=== PATIENT | female | born 1955 | race African-American/Black ===

== ENCOUNTER 2016-06-02 11:33 | Inpatient (IN) | payer MEDICARE, MEDICAID ==
--- NOTE | 2016-06-02 11:47 | ED Physician Chart ---
Chief Complaint/HPI - Patient Information Date Seen:: 06/02/16 Time Seen:: 11:42 Chief Complaint:: BEHAVIOR PROBLEM X 3 DAYS. History of Present Illness:: This 60-year-old female was referred to the emergency department for psychiatric evaluation. She has been striking out at other patients and staff and this began 3 days ago. The patient is unable to give any further information regarding her situation due to dementia. Allergies:: Allergies Allergy/AdvReac Type Severity Reaction Status Date / Time MDX Penicillin [Penicillin] Allergy Unknown Verified 11/22/12 20:18 Review of Systems - Review of Systems General/Constitutional: No fever, No chills, Weakness, No diaphoresis, Other ( patient had weakness on the left side in both the upper and the lower extremity. 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 CVA.) Skin: Other (the patient denies any skin lesions or isaac but has extensive areas of what appear to be skin grafting over her back and her extremities.) Head: No headache, No light-headedness Eyes: No loss of vision, No diplopia ENT: No earache, No nasal drainage, No sore throat Neck: No neck pain, No swelling, No thyromegaly, Stiffness (patient has stiffness in both the right hand and the left upper extremity.), No mass noted Cardio Vascular: No chest pain, No palpitations, No edema Pulmonary: No SOB, No cough, No sputum GI: No nausea, No vomiting, No diarrhea, No pain G/U: No dysuria, No frequency, No hematuria Clerical Aide: No abnormal vaginal bleed Musculoskeletal: No bone or joint pain, No muscle pain (it is unknown if the patient has a prior psychiatric history.) Psychiatric: Other ( It is unknown if the patient has a prior psychiatric history.) Hematopoietic: No bruising Neurological: No syncope, No weakness, No headache, No vertigo Past Medical History - Past Medical History Past Medical History: HTN, DM, Asthma/COPD, Dementia Social History: Care Facility Family Medical History - Family Member Mother History Unknown: Yes Physical Exam - Physical Examination General/Constitutional: Awake, Well-developed, well-nourished, Alert, No distress Other Gen/Cons comments:: Cooperative and follows directions. Non-ambulatory due to prior CVA. Head: Atraumatic Eyes: Lids, conjuctiva normal, EOMI (patient's EOM) Other Eyes comments:: The patient's extraocular muscles are intact with no nystagmus. She has very small pupils that do not respond further to light. She has moderate arcus of both eyes especially in the 12:00 areas. Skin: No rash, No ecchymosis, Well hydrated Other Skin comments:: As mentioned above the patient has what appear to be skin grafting over the back and right upper extremity. ENMT: Nasal exam nl, Lips, teeth, gums nl, Oropharynx nl, Tonsils nl Neck: Nontender, No JVD, No nuchal rigidity, No mass Respiratory: Nl effort/Exclusion Other Respiratory comments:: Patient has decreased breath sounds throughout with occasional expiratory wheezing. She does not appear to be in respiratory distress. Patient's pulse ox is 95% on room air. Other Cardio Vascular comments:: Patient's pulse rate is regular. Heart tones are extremely distant and I don't appreciate any murmurs or gallops. GI: No tenderness/rebounding/guarding, No organomegaly, No hernia, Normal BS's, Nondistended, No mass/bruits, No McBurney tenderness : No CVA tenderness Extremities: No tenderness or effusion, No edema Other Extremities comments:: Patient has severe contractures of both the right and the left hand. She was unable to open her fingers whatsoever on the right side. Patient has no calf tenderness or Homans sign. Other Neuro/Psych comments:: The patient is alert and oriented to the year. She also gives her name immediately without hesitation. The patient appears to be confabulating with some of her answers. Labs/Radiology/EKG Results - Lab Results Results: Single view portable AP chest x-ray: There is no cardiomegaly. No congestive failure or pleural effusions. No pneumothorax. Mediastinal widening. No areas of pulmonary consolidation or infiltrates. Impression: No acute cardiopulmonary findings. Laboratory Results - last 24 hr 06/02/16 06/02/16 06/02/16 12:00 12:00 13:00 WBC 9.6 RBC 5.68 H Hgb 17.1 H D Hct 51.6 H D MCV 90.9 MCH 30.0 MCHC Differential 33.1 RDW 12.3 Plt Count 451 H MPV 7.5 Neutrophils % 68.4 Lymphocytes % 23.8 Monocytes % 4.3 Eosinophils % 1.2 Basophils % 2.3 H Sodium 139 Potassium 4.1 Chloride 102 Carbon Dioxide 30.2 Anion Gap 10.9 BUN 24 Creatinine 1.0 Est GFR ( Amer) > 60.0 Est GFR (Non-Af Amer) 59.7 BUN/Creatinine Ratio 24.0 Glucose 102 Calcium 10.2 Total Bilirubin 0.3 AST 20 ALT 16 Alkaline Phosphatase 154 H Total Protein 8.0 Albumin 4.1 Globulin 3.9 Albumin/Globulin Ratio 1.1 Urine Source [place] Urine Color YELLOW Urine Clarity CLEAR Urine pH 6.0 Ur Specific [place] 1.025 Urine Protein NEGATIVE Urine Glucose (UA) NEGATIVE Urine Ketones NEGATIVE Urine Blood TRACE Urine Nitrate NEGATIVE Urine Bilirubin NEGATIVE Urine Urobilinogen 0.2 Ur Leukocyte Esterase NEGATIVE Urine RBC 2-5 Urine WBC 0-2 Ur Epithelial Cells FEW Urine Bacteria FEW Laboratory interpretation: The CBC shows no leukocytosis. The hemoglobin level is high at 17.1. This may be an indication of mild dehydration. Electrolytes were all within normal parameters. The patient's renal function is normal. There is mild elevation of the alkaline phosphatase with the other liver enzymes being within normal parameters. The UA shows no evidence for acute UTI. MDM: MEDICAL CAUSES OF ALTERED BEHAVIOR OR MENTATION: THE CXR WAS NEGATIVE FOR PNEUMONIA. LAB STUDIES WERE NEGATIVE FOR ANY SIGNIFICANT ABNORMALITIES. THIS CHANGE IN BEHAVIOR IS NOT ACCOUNTED FOR BY ELECTROLYTE IMBALANCE. SEPSIS, UTI OR PNEUMONIA. ED Septic Shock - . Is Septic Shock (SBP<90, OR Lactate>4 mmol\L) present?: No Reassessment (Disposition) - Reassessment Reassessment Condition:: Unchanged - Patient Disposition Discharge/Transfer:: Acute Care w/in this hosp ED Discharge Plan - Patient Disposition Admit/Discharge/Transfer: Other Care w/in this hosp Condition at Disposition: Improved
[2016-06-02 12:10] LABS: % BASOPHILS 2.3 % (0.0-2.0); % EOSINOPHILS 1.2 % (0.0-5.0); % LYMPHOCYTES 23.8 % (20.0-50.0); % MONOCYTES 4.3 % (2.0-10.0); % NEUTROPHILS 68.4 % (40.0-80.0); MEAN CELL VOLUME 90.9 fl (81-100); MEAN CORPUSCULAR HGB CONC 33.1 pg (28.0-36.0); MEAN PLATELET VOLUME 7.5 fl; NEUTROPHILE ABSOLUTE 6.6 Th/cmm (1.8-8.0); PLATELET COUNT 451 Th/cmm (150-400); RED BLOOD COUNT 5.68 Mil/cmm (3.80-5.10); RED CELL DISTRIBUTION WIDTH 12.3 % (11.5-20.0); WHITE BLOOD COUNT 9.6 Th/cmm (4.8-10.8)
[2016-06-02 12:16] LABS: HEMATOCRIT 51.6 % (35.0-45.0); HEMOGLOBIN 17.1 gm/dL (11.7-15.5)
[2016-06-02 12:25] LABS: ALB/GLOB RATIO 1.1 (1.0-1.8); ALKALINE PHOSPHATASE 154 U/L (34-104); ANION GAP 10.9 (7.0-16.0); BILIRUBIN,TOTAL 0.3 mg/dL (0.3-1.0); BUN - UREA NITROGEN 24 mg/dL (7-25); CALCIUM SERUM 10.2 mg/dL (8.6-10.3); CARBON DIOXIDE 30.2 mEq/L (21.0-31.0); CHLORIDE 102 mEq/L (98-107); GLUCOSE 102 mg/dL (70-105); POTASSIUM SERUM 4.1 mEq/L (3.5-5.1); SGOT 20 U/L (13-39); SGPT/ALT 16 U/L (7-52); SODIUM SERUM 139 mEq/L (136-145)
[2016-06-02 13:18] LABS: URINE BILIRUBIN NEGATIVE (NEGATIVE); URINE BLOOD TRACE (NEGATIVE); URINE COLOR YELLOW; URINE GLUCOSE (UA) NEGATIVE (NEGATIVE); URINE KETONE NEGATIVE (NEGATIVE); URINE PROTEIN NEGATIVE (NEGATIVE)
[2016-06-02 13:19] LABS: URINE UROBILINOGEN 0.2 E.U./dL (0.2 - 1.0)
[2016-06-02 13:27] LABS: URINE BACTERIA FEW /hpf (NONE SEEN); URINE EPITHELIAL CELLS FEW /lpf (FEW); URINE WBC 0-2 /hpf (0-5)
--- NOTE | 2016-06-02 14:03 | Diagnostic Imaging Report ---
CHEST X-RAY: AP view INDICATION: Pneumonia COMPARISON: None FINDINGS: Mild chronic changes are noted. There is no focal consolidation or pleural effusions heart size is normal. Mildly tortuous aorta is noted. Spinal scoliosis is noted. Nonspecific staple is seen projecting along left hilar region. IMPRESSION: No focal airspace consolidation identified.
[2016-06-02] MEDS ORDERED: Maalox 30 mL Cup PO PRN (15:50)
[2016-06-02] MEDS ORDERED: Magnesium Hydroxide (MOM) 30 mL UDC PO PRN (15:50)
[2016-06-02 16:24] VITALS: BP 154/74
[2016-06-02] MEDS ORDERED: Non-Formulary Item 1 EA (Mylanta 30 ML) PO PRN (17:27)
[2016-06-03] MEDS ORDERED: Non-Formulary Item 1 EA (Multivitamin [Multivitamins] 1 SGL) PO SCH (09:00)
[2016-06-03] MEDS: Aspirin 81mg Chewable Tab PO SCH (09:32)
[2016-06-03] MEDS: Triple Antibiotic 0.94 gm Pkt TP SCH (09:32)
[2016-06-03] MEDS: Multivitamin Tab PO SCH (09:32)
[2016-06-03] MEDS: Lactulose 10 Gm/15 mL 30mL UDC PO SCH ×2 (09:32→17:41)
--- NOTE | 2016-06-03 19:42 | Psychosocial Evaluation ---
ATTENDING PHYSICIAN: Vashti Moe M.D. IDENTIFYING DATA: The patient is a 60-year-old woman, resident of [facility]. Information was obtained by directly interviewing the patient as well as reviewing admission papers and they are reliable. JUSTIFICATION FOR HOSPITALIZATION: The patient is admitted here on a voluntary basis in view of her psychosis and agitation. CHIEF COMPLAINT: "I do not know." HISTORY OF PRESENT ILLNESS: This is the first psychiatric hospitalization to [facility] for this patient, who is reported to have been out of control, screaming and yelling and getting easily agitated and hence, the patient has been referred over here for stabilization. Chart is reviewed. The patient is interviewed. During the evaluation, the patient is stating that she has said everything, there is no need for her to give any more information and the patient is very guarded, suspicious and is turning away from me and most of the information has to be obtained by reviewing the charts and talking to the staff members. The patient is reported to have been diagnosed with psychosis and has been maintained on 2.5 mg of the Zyprexa prior to her being hospitalized. PAST PSYCHIATRIC HISTORY: Details are not known. MEDICAL HISTORY AND PHYSICAL EXAMINATION: Requested to be done by Dr. Montes. SUBSTANCE ABUSE HISTORY: None. PHYSICAL OR SEXUAL ABUSE HISTORY: None at this time. LEGAL PROBLEMS: None at this time. SOCIAL HISTORY: The patient is a resident of [facility]. MENTAL STATUS EXAMINATION: The patient is 60 years old, looking older than her stated age, superficially cooperative. Eye contact is poor. Mood is noted to be irritable. Affect is constricted. The patient is getting easily irritable. The patient has paranoid delusions, but denies any command hallucinations. The patient is alert and awake. Attention span and concentration are noted to be fair at this time. The patient has been getting easily upset even for simple questions. I am not able to get much of information from this patient yet. DIAGNOSTIC IMPRESSION: AXIS I: Psychotic disorder, unspecified, rule out schizophrenia chronic paranoid type. AXIS II: None. AXIS III: As per Dr. Montes. IMMEDIATE TREATMENT PLAN: The patient is going to be observed on Inpatient Unit, provided with supportive psychotherapy. The patient is going to be closely monitored. Once stabilized, the patient is going to be discharged to [facility], to be followed up on an outpatient basis. The patient here is going to be continued on the Zyprexa. JOB# [id number]
[2016-06-04] MEDS: Multivitamin Tab PO SCH (09:32)
[2016-06-04] MEDS: Aspirin 81mg Chewable Tab PO SCH (09:35)
[2016-06-04] MEDS: Triple Antibiotic 0.94 gm Pkt TP SCH (09:35)
[2016-06-04] MEDS: Lactulose 10 Gm/15 mL 30mL UDC PO SCH (09:38)
--- NOTE | 2016-06-04 22:25 | Progress Notes ---
TIME PATIENT SEEN: 12:30 p.m. SUBJECTIVE: Staff was spoken to. The patient is interviewed. Mood is noted to be irritable. Affect is constricted. Continues to be paranoid, has been displaying acute mood swings. The patient is currently on Zyprexa 2.5 mg and has been able to tolerate the medications. No side effects of medications are noted. ASSESSMENT: The patient is still psychotic and impulsive. PLAN: To continue the patient with supportive therapy and follow up. JOB# [id number]
[2016-06-05] MEDS: Lactulose 10 Gm/15 mL 30mL UDC PO SCH ×3 (09:32→17:01)
[2016-06-05] MEDS: Multivitamin Tab PO SCH (09:32)
[2016-06-05] MEDS: Triple Antibiotic 0.94 gm Pkt TP SCH (09:32)
[2016-06-05] MEDS: Aspirin 81mg Chewable Tab PO SCH (09:32)
--- NOTE | 2016-06-05 22:24 | Progress Notes ---
SUBJECTIVE: The patient was seen today. She remains superficially irritable with episodes of agitation, some yelling. The patient is still guarded, paranoid, talking to herself. Insight is poor. Judgment remains impaired. ASSESSMENT: The patient is still in psychotic phase. PLAN: We will continue medication management, continue stabilization, continue current level of care. The patient is receiving Zyprexa 2.5 mg by mouth at bedtime. Consider increasing dose gradually. The patient is also on Aricept 10 mg by mouth at bedtime. [facility]# [id number]
[2016-06-06] MEDS: Triple Antibiotic 0.94 gm Pkt TP SCH (09:33)
[2016-06-06] MEDS: Multivitamin Tab PO SCH (09:35)
[2016-06-06] MEDS: Aspirin 81mg Chewable Tab PO SCH (09:35)
[2016-06-06] MEDS: Lactulose 10 Gm/15 mL 30mL UDC PO SCH ×2 (09:36→17:45)
--- NOTE | 2016-06-07 02:30 | Progress Notes ---
SUBJECTIVE: The patient was seen, discussed with staff and chart reviewed. Still angry, irritable, easily agitated, prefers to stay by herself. The patient's insight is still limited. Judgment remains impaired. The patient however is taking her medications. The patient is currently on Zyprexa 2.5 mg p.o. at bedtime and she has no side effects. ASSESSMENT: The patient is still highly disorganized, still paranoid. PLAN: We will increase Zyprexa to 5 mg p.o. at bedtime. Monitor closely. JOB# [id number]
[2016-06-07] MEDS: Triple Antibiotic 0.94 gm Pkt TP SCH (09:20)
[2016-06-07] MEDS: Multivitamin Tab PO SCH (09:20)
[2016-06-07] MEDS: Aspirin 81mg Chewable Tab PO SCH (09:20)
[2016-06-07] MEDS: Lactulose 10 Gm/15 mL 30mL UDC PO SCH ×2 (09:20→17:45)
--- NOTE | 2016-06-08 04:10 | Progress Notes ---
SUBJECTIVE: The patient was seen, discussed with staff. Chart was reviewed. Still somewhat restless, anxious. Still with anger outbursts. Continues to have episodes where she is talking to herself. However, she is taking her medications. Sleep is fair. Appetite is still ____ on a low side. ASSESSMENT: The patient still in psychotic phase. PLAN: We will continue medication management, continue stabilization, continue supportive measures, monitor mood closely. [facility]# [id number]
[2016-06-08] MEDS: Lactulose 10 Gm/15 mL 30mL UDC PO SCH ×2 (08:26→17:36)
[2016-06-08] MEDS: Aspirin 81mg Chewable Tab PO SCH (08:27)
[2016-06-08] MEDS: Multivitamin Tab PO SCH (08:27)
[2016-06-08] MEDS: Triple Antibiotic 0.94 gm Pkt TP SCH (14:54)
--- NOTE | 2016-06-08 19:45 | History & Physical ---
INTERNAL MEDICINE HISTORY AND PHYSICAL: DATE OF ADMISSION: 06/02/2016 DATE OF TRANSFER: 06/08/2016 CHIEF COMPLAINT: Increasing agitation. HISTORY OF PRESENT ILLNESS: This is a 61-year-old -[place] female with history of stroke, gastritis, generalized contractures and COPD, who was admitted from a nursing facility under ____ Dr. Smith. The patient ____ shortness of breath, nausea and vomiting. PAST MEDICAL HISTORY: As mentioned in History of Present illness. PAST SURGICAL HISTORY: Denies surgeries in the past. ALLERGIES: Penicillin. MEDICATIONS: Aspirin, Tylenol, Aricept, lactulose, metoprolol, multivitamins, Zyprexa. FAMILY HISTORY: Noncontributory SOCIAL HISTORY: The patient smokes. Denies alcohol or intravenous drug use. Single. REVIEW OF SYSTEMS: This is limited secondary to the patient's current mental status. We will try to obtain more detailed review of system at a later date ____ number [phone]. Also try to get information from the patient's primary care doctor at the nursing facility as well as from Dr. Smith . PHYSICAL EXAMINATION: VITAL SIGNS: Blood pressure 130/___, respirations 20, pulse 69, temperature 97.6. GENERAL: An elderly female, appears stated age, appears chronically ill. NECK: Supple. No mass. EXTREMITIES: Positive contractures in upper extremities. LUNGS: Equal breath sounds, otherwise clear to auscultation. HEART: Regular rate and rhythm without appreciable murmurs. ABDOMEN: Soft, nontender, globular. Positive bowel sounds. EXTREMITIES: Positive contractures as mentioned above. NEUROLOGIC: Decreased motor and sensory. Gait not seen. LABORATORY DATA: WBC 9.6, hemoglobin 17.1, platelets are 451. Sodium 139, potassium ____, BUN 24, creatinine 1.0. Blood sugar 139. ____. ASSESSMENT AND PLAN: 1. Chronic obstructive pulmonary disease. 2. Erythrocytosis. 3. Stroke. 4. Gastritis. 5. Contractures. 6. Hyperglycemia. 7. Hypertension. 8. Asthma. We will continue the patient on oxygen and bronchodilator treatments; continue on Plavix and aspirin. We will place her on fall precaution. Continue her on beta-tri. We will continue to follow the patient closely. JOB# [id number]
--- NOTE | 2016-06-09 05:05 | Progress Notes ---
SUBJECTIVE: The patient was seen, discussed with staff. Still irritable, talking to herself, some paranoia, episodes of agitation, but less compared to the time of admission. The patient is taking her medications. Sleep is fair. Appetite is little bit better. Insight is still poor, judgment still impaired. ASSESSMENT: The patient continues to be in psychotic phase. PLAN: Continue hospitalization and monitor closely. [facility]# [id number]
[2016-06-09] MEDS: Lactulose 10 Gm/15 mL 30mL UDC PO SCH ×2 (08:48→16:06)
[2016-06-09] MEDS: Multivitamin Tab PO SCH (08:50)
[2016-06-09] MEDS: Aspirin 81mg Chewable Tab PO SCH (08:50)
[2016-06-09] MEDS: Triple Antibiotic 0.94 gm Pkt TP SCH (08:51)
--- NOTE | 2016-06-09 15:03 | Internal Medicine Prog Note ---
Internal Medicine Subjective - Subjective Service Date: 06/09/16 Patient seen and examined:: with staff Patient is:: awake Per staff patient is:: no adverse event Internal Medicine Objective - Results Result Diagrams: 06/02/16 12:00 06/02/16 12:00 Recent Labs: Laboratory Last Values WBC 9.6 Th/cmm (4.8-10.8) 06/02/16 12:00 RBC 5.68 Mil/cmm (3.80-5.10) H 06/02/16 12:00 Hgb 17.1 gm/dL (11.7-15.5) H D 06/02/16 12:00 Hct 51.6 % (35.0-45.0) H D 06/02/16 12:00 MCV 90.9 fl (81-100) 06/02/16 12:00 MCH 30.0 pg (27.0-31.0) 06/02/16 12:00 MCHC Differential 33.1 pg (28.0-36.0) 06/02/16 12:00 RDW 12.3 % (11.5-20.0) 06/02/16 12:00 Plt Count 451 Th/cmm (150-400) H 06/02/16 12:00 MPV 7.5 fl 06/02/16 12:00 Neutrophils % 68.4 % (40.0-80.0) 06/02/16 12:00 Lymphocytes % 23.8 % (20.0-50.0) 06/02/16 12:00 Monocytes % 4.3 % (2.0-10.0) 06/02/16 12:00 Eosinophils % 1.2 % (0.0-5.0) 06/02/16 12:00 Basophils % 2.3 % (0.0-2.0) H 06/02/16 12:00 Sodium 139 mEq/L (136-145) 06/02/16 12:00 Potassium 4.1 mEq/L (3.5-5.1) 06/02/16 12:00 Chloride 102 mEq/L (98-107) 06/02/16 12:00 Carbon Dioxide 30.2 mEq/L (21.0-31.0) 06/02/16 12:00 Anion Gap 10.9 (7.0-16.0) 06/02/16 12:00 BUN 24 mg/dL (7-25) 06/02/16 12:00 Creatinine 1.0 mg/dL (0.6-1.2) 06/02/16 12:00 Est GFR ( Amer) > 60.0 ml/min (>90) 06/02/16 12:00 Est GFR (Non-Af Amer) 59.7 ml/min 06/02/16 12:00 BUN/Creatinine Ratio 24.0 06/02/16 12:00 Glucose 102 mg/dL (70-105) 06/02/16 12:00 POC Glucose 159 MG/DL (70 - 105) H 06/02/16 20:07 Calcium 10.2 mg/dL (8.6-10.3) 06/02/16 12:00 Total Bilirubin 0.3 mg/dL (0.3-1.0) 06/02/16 12:00 AST 20 U/L (13-39) 06/02/16 12:00 ALT 16 U/L (7-52) 06/02/16 12:00 Alkaline Phosphatase 154 U/L (34-104) H 06/02/16 12:00 Total Protein 8.0 gm/dL (6.0-8.3) 06/02/16 12:00 Albumin 4.1 gm/dL (3.7-5.3) 06/02/16 12:00 Globulin 3.9 gm/dL 06/02/16 12:00 Albumin/Globulin Ratio 1.1 (1.0-1.8) 06/02/16 12:00 Urine Source [place] 06/02/16 13:00 Urine Color YELLOW 06/02/16 13:00 Urine Clarity CLEAR (CLEAR) 06/02/16 13:00 Urine pH 6.0 06/02/16 13:00 Ur Specific [place] 1.025 (1.005-1.030) 06/02/16 13:00 Urine Protein NEGATIVE mg/dL (NEGATIVE) 06/02/16 13:00 Urine Glucose (UA) NEGATIVE mg/dL (NEGATIVE) 06/02/16 13:00 Urine Ketones NEGATIVE mg/dL (NEGATIVE) 06/02/16 13:00 Urine Blood TRACE (NEGATIVE) 06/02/16 13:00 Urine Nitrate NEGATIVE (NEGATIVE) 06/02/16 13:00 Urine Bilirubin NEGATIVE (NEGATIVE) 06/02/16 13:00 Urine Urobilinogen 0.2 E.U./dL (0.2 - 1.0) 06/02/16 13:00 Ur Leukocyte Esterase NEGATIVE (NEGATIVE) 06/02/16 13:00 Urine RBC 2-5 /hpf (0-5) 06/02/16 13:00 Urine WBC 0-2 /hpf (0-5) 06/02/16 13:00 Ur Epithelial Cells FEW /lpf (FEW) 06/02/16 13:00 Urine Bacteria FEW /hpf (NONE SEEN) 06/02/16 13:00 - Physical Exam Vitals and I&O: Vital Signs Temp 97.5 F 06/09/16 06:14 Pulse 66 06/09/16 08:49 Resp 18 06/09/16 06:14 BP 117/63 06/09/16 08:49 Pulse Ox 98 06/09/16 06:14 Intake & Output 06/08/16 06/09/16 06/09/16 18:59 06:59 18:59 Intake Total 800 120 Balance 800 120 Intake: Oral 800 120 Other: # Voids 3 3 # Bowel Movements 0 Active Medications: Current Medications Acetaminophen (Tylenol) 650 mg PO Q4HR PRN PRN Reason: PAIN OR TEMP >100.5 Stop: 08/01/16 17:26 Al Hydrox/Mg Hydrox/Simethicone (Maalox) 30 ml PO Q4HR PRN PRN Reason: GI DISTRESS Stop: 08/01/16 15:49 Aspirin (Aspirin Chewable) 81 mg PO DAILY [facility] Stop: 08/02/16 08:59 Last Admin: 06/09/16 08:50 Dose: 81 mg Clonidine HCl (Catapres) 0.1 mg PO Q8H PRN PRN Reason: HTN Stop: 08/01/16 17:26 Clopidogrel Bisulfate (Plavix) 75 mg PO DAILY [facility] Stop: 08/02/16 08:59 Last Admin: 06/09/16 08:50 Dose: 75 mg Donepezil HCl (Aricept) 5 mg PO HS [facility] Stop: 08/01/16 20:59 Last Admin: 06/08/16 20:38 Dose: 5 mg Lactulose (Cephulac) 20 gm PO BID [facility] Stop: 08/02/16 08:59 Last Admin: 03/03/17 08:48 Dose: 20 gm Lorazepam (Ativan) 0.5 mg PO Q4HR PRN; Protocol PRN Reason: Anxiety Stop: 07/02/16 15:49 Magnesium Oxide (Mag-Oxide) 400 mg PO DAILY [facility] Stop: 08/02/16 08:59 Last Admin: 06/09/16 08:49 Dose: 400 mg Metoprolol Succinate (Toprol Xl) 25 mg PO DAILY [facility] Stop: 08/02/16 08:59 Last Admin: 06/09/16 08:49 Dose: Not Given Multivitamins/Vitamin C (Theragran) 1 tab PO DAILY [facility] Stop: 08/02/16 08:59 Last Admin: 06/09/16 08:50 Dose: 1 tab Neomycin/Polymyxin/Bacitracin (Triple Antibiotic Pkt) 1 pkt TP DAILY [facility] Stop: 08/02/16 08:59 Last Admin: 06/09/16 08:51 Dose: Not Given Olanzapine (Zyprexa) 5 mg PO HS [facility] PRN Reason: Protocol Stop: 08/05/16 20:59 Last Admin: 06/08/16 20:38 Dose: 5 mg Zolpidem Tartrate (Ambien) 5 mg PO HS PRN PRN Reason: Insomnia Stop: 08/01/16 15:49 General: alert HEENT: NC/AT, PERRLA Neck: Supple Lungs: CTAB Cardiovascular: RRR, Normal S1, Normal S2, without murmur Abdomen: soft non-tender, non-distended, positive bowel sound Extremities: clear Neurological: no change Internal Medicine Assmt/Plan - Assessment Assessment: COPD ERYTHROCYTOSIS STROKE GASTRITIS CONTRACTURES HYPERGLYCEMIA HTN ASTHMA - Plan Plan: BRONCHODILATORS NEEDED MONITOR GLUCOSE PPI CPM
--- NOTE | 2016-06-09 22:58 | Progress Notes ---
SUBJECTIVE: I met this patient, discussed with staff, chart reviewed. Remains angry, still talking to herself, some episodes of hitting staff when they are trying to assist her with her ADLs. The patient's insight is limited, judgment remains impaired; however, she is taking her medications and she is tolerating Seroquel well. ASSESSMENT: The patient is still highly agitated. PLAN: We will continue hospitalization, continue to monitor closely. [facility]# [id number]
[2016-06-10 08:09] LABS: HEMATOCRIT 51.2 % (35.0-45.0); MEAN CELL VOLUME 90.6 fl (81-100); MEAN CORPUSCULAR HGB CONC 33.1 pg (28.0-36.0); MEAN PLATELET VOLUME 7.4 fl; PLATELET COUNT 387 Th/cmm (150-400); RED BLOOD COUNT 5.66 Mil/cmm (3.80-5.10); RED CELL DISTRIBUTION WIDTH 12.3 % (11.5-20.0)
[2016-06-10 08:11] LABS: WHITE BLOOD COUNT 14.4 Th/cmm (4.8-10.8)
[2016-06-10 08:25] LABS: ANION GAP 10.7 (7.0-16.0); BUN - UREA NITROGEN 25 mg/dL (7-25); BUN/CREATININE RATIO 27.8; CARBON DIOXIDE 27.2 mEq/L (21.0-31.0); CHLORIDE 106 mEq/L (98-107); CREATININE - SERUM 0.9 mg/dL (0.6-1.2); GLUCOSE 101 mg/dL (70-105); SODIUM SERUM 138 mEq/L (136-145)
[2016-06-10 08:33] LABS: POTASSIUM SERUM 5.9 mEq/L (3.5-5.1)
[2016-06-10] MEDS: Lactulose 10 Gm/15 mL 30mL UDC PO SCH ×2 (08:50→17:00)
[2016-06-10] MEDS: Multivitamin Tab PO SCH (08:50)
[2016-06-10] MEDS: Aspirin 81mg Chewable Tab PO SCH (08:51)
[2016-06-10] MEDS: Triple Antibiotic 0.94 gm Pkt TP SCH (08:59)
[2016-06-10 11:43] LABS: TOTAL CELLS COUNTED 100
[2016-06-10 11:44] LABS: EOSINOPHIL 3 % (0-5); NEUTROPHILS 66 % (40-80); PLATELET ESTIMATE ADEQUATE (NORMAL); PLATELET MORPHOLOGY NORMAL (NORMAL)
--- NOTE | 2016-06-10 16:28 | Internal Medicine Prog Note ---
Internal Medicine Subjective - Subjective Patient seen and examined:: with staff, chart reviewed Patient is:: awake, verbal, interactive Per staff patient is:: no adverse event, no episodes of fall, confused Internal Medicine Objective - Results Result Diagrams: 06/10/16 07:57 06/10/16 06:00 Recent Labs: Laboratory Last Values WBC 14.4 Th/cmm (4.8-10.8) H D 06/10/16 07:57 RBC 5.66 Mil/cmm (3.80-5.10) H 06/10/16 07:57 Hgb 17.0 gm/dL (11.7-15.5) H 06/10/16 07:57 Hct 51.2 % (35.0-45.0) H 06/10/16 07:57 MCV 90.6 fl (81-100) 06/10/16 07:57 MCH 30.0 pg (27.0-31.0) 06/10/16 07:57 MCHC Differential 33.1 pg (28.0-36.0) 06/10/16 07:57 RDW 12.3 % (11.5-20.0) 06/10/16 07:57 Plt Count 387 Th/cmm (150-400) 06/10/16 07:57 MPV 7.4 fl 06/10/16 07:57 Neutrophils % 68.4 % (40.0-80.0) 06/02/16 12:00 Lymphocytes % 23.8 % (20.0-50.0) 06/02/16 12:00 Monocytes % 4.3 % (2.0-10.0) 06/02/16 12:00 Eosinophils % 1.2 % (0.0-5.0) 06/02/16 12:00 Basophils % 2.3 % (0.0-2.0) H 06/02/16 12:00 Neutrophils (Manual) 66 % (40-80) 06/10/16 07:57 Lymphocytes 27 % (20-50) 06/10/16 07:57 Monocytes 4 % (2-10) 06/10/16 07:57 Eosinophils 3 % (0-5) 06/10/16 07:57 Platelet Estimate ADEQUATE (NORMAL) 06/10/16 07:57 Platelet Morphology NORMAL (NORMAL) 06/10/16 07:57 RBC Morph Micro Appear NORMAL (NORMAL) 06/10/16 07:57 Sodium 138 mEq/L (136-145) 06/10/16 06:00 Potassium 5.9 mEq/L (3.5-5.1) H 06/10/16 06:00 Chloride 106 mEq/L (98-107) 06/10/16 06:00 Carbon Dioxide 27.2 mEq/L (21.0-31.0) 06/10/16 06:00 Anion Gap 10.7 (7.0-16.0) 06/10/16 06:00 BUN 25 mg/dL (7-25) 06/10/16 06:00 Creatinine 0.9 mg/dL (0.6-1.2) 06/10/16 06:00 Est GFR ( Amer) > 60.0 ml/min (>90) 06/10/16 06:00 Est GFR (Non-Af Amer) > 60.0 ml/min 06/10/16 06:00 BUN/Creatinine Ratio 27.8 06/10/16 06:00 Glucose 101 mg/dL (70-105) 06/10/16 06:00 POC Glucose 159 MG/DL (70 - 105) H 06/02/16 20:07 Calcium 10.0 mg/dL (8.6-10.3) 06/10/16 06:00 Total Bilirubin 0.3 mg/dL (0.3-1.0) 06/02/16 12:00 AST 20 U/L (13-39) 06/02/16 12:00 ALT 16 U/L (7-52) 06/02/16 12:00 Alkaline Phosphatase 154 U/L (34-104) H 06/02/16 12:00 Total Protein 8.0 gm/dL (6.0-8.3) 06/02/16 12:00 Albumin 4.1 gm/dL (3.7-5.3) 06/02/16 12:00 Globulin 3.9 gm/dL 06/02/16 12:00 Albumin/Globulin Ratio 1.1 (1.0-1.8) 06/02/16 12:00 Urine Source MC[place]RE [place] 06/02/16 13:00 Urine Color YELLOW 06/02/16 13:00 Urine Clarity CLEAR (CLEAR) 06/02/16 13:00 Urine pH 6.0 06/02/16 13:00 Ur Specific [place] 1.025 (1.005-1.030) 06/02/16 13:00 Urine Protein NEGATIVE mg/dL (NEGATIVE) 06/02/16 13:00 Urine Glucose (UA) NEGATIVE mg/dL (NEGATIVE) 06/02/16 13:00 Urine Ketones NEGATIVE mg/dL (NEGATIVE) 06/02/16 13:00 Urine Blood TRACE (NEGATIVE) 06/02/16 13:00 Urine Nitrate NEGATIVE (NEGATIVE) 06/02/16 13:00 Urine Bilirubin NEGATIVE (NEGATIVE) 06/02/16 13:00 Urine Urobilinogen 0.2 E.U./dL (0.2 - 1.0) 06/02/16 13:00 Ur Leukocyte Esterase NEGATIVE (NEGATIVE) 06/02/16 13:00 Urine RBC 2-5 /hpf (0-5) 06/02/16 13:00 Urine WBC 0-2 /hpf (0-5) 06/02/16 13:00 Ur Epithelial Cells FEW /lpf (FEW) 06/02/16 13:00 Urine Bacteria FEW /hpf (NONE SEEN) 06/02/16 13:00 - Physical Exam Vitals and I&O: Vital Signs Temp 97.6 F 06/10/16 14:00 Pulse 90 06/10/16 14:00 Resp 20 06/10/16 14:00 BP 141/80 06/10/16 14:00 Pulse Ox 97 06/10/16 14:00 Intake & Output 06/09/16 06/10/16 06/10/16 18:59 06:59 18:59 Intake Total 900 Balance 900 Weight (lbs) 62.188 kg Intake: Oral 900 Other: # Voids 3 2 # Bowel Movements 1 Active Medications: Current Medications Acetaminophen (Tylenol) 650 mg PO Q4HR PRN PRN Reason: PAIN OR TEMP >100.5 Stop: 08/01/16 17:26 Al Hydrox/Mg Hydrox/Simethicone (Maalox) 30 ml PO Q4HR PRN PRN Reason: GI DISTRESS Stop: 08/01/16 15:49 Aspirin (Aspirin Chewable) 81 mg PO DAILY BEREKET Stop: 08/02/16 08:59 Last Admin: 06/10/16 08:51 Dose: 81 mg Clonidine HCl (Catapres) 0.1 mg PO Q8H PRN PRN Reason: HTN Stop: 08/01/16 17:26 Clopidogrel Bisulfate (Plavix) 75 mg PO DAILY BEREKET Stop: 08/02/16 08:59 Last Admin: 06/10/16 08:50 Dose: 75 mg Donepezil HCl (Aricept) 5 mg PO HS BEREKET Stop: 08/01/16 20:59 Last Admin: 06/09/16 20:27 Dose: 5 mg Lactulose (Cephulac) 20 gm PO BID BEREKET Stop: 08/02/16 08:59 Last Admin: 06/10/16 08:50 Dose: 20 gm Lorazepam (Ativan) 0.5 mg PO Q4HR PRN; Protocol PRN Reason: Anxiety Stop: 07/02/16 15:49 Magnesium Oxide (Mag-Oxide) 400 mg PO DAILY BEREKET Stop: 08/02/16 08:59 Last Admin: 06/10/16 08:51 Dose: 400 mg Metoprolol Succinate (Toprol Xl) 25 mg PO DAILY BEREKET Stop: 08/02/16 08:59 Last Admin: 06/10/16 08:51 Dose: Not Given Multivitamins/Vitamin C (Theragran) 1 tab PO DAILY BEREKET Stop: 08/02/16 08:59 Last Admin: 06/10/16 08:50 Dose: 1 tab Neomycin/Polymyxin/Bacitracin (Triple Antibiotic Pkt) 1 pkt TP DAILY BEREKET Stop: 08/02/16 08:59 Last Admin: 06/10/16 08:59 Dose: Not Given Olanzapine (Zyprexa) 5 mg PO HS BEREKET PRN Reason: Protocol Stop: 08/05/16 20:59 Last Admin: 06/09/16 20:27 Dose: 5 mg Zolpidem Tartrate (Ambien) 5 mg PO HS PRN PRN Reason: Insomnia Stop: 08/01/16 15:49 General: alert, demented HEENT: NC/AT, PERRLA Neck: Supple, No JVD Lungs: CTAB Cardiovascular: RRR, Normal S1, Normal S2 Abdomen: soft non-tender, globular Extremities: clear, excoriation, contracture Neurological: no change Internal Medicine Assmt/Plan - Assessment Assessment: COPD ERYTHROCYTOSIS STROKE GASTRITIS CONTRACTURES HYPERGLYCEMIA HTN ASTHMA - Plan Plan: o2 bronchodilator tx fall precaution cont on bp meds dw rn Nutritional Asmnt/Malnutr-PDOC - Dietary Evaluation Malnutrition Findings (Please click <Entered> for more info): Nutritional Asmnt/Malnutrition Start: 06/09/16 16: 21 Text: Status: Complete Freq: Document 06/09/16 16:21 GSUN (Rec: 06/09/16 16:30 GSUN [email or web address]) Nutritional Asmnt/Malnutrition Patient General Information Nutritional Screening Moderate Risk Screening Diagnosis Agitation Pertinent Medical Hx/Surgical Hx Stroke, gastritis, generalized contractures, COPD, smokes, unspecified psychotic disorder Subjective Information 60 year old female from SNF. RD attempted visit twice, first time pt was asleep, second time pt remained silent . Per nursing staff, no nutritional concerns at this time. PO intake 75-100% since adm, meeting nutritional needs . Mild wasting to the temporals noted. Current Diet Order/ Nutrition Support Regular Pertinent Medications Maalox, Mag-Oxide, Theragran Pertinent Labs Reviewed. Glucose 159H. Nutritional Hx/Data Height 1.78 m Height (Calculated Centimeters) 177.8 Current Weight (lbs) 62.188 kg Weight (Calculated Kilograms) 62.2 Weight (Calculated Grams) 28091.5 [place] Body Weight 150lb Weight Status Approriate GI Symptoms Cultural/Ethnic/Spiritism Belief Unknown. Usual diet at home Unknown. Skin Integrity/Comment: [place] 16. Skin intact. Estimated Nutritional Goals Calories/Kcals/Kg IBW 68.1kg, 25-30kcal/kg Kcals Calculated 1703-2043kcal Protein g/kg: IBW 1g/kg Protein Calculated 68g Fluid: ml 1703-2043ml (1ml/kcal) Nutritional Problem 1. Problem Problem No nutritional problems at this time. Intervention/Recommendation Comments 1. Continue with regular diet. Current PO intake is adequate . Expected Outcomes/Goals Expected Outcomes/Goals 1. PO intake continue to meet at least 75% of estimated nutritional needs.
--- NOTE | 2016-06-10 22:42 | Progress Notes ---
SUBJECTIVE: The patient was seen, discussed with staff. Still restless and agitated at times, still with episodes where she requires redirection by staff, talking to herself, episodes of yelling. However, she is taking her medications and she has no sedation. The patient continues to have episodes where she has grinding. ASSESSMENT: The patient is still in psychotic phase. PLAN: We will continue medication management, continue supportive measures, continue stabilization, monitor mood closely. [facility]# [id number]
[2016-06-11 08:49] LABS: ANION GAP 7.7 (7.0-16.0); BUN - UREA NITROGEN 19 mg/dL (7-25); BUN/CREATININE RATIO 23.8; CALCIUM SERUM 9.8 mg/dL (8.6-10.3); CARBON DIOXIDE 30.4 mEq/L (21.0-31.0); CHLORIDE 106 mEq/L (98-107); CREATININE - SERUM 0.8 mg/dL (0.6-1.2); GLUCOSE 111 mg/dL (70-105); POTASSIUM SERUM 4.1 mEq/L (3.5-5.1); SODIUM SERUM 140 mEq/L (136-145)
[2016-06-11] MEDS: Aspirin 81mg Chewable Tab PO SCH (08:54)
[2016-06-11] MEDS: Lactulose 10 Gm/15 mL 30mL UDC PO SCH ×2 (08:54→17:04)
[2016-06-11] MEDS: Multivitamin Tab PO SCH (08:54)
[2016-06-11] MEDS: Triple Antibiotic 0.94 gm Pkt TP SCH (08:55)
--- NOTE | 2016-06-11 15:28 | Internal Medicine Prog Note ---
Internal Medicine Subjective - Subjective Patient seen and examined:: with staff, chart reviewed Patient is:: awake, verbal, interactive Per staff patient is:: no adverse event, poor appetite, confused Internal Medicine Objective - Results Result Diagrams: 06/10/16 07:57 06/11/16 08:05 Recent Labs: Laboratory Last Values WBC 14.4 Th/cmm (4.8-10.8) H D 06/10/16 07:57 RBC 5.66 Mil/cmm (3.80-5.10) H 06/10/16 07:57 Hgb 17.0 gm/dL (11.7-15.5) H 06/10/16 07:57 Hct 51.2 % (35.0-45.0) H 06/10/16 07:57 MCV 90.6 fl (81-100) 06/10/16 07:57 MCH 30.0 pg (27.0-31.0) 06/10/16 07:57 MCHC Differential 33.1 pg (28.0-36.0) 06/10/16 07:57 RDW 12.3 % (11.5-20.0) 06/10/16 07:57 Plt Count 387 Th/cmm (150-400) 06/10/16 07:57 MPV 7.4 fl 06/10/16 07:57 Neutrophils % 68.4 % (40.0-80.0) 06/02/16 12:00 Lymphocytes % 23.8 % (20.0-50.0) 06/02/16 12:00 Monocytes % 4.3 % (2.0-10.0) 06/02/16 12:00 Eosinophils % 1.2 % (0.0-5.0) 06/02/16 12:00 Basophils % 2.3 % (0.0-2.0) H 06/02/16 12:00 Neutrophils (Manual) 66 % (40-80) 06/10/16 07:57 Lymphocytes 27 % (20-50) 06/10/16 07:57 Monocytes 4 % (2-10) 06/10/16 07:57 Eosinophils 3 % (0-5) 06/10/16 07:57 Platelet Estimate ADEQUATE (NORMAL) 06/10/16 07:57 Platelet Morphology NORMAL (NORMAL) 06/10/16 07:57 RBC Morph Micro Appear NORMAL (NORMAL) 06/10/16 07:57 Sodium 140 mEq/L (136-145) 06/11/16 08:05 Potassium 4.1 mEq/L (3.5-5.1) 06/11/16 08:05 Chloride 106 mEq/L (98-107) 06/11/16 08:05 Carbon Dioxide 30.4 mEq/L (21.0-31.0) 06/11/16 08:05 Anion Gap 7.7 (7.0-16.0) 06/11/16 08:05 BUN 19 mg/dL (7-25) 06/11/16 08:05 Creatinine 0.8 mg/dL (0.6-1.2) 06/11/16 08:05 Est GFR ( Amer) > 60.0 ml/min (>90) 06/11/16 08:05 Est GFR (Non-Af Amer) > 60.0 ml/min 06/11/16 08:05 BUN/Creatinine Ratio 23.8 06/11/16 08:05 Glucose 111 mg/dL (70-105) H 06/11/16 08:05 POC Glucose 159 MG/DL (70 - 105) H 06/02/16 20:07 Calcium 9.8 mg/dL (8.6-10.3) 06/11/16 08:05 Total Bilirubin 0.3 mg/dL (0.3-1.0) 06/02/16 12:00 AST 20 U/L (13-39) 06/02/16 12:00 ALT 16 U/L (7-52) 06/02/16 12:00 Alkaline Phosphatase 154 U/L (34-104) H 06/02/16 12:00 Total Protein 8.0 gm/dL (6.0-8.3) 06/02/16 12:00 Albumin 4.1 gm/dL (3.7-5.3) 06/02/16 12:00 Globulin 3.9 gm/dL 06/02/16 12:00 Albumin/Globulin Ratio 1.1 (1.0-1.8) 06/02/16 12:00 Urine Source [place] 06/02/16 13:00 Urine Color YELLOW 06/02/16 13:00 Urine Clarity CLEAR (CLEAR) 06/02/16 13:00 Urine pH 6.0 06/02/16 13:00 Ur Specific [place] 1.025 (1.005-1.030) 06/02/16 13:00 Urine Protein NEGATIVE mg/dL (NEGATIVE) 06/02/16 13:00 Urine Glucose (UA) NEGATIVE mg/dL (NEGATIVE) 06/02/16 13:00 Urine Ketones NEGATIVE mg/dL (NEGATIVE) 06/02/16 13:00 Urine Blood TRACE (NEGATIVE) 06/02/16 13:00 Urine Nitrate NEGATIVE (NEGATIVE) 06/02/16 13:00 Urine Bilirubin NEGATIVE (NEGATIVE) 06/02/16 13:00 Urine Urobilinogen 0.2 E.U./dL (0.2 - 1.0) 06/02/16 13:00 Ur Leukocyte Esterase NEGATIVE (NEGATIVE) 06/02/16 13:00 Urine RBC 2-5 /hpf (0-5) 06/02/16 13:00 Urine WBC 0-2 /hpf (0-5) 06/02/16 13:00 Ur Epithelial Cells FEW /lpf (FEW) 06/02/16 13:00 Urine Bacteria FEW /hpf (NONE SEEN) 06/02/16 13:00 - Physical Exam Vitals and I&O: Vital Signs Temp 97.6 F 06/10/16 14:00 Pulse 84 06/11/16 08:54 Resp 20 06/10/16 20:00 BP 143/98 06/11/16 08:54 Pulse Ox 97 06/10/16 14:00 Intake & Output 06/10/16 06/11/16 06/11/16 18:59 06:59 18:59 Intake Total 800 Balance 800 Intake: Oral 800 Other: # Voids 3 # Bowel Movements 1 Active Medications: Current Medications Acetaminophen (Tylenol) 650 mg PO Q4HR PRN PRN Reason: PAIN OR TEMP >100.5 Stop: 08/01/16 17:26 Al Hydrox/Mg Hydrox/Simethicone (Maalox) 30 ml PO Q4HR PRN PRN Reason: GI DISTRESS Stop: 08/01/16 15:49 Aspirin (Aspirin Chewable) 81 mg PO DAILY BEREKET Stop: 08/02/16 08:59 Last Admin: 06/11/16 08:54 Dose: 81 mg Clonidine HCl (Catapres) 0.1 mg PO Q8H PRN PRN Reason: HTN Stop: 08/01/16 17:26 Clopidogrel Bisulfate (Plavix) 75 mg PO DAILY BEREKET Stop: 08/02/16 08:59 Last Admin: 06/11/16 08:54 Dose: 75 mg Donepezil HCl (Aricept) 5 mg PO HS BEREKET Stop: 08/01/16 20:59 Last Admin: 06/10/16 20:48 Dose: 5 mg Lactulose (Cephulac) 20 gm PO BID BEREKET Stop: 08/02/16 08:59 Last Admin: 06/11/16 08:54 Dose: 20 gm Lorazepam (Ativan) 0.5 mg PO Q4HR PRN; Protocol PRN Reason: Anxiety Stop: 07/02/16 15:49 Magnesium Oxide (Mag-Oxide) 400 mg PO DAILY BEREKET Stop: 08/02/16 08:59 Last Admin: 06/11/16 08:54 Dose: 400 mg Metoprolol Succinate (Toprol Xl) 25 mg PO DAILY BEREKET Stop: 08/02/16 08:59 Last Admin: 06/11/16 08:54 Dose: 25 mg Multivitamins/Vitamin C (Theragran) 1 tab PO DAILY BEREKET Stop: 08/02/16 08:59 Last Admin: 06/11/16 08:54 Dose: 1 tab Neomycin/Polymyxin/Bacitracin (Triple Antibiotic Pkt) 1 pkt TP DAILY BEREKET Stop: 08/02/16 08:59 Last Admin: 06/11/16 08:55 Dose: Not Given Olanzapine (Zyprexa) 5 mg PO HS BEREKET PRN Reason: Protocol Stop: 08/05/16 20:59 Last Admin: 06/10/16 20:48 Dose: 5 mg Zolpidem Tartrate (Ambien) 5 mg PO HS PRN PRN Reason: Insomnia Stop: 08/01/16 15:49 General: demented HEENT: NC/AT, PERRLA Neck: Supple, No JVD Lungs: CTAB Cardiovascular: RRR, Normal S1, Normal S2 Abdomen: soft non-tender, globular, positive bowel sound Extremities: clear, excoriation Neurological: no change, disorganized, gait stable Internal Medicine Assmt/Plan - Assessment Assessment: COPD ERYTHROCYTOSIS STROKE GASTRITIS CONTRACTURES HYPERGLYCEMIA HTN ASTHMA - Plan Plan: o2 bronchodilator tx fall precaution cont on bp meds dw rn Nutritional Asmnt/Malnutr-PDOC - Dietary Evaluation Malnutrition Findings (Please click <Entered> for more info): Nutritional Asmnt/Malnutrition Start: 06/09/16 16: 21 Text: Status: Complete Freq: Document 06/09/16 16:21 GSUN (Rec: 06/09/16 16:30 GSTINO [email or web address]) Nutritional Asmnt/Malnutrition Patient General Information Nutritional Screening Moderate Risk Screening Diagnosis Agitation Pertinent Medical Hx/Surgical Hx Stroke, gastritis, generalized contractures, COPD, smokes, unspecified psychotic disorder Subjective Information 60 year old female from SNF. RD attempted visit twice, first time pt was asleep, second time pt remained silent . Per nursing staff, no nutritional concerns at this time. PO intake 75-100% since adm, meeting nutritional needs . Mild wasting to the temporals noted. Current Diet Order/ Nutrition Support Regular Pertinent Medications Maalox, Mag-Oxide, Theragran Pertinent Labs Reviewed. Glucose 159H. Nutritional Hx/Data Height 1.78 m Height (Calculated Centimeters) 177.8 Current Weight (lbs) 62.188 kg Weight (Calculated Kilograms) 62.2 Weight (Calculated Grams) 77950.5 [place] Body Weight 150lb Weight Status Approriate GI Symptoms Cultural/Ethnic/Samaritan Belief Unknown. Usual diet at home Unknown. Skin Integrity/Comment: [place] 16. Skin intact. Estimated Nutritional Goals Calories/Kcals/Kg IBW 68.1kg, 25-30kcal/kg Kcals Calculated 1703-2043kcal Protein g/kg: IBW 1g/kg Protein Calculated 68g Fluid: ml 1703-2043ml (1ml/kcal) Nutritional Problem 1. Problem Problem No nutritional problems at this time. Intervention/Recommendation Comments 1. Continue with regular diet. Current PO intake is adequate . Expected Outcomes/Goals Expected Outcomes/Goals 1. PO intake continue to meet at least 75% of estimated nutritional needs.
--- NOTE | 2016-06-11 21:31 | Progress Notes ---
SUBJECTIVE: The patient was seen, discussed with staff, chart reviewed. Remains compliant with her medications. She has been sleeping better over the past few nights. Her appetite is still a bit on a low side. The patient continues to have episodes where she is talking to herself, having some episodes of yelling and she is still paranoid and agitated. ASSESSMENT: The patient is still in psychotic phase. PLAN: Continue medication management, continue supportive measures, continue to monitor closely. [facility]# [id number]
[2016-06-12] MEDS: Aspirin 81mg Chewable Tab PO SCH (08:53)
[2016-06-12] MEDS: Lactulose 10 Gm/15 mL 30mL UDC PO SCH ×2 (08:53→16:22)
[2016-06-12] MEDS: Multivitamin Tab PO SCH (08:53)
[2016-06-12] MEDS: Triple Antibiotic 0.94 gm Pkt TP SCH (08:54)
--- NOTE | 2016-06-12 12:37 | Internal Medicine Prog Note ---
Internal Medicine Subjective - Subjective Service Date: 06/12/16 Patient seen and examined:: with staff Patient is:: awake Per staff patient is:: no adverse event Internal Medicine Objective - Results Result Diagrams: 06/10/16 07:57 06/11/16 08:05 Recent Labs: Laboratory Last Values WBC 14.4 Th/cmm (4.8-10.8) H D 06/10/16 07:57 RBC 5.66 Mil/cmm (3.80-5.10) H 06/10/16 07:57 Hgb 17.0 gm/dL (11.7-15.5) H 06/10/16 07:57 Hct 51.2 % (35.0-45.0) H 06/10/16 07:57 MCV 90.6 fl (81-100) 06/10/16 07:57 MCH 30.0 pg (27.0-31.0) 06/10/16 07:57 MCHC Differential 33.1 pg (28.0-36.0) 06/10/16 07:57 RDW 12.3 % (11.5-20.0) 06/10/16 07:57 Plt Count 387 Th/cmm (150-400) 06/10/16 07:57 MPV 7.4 fl 06/10/16 07:57 Neutrophils % 68.4 % (40.0-80.0) 06/02/16 12:00 Lymphocytes % 23.8 % (20.0-50.0) 06/02/16 12:00 Monocytes % 4.3 % (2.0-10.0) 06/02/16 12:00 Eosinophils % 1.2 % (0.0-5.0) 06/02/16 12:00 Basophils % 2.3 % (0.0-2.0) H 06/02/16 12:00 Neutrophils (Manual) 66 % (40-80) 06/10/16 07:57 Lymphocytes 27 % (20-50) 06/10/16 07:57 Monocytes 4 % (2-10) 06/10/16 07:57 Eosinophils 3 % (0-5) 06/10/16 07:57 Platelet Estimate ADEQUATE (NORMAL) 06/10/16 07:57 Platelet Morphology NORMAL (NORMAL) 06/10/16 07:57 RBC Morph Micro Appear NORMAL (NORMAL) 06/10/16 07:57 Sodium 140 mEq/L (136-145) 06/11/16 08:05 Potassium 4.1 mEq/L (3.5-5.1) 06/11/16 08:05 Chloride 106 mEq/L (98-107) 06/11/16 08:05 Carbon Dioxide 30.4 mEq/L (21.0-31.0) 06/11/16 08:05 Anion Gap 7.7 (7.0-16.0) 06/11/16 08:05 BUN 19 mg/dL (7-25) 06/11/16 08:05 Creatinine 0.8 mg/dL (0.6-1.2) 06/11/16 08:05 Est GFR ( Amer) > 60.0 ml/min (>90) 06/11/16 08:05 Est GFR (Non-Af Amer) > 60.0 ml/min 06/11/16 08:05 BUN/Creatinine Ratio 23.8 06/11/16 08:05 Glucose 111 mg/dL (70-105) H 06/11/16 08:05 POC Glucose 159 MG/DL (70 - 105) H 06/02/16 20:07 Calcium 9.8 mg/dL (8.6-10.3) 06/11/16 08:05 Total Bilirubin 0.3 mg/dL (0.3-1.0) 06/02/16 12:00 AST 20 U/L (13-39) 06/02/16 12:00 ALT 16 U/L (7-52) 06/02/16 12:00 Alkaline Phosphatase 154 U/L (34-104) H 06/02/16 12:00 Total Protein 8.0 gm/dL (6.0-8.3) 06/02/16 12:00 Albumin 4.1 gm/dL (3.7-5.3) 06/02/16 12:00 Globulin 3.9 gm/dL 06/02/16 12:00 Albumin/Globulin Ratio 1.1 (1.0-1.8) 06/02/16 12:00 Urine Source [place] 06/02/16 13:00 Urine Color YELLOW 06/02/16 13:00 Urine Clarity CLEAR (CLEAR) 06/02/16 13:00 Urine pH 6.0 06/02/16 13:00 Ur Specific [place] 1.025 (1.005-1.030) 06/02/16 13:00 Urine Protein NEGATIVE mg/dL (NEGATIVE) 06/02/16 13:00 Urine Glucose (UA) NEGATIVE mg/dL (NEGATIVE) 06/02/16 13:00 Urine Ketones NEGATIVE mg/dL (NEGATIVE) 06/02/16 13:00 Urine Blood TRACE (NEGATIVE) 06/02/16 13:00 Urine Nitrate NEGATIVE (NEGATIVE) 06/02/16 13:00 Urine Bilirubin NEGATIVE (NEGATIVE) 06/02/16 13:00 Urine Urobilinogen 0.2 E.U./dL (0.2 - 1.0) 06/02/16 13:00 Ur Leukocyte Esterase NEGATIVE (NEGATIVE) 06/02/16 13:00 Urine RBC 2-5 /hpf (0-5) 06/02/16 13:00 Urine WBC 0-2 /hpf (0-5) 06/02/16 13:00 Ur Epithelial Cells FEW /lpf (FEW) 06/02/16 13:00 Urine Bacteria FEW /hpf (NONE SEEN) 06/02/16 13:00 - Physical Exam Vitals and I&O: Vital Signs Temp 97.8 F 06/12/16 06:45 Pulse 70 06/12/16 08:53 Resp 18 06/12/16 06:45 BP 127/80 06/12/16 08:53 Pulse Ox 94 06/12/16 06:45 Intake & Output 06/11/16 06/12/16 06/12/16 18:59 06:59 18:59 Intake Total 1000 120 Balance 1000 120 Intake: Oral 1000 120 Other: # Voids 3 3 # Bowel Movements 1 0 Active Medications: Current Medications Acetaminophen (Tylenol) 650 mg PO Q4HR PRN PRN Reason: PAIN OR TEMP >100.5 Stop: 08/01/16 17:26 Al Hydrox/Mg Hydrox/Simethicone (Maalox) 30 ml PO Q4HR PRN PRN Reason: GI DISTRESS Stop: 08/01/16 15:49 Aspirin (Aspirin Chewable) 81 mg PO DAILY BEREKET Stop: 08/02/16 08:59 Last Admin: 06/12/16 08:53 Dose: 81 mg Clonidine HCl (Catapres) 0.1 mg PO Q8H PRN PRN Reason: HTN Stop: 08/01/16 17:26 Clopidogrel Bisulfate (Plavix) 75 mg PO DAILY BEREKET Stop: 08/02/16 08:59 Last Admin: 06/12/16 08:53 Dose: 75 mg Donepezil HCl (Aricept) 5 mg PO HS BEREKET Stop: 08/01/16 20:59 Last Admin: 06/11/16 20:31 Dose: 5 mg Lactulose (Cephulac) 20 gm PO BID BEREKET Stop: 08/02/16 08:59 Last Admin: 06/12/16 08:53 Dose: 20 gm Lorazepam (Ativan) 0.5 mg PO Q4HR PRN; Protocol PRN Reason: Anxiety Stop: 07/02/16 15:49 Magnesium Oxide (Mag-Oxide) 400 mg PO DAILY BEREKET Stop: 08/02/16 08:59 Last Admin: 06/12/16 08:53 Dose: 400 mg Metoprolol Succinate (Toprol Xl) 25 mg PO DAILY BEREKET Stop: 08/02/16 08:59 Last Admin: 06/12/16 08:53 Dose: 25 mg Multivitamins/Vitamin C (Theragran) 1 tab PO DAILY BEREKET Stop: 08/02/16 08:59 Last Admin: 06/12/16 08:53 Dose: 1 tab Neomycin/Polymyxin/Bacitracin (Triple Antibiotic Pkt) 1 pkt TP DAILY BEREKET Stop: 08/02/16 08:59 Last Admin: 06/12/16 08:54 Dose: Not Given Olanzapine (Zyprexa) 5 mg PO HS BEREKET PRN Reason: Protocol Stop: 08/05/16 20:59 Last Admin: 06/11/16 20:31 Dose: 5 mg Zolpidem Tartrate (Ambien) 5 mg PO HS PRN PRN Reason: Insomnia Stop: 08/01/16 15:49 General: alert HEENT: NC/AT, PERRLA Neck: Supple Lungs: CTAB Cardiovascular: RRR, Normal S1, Normal S2, without murmur Abdomen: soft non-tender, non-distended Internal Medicine Assmt/Plan - Assessment Assessment: COPD ERYTHROCYTOSIS STROKE GASTRITIS CONTRACTURES HYPERGLYCEMIA HTN ASTHMA - Plan Plan: BRONCHODILATORS NEEDED MONITOR GLUCOSE PPI CPM Nutritional Asmnt/Malnutr-PDOC - Dietary Evaluation Malnutrition Findings (Please click <Entered> for more info): Nutritional Asmnt/Malnutrition Start: 06/09/16 16: 21 Text: Status: Complete Freq: Document 06/09/16 16:21 GSUN (Rec: 06/09/16 16:30 GSUN [email or web address]) Nutritional Asmnt/Malnutrition Patient General Information Nutritional Screening Moderate Risk Screening Diagnosis Agitation Pertinent Medical Hx/Surgical Hx Stroke, gastritis, generalized contractures, COPD, smokes, unspecified psychotic disorder Subjective Information 60 year old female from SNF. RD attempted visit twice, first time pt was asleep, second time pt remained silent . Per nursing staff, no nutritional concerns at this time. PO intake 75-100% since adm, meeting nutritional needs . Mild wasting to the temporals noted. Current Diet Order/ Nutrition Support Regular Pertinent Medications Maalox, Mag-Oxide, Theragran Pertinent Labs Reviewed. Glucose 159H. Nutritional Hx/Data Height 5 ft 10 in Height (Calculated Centimeters) 177.8 Current Weight (lbs) 137 lb 1.6 oz Weight (Calculated Kilograms) 62.2 Weight (Calculated Grams) 31861.5 [place] Body Weight 150lb Weight Status Approriate GI Symptoms Cultural/Ethnic/[employer]ar[employer] Belief Unknown. Usual diet at home Unknown. Skin Integrity/Comment: [place] 16. Skin intact. Estimated Nutritional Goals Calories/Kcals/Kg IBW 68.1kg, 25-30kcal/kg Kcals Calculated 1703-2043kcal Protein g/kg: IBW 1g/kg Protein Calculated 68g Fluid: ml 1703-2043ml (1ml/kcal) Nutritional Problem 1. Problem Problem No nutritional problems at this time. Intervention/Recommendation Comments 1. Continue with regular diet. Current PO intake is adequate . Expected Outcomes/Goals Expected Outcomes/Goals 1. PO intake continue to meet at least 75% of estimated nutritional needs.
--- NOTE | 2016-06-12 22:35 | Progress Notes ---
SUBJECTIVE: I met this patient, discussed with staff, chart is reviewed. Still anxious, irritable, still confused, forgetful. Insight remains very limited. Judgment is impaired. The patient is also forgetful and then still talking to herself. ASSESSMENT: The patient is still in psychotic phase, also has dementia. PLAN: We will increase the Aricept to 10 mg daily, continue Zyprexa 5 mg p.o. at bedtime, monitor closely. [facility]# [id number]
[2016-06-13] MEDS: Multivitamin Tab PO SCH (09:23)
[2016-06-13] MEDS: Aspirin 81mg Chewable Tab PO SCH (09:23)
[2016-06-13] MEDS: Lactulose 10 Gm/15 mL 30mL UDC PO SCH ×2 (09:24→17:21)
--- NOTE | 2016-06-13 12:21 | Internal Medicine Prog Note ---
Internal Medicine Subjective - Subjective Service Date: 06/13/16 Patient seen and examined:: with staff Patient is:: awake Per staff patient is:: no adverse event Internal Medicine Objective - Results Result Diagrams: 06/10/16 07:57 06/11/16 08:05 Recent Labs: Laboratory Last Values WBC 14.4 Th/cmm (4.8-10.8) H D 06/10/16 07:57 RBC 5.66 Mil/cmm (3.80-5.10) H 06/10/16 07:57 Hgb 17.0 gm/dL (11.7-15.5) H 06/10/16 07:57 Hct 51.2 % (35.0-45.0) H 06/10/16 07:57 MCV 90.6 fl (81-100) 06/10/16 07:57 MCH 30.0 pg (27.0-31.0) 06/10/16 07:57 MCHC Differential 33.1 pg (28.0-36.0) 06/10/16 07:57 RDW 12.3 % (11.5-20.0) 06/10/16 07:57 Plt Count 387 Th/cmm (150-400) 06/10/16 07:57 MPV 7.4 fl 06/10/16 07:57 Neutrophils % 68.4 % (40.0-80.0) 06/02/16 12:00 Lymphocytes % 23.8 % (20.0-50.0) 06/02/16 12:00 Monocytes % 4.3 % (2.0-10.0) 06/02/16 12:00 Eosinophils % 1.2 % (0.0-5.0) 06/02/16 12:00 Basophils % 2.3 % (0.0-2.0) H 06/02/16 12:00 Neutrophils (Manual) 66 % (40-80) 06/10/16 07:57 Lymphocytes 27 % (20-50) 06/10/16 07:57 Monocytes 4 % (2-10) 06/10/16 07:57 Eosinophils 3 % (0-5) 06/10/16 07:57 Platelet Estimate ADEQUATE (NORMAL) 06/10/16 07:57 Platelet Morphology NORMAL (NORMAL) 06/10/16 07:57 RBC Morph Micro Appear NORMAL (NORMAL) 06/10/16 07:57 Sodium 140 mEq/L (136-145) 06/11/16 08:05 Potassium 4.1 mEq/L (3.5-5.1) 06/11/16 08:05 Chloride 106 mEq/L (98-107) 06/11/16 08:05 Carbon Dioxide 30.4 mEq/L (21.0-31.0) 06/11/16 08:05 Anion Gap 7.7 (7.0-16.0) 06/11/16 08:05 BUN 19 mg/dL (7-25) 06/11/16 08:05 Creatinine 0.8 mg/dL (0.6-1.2) 06/11/16 08:05 Est GFR ( Amer) > 60.0 ml/min (>90) 06/11/16 08:05 Est GFR (Non-Af Amer) > 60.0 ml/min 06/11/16 08:05 BUN/Creatinine Ratio 23.8 06/11/16 08:05 Glucose 111 mg/dL (70-105) H 06/11/16 08:05 POC Glucose 159 MG/DL (70 - 105) H 06/02/16 20:07 Calcium 9.8 mg/dL (8.6-10.3) 06/11/16 08:05 Total Bilirubin 0.3 mg/dL (0.3-1.0) 06/02/16 12:00 AST 20 U/L (13-39) 06/02/16 12:00 ALT 16 U/L (7-52) 06/02/16 12:00 Alkaline Phosphatase 154 U/L (34-104) H 06/02/16 12:00 Total Protein 8.0 gm/dL (6.0-8.3) 06/02/16 12:00 Albumin 4.1 gm/dL (3.7-5.3) 06/02/16 12:00 Globulin 3.9 gm/dL 06/02/16 12:00 Albumin/Globulin Ratio 1.1 (1.0-1.8) 06/02/16 12:00 Urine Source [place]RE [place] 06/02/16 13:00 Urine Color YELLOW 06/02/16 13:00 Urine Clarity CLEAR (CLEAR) 06/02/16 13:00 Urine pH 6.0 06/02/16 13:00 Ur Specific [place] 1.025 (1.005-1.030) 06/02/16 13:00 Urine Protein NEGATIVE mg/dL (NEGATIVE) 06/02/16 13:00 Urine Glucose (UA) NEGATIVE mg/dL (NEGATIVE) 06/02/16 13:00 Urine Ketones NEGATIVE mg/dL (NEGATIVE) 06/02/16 13:00 Urine Blood TRACE (NEGATIVE) 06/02/16 13:00 Urine Nitrate NEGATIVE (NEGATIVE) 06/02/16 13:00 Urine Bilirubin NEGATIVE (NEGATIVE) 06/02/16 13:00 Urine Urobilinogen 0.2 E.U./dL (0.2 - 1.0) 06/02/16 13:00 Ur Leukocyte Esterase NEGATIVE (NEGATIVE) 06/02/16 13:00 Urine RBC 2-5 /hpf (0-5) 06/02/16 13:00 Urine WBC 0-2 /hpf (0-5) 06/02/16 13:00 Ur Epithelial Cells FEW /lpf (FEW) 06/02/16 13:00 Urine Bacteria FEW /hpf (NONE SEEN) 06/02/16 13:00 - Physical Exam Vitals and I&O: Vital Signs Temp 98.3 F 06/13/16 06:18 Pulse 69 06/13/16 09:23 Resp 69 06/13/16 11:56 BP 119/76 06/13/16 09:23 Pulse Ox 98 06/13/16 06:18 Intake & Output 06/12/16 06/13/16 06/13/16 18:59 06:59 18:59 Intake Total 2400 120 Balance 2400 120 Intake: Oral 2400 120 Other: # Voids 4 3 # Bowel Movements 0 Active Medications: Current Medications Acetaminophen (Tylenol) 650 mg PO Q4HR PRN PRN Reason: PAIN OR TEMP >100.5 Stop: 08/01/16 17:26 Al Hydrox/Mg Hydrox/Simethicone (Maalox) 30 ml PO Q4HR PRN PRN Reason: GI DISTRESS Stop: 08/01/16 15:49 Aspirin (Aspirin Chewable) 81 mg PO DAILY [facility] Stop: 08/02/16 08:59 Last Admin: 06/13/16 09:23 Dose: 81 mg Clonidine HCl (Catapres) 0.1 mg PO Q8H PRN PRN Reason: HTN Stop: 08/01/16 17:26 Clopidogrel Bisulfate (Plavix) 75 mg PO DAILY [facility] Stop: 08/02/16 08:59 Last Admin: 06/13/16 09:25 Dose: 75 mg Donepezil HCl (Aricept) 10 mg PO HS [facility] Stop: 08/11/16 20:59 Last Admin: 06/12/16 21:14 Dose: 10 mg Lactulose (Cephulac) 20 gm PO BID [facility] Stop: 08/02/16 08:59 Last Admin: 06/13/16 09:24 Dose: 20 gm Lorazepam (Ativan) 0.5 mg PO Q4HR PRN; Protocol PRN Reason: Anxiety Stop: 07/02/16 15:49 Magnesium Oxide (Mag-Oxide) 400 mg PO DAILY [facility] Stop: 08/02/16 08:59 Last Admin: 06/12/16 08:53 Dose: 400 mg Metoprolol Succinate (Toprol Xl) 25 mg PO DAILY [facility] Stop: 08/02/16 08:59 Last Admin: 06/13/16 09:23 Dose: 25 mg Multivitamins/Vitamin C (Theragran) 1 tab PO DAILY [facility] Stop: 08/02/16 08:59 Last Admin: 06/13/16 09:23 Dose: 1 tab Neomycin/Polymyxin/Bacitracin (Triple Antibiotic Pkt) 1 pkt TP DAILY [facility] Stop: 08/02/16 08:59 Last Admin: 06/12/16 08:54 Dose: Not Given Olanzapine (Zyprexa) 5 mg PO HS [facility] PRN Reason: Protocol Stop: 08/05/16 20:59 Last Admin: 06/12/16 21:14 Dose: 5 mg Zolpidem Tartrate (Ambien) 5 mg PO HS PRN PRN Reason: Insomnia Stop: 08/01/16 15:49 General: alert HEENT: NC/AT, PERRLA Neck: Supple Lungs: CTAB Cardiovascular: RRR, Normal S1, Normal S2, without murmur Abdomen: soft non-tender, non-distended Extremities: clear Internal Medicine Assmt/Plan - Assessment Assessment: COPD ERYTHROCYTOSIS STROKE GASTRITIS CONTRACTURES HYPERGLYCEMIA HTN ASTHMA - Plan Plan: BRONCHODILATORS NEEDED MONITOR GLUCOSE PPI CPM Nutritional Asmnt/Malnutr-PDOC - Dietary Evaluation Malnutrition Findings (Please click <Entered> for more info): Nutritional Asmnt/Malnutrition Start: 06/09/16 16: 21 Text: Status: Complete Freq: Document 06/09/16 16:21 GSUN (Rec: 06/09/16 16:30 GSTINO [email or web address]) Nutritional Asmnt/Malnutrition Patient General Information Nutritional Screening Moderate Risk Screening Diagnosis Agitation Pertinent Medical Hx/Surgical Hx Stroke, gastritis, generalized contractures, COPD, smokes, unspecified psychotic disorder Subjective Information 60 year old female from SNF. RD attempted visit twice, first time pt was asleep, second time pt remained silent . Per nursing staff, no nutritional concerns at this time. PO intake 75-100% since adm, meeting nutritional needs . Mild wasting to the temporals noted. Current Diet Order/ Nutrition Support Regular Pertinent Medications Maalox, Mag-Oxide, Theragran Pertinent Labs Reviewed. Glucose 159H. Nutritional Hx/Data Height 5 ft 10 in Height (Calculated Centimeters) 177.8 Current Weight (lbs) 137 lb 1.6 oz Weight (Calculated Kilograms) 62.2 Weight (Calculated Grams) 21197.5 [place] Body Weight 150lb Weight Status Approriate GI Symptoms Cultural/Ethnic/Judaism Belief Unknown. Usual diet at home Unknown. Skin Integrity/Comment: Kle[place] 16. Skin intact. Estimated Nutritional Goals Calories/Kcals/Kg IBW 68.1kg, 25-30kcal/kg Kcals Calculated 1703-2043kcal Protein g/kg: IBW 1g/kg Protein Calculated 68g Fluid: ml 1703-2043ml (1ml/kcal) Nutritional Problem 1. Problem Problem No nutritional problems at this time. Intervention/Recommendation Comments 1. Continue with regular diet. Current PO intake is adequate . Expected Outcomes/Goals Expected Outcomes/Goals 1. PO intake continue to meet at least 75% of estimated nutritional needs.
[2016-06-13] MEDS: Triple Antibiotic 0.94 gm Pkt TP SCH (17:21)
--- NOTE | 2016-06-14 03:23 | Progress Notes ---
SUBJECTIVE: I met this patient, discussed with staff, chart reviewed. Still restless, anxious, guarded, still talking to herself some anger outbursts, but much less compared to time of admission. The patient is compliant with her medications. Sleep has been fair. Anxiety is decreasing. Insight continues to be poor. Thought process is fragmented. ASSESSMENT: The patient continues to be in psychotic phase. PLAN: We will continue hospitalization. Continue stabilization. Continue supportive measures. JOB# [id number]
[2016-06-14] MEDS: Lactulose 10 Gm/15 mL 30mL UDC PO SCH ×2 (08:50→17:41)
[2016-06-14] MEDS: Triple Antibiotic 0.94 gm Pkt TP SCH (08:51)
[2016-06-14] MEDS: Aspirin 81mg Chewable Tab PO SCH (08:51)
[2016-06-14] MEDS: Multivitamin Tab PO SCH (08:51)
--- NOTE | 2016-06-14 10:43 | Internal Medicine Prog Note ---
Internal Medicine Subjective - Subjective Service Date: 06/14/16 Patient seen and examined:: with staff Patient is:: awake Per staff patient is:: no adverse event Internal Medicine Objective - Results Result Diagrams: 06/10/16 07:57 06/11/16 08:05 Recent Labs: Laboratory Last Values WBC 14.4 Th/cmm (4.8-10.8) H D 06/10/16 07:57 RBC 5.66 Mil/cmm (3.80-5.10) H 06/10/16 07:57 Hgb 17.0 gm/dL (11.7-15.5) H 06/10/16 07:57 Hct 51.2 % (35.0-45.0) H 06/10/16 07:57 MCV 90.6 fl (81-100) 06/10/16 07:57 MCH 30.0 pg (27.0-31.0) 06/10/16 07:57 MCHC Differential 33.1 pg (28.0-36.0) 06/10/16 07:57 RDW 12.3 % (11.5-20.0) 06/10/16 07:57 Plt Count 387 Th/cmm (150-400) 06/10/16 07:57 MPV 7.4 fl 06/10/16 07:57 Neutrophils % 68.4 % (40.0-80.0) 06/02/16 12:00 Lymphocytes % 23.8 % (20.0-50.0) 06/02/16 12:00 Monocytes % 4.3 % (2.0-10.0) 06/02/16 12:00 Eosinophils % 1.2 % (0.0-5.0) 06/02/16 12:00 Basophils % 2.3 % (0.0-2.0) H 06/02/16 12:00 Neutrophils (Manual) 66 % (40-80) 06/10/16 07:57 Lymphocytes 27 % (20-50) 06/10/16 07:57 Monocytes 4 % (2-10) 06/10/16 07:57 Eosinophils 3 % (0-5) 06/10/16 07:57 Platelet Estimate ADEQUATE (NORMAL) 06/10/16 07:57 Platelet Morphology NORMAL (NORMAL) 06/10/16 07:57 RBC Morph Micro Appear NORMAL (NORMAL) 06/10/16 07:57 Sodium 140 mEq/L (136-145) 06/11/16 08:05 Potassium 4.1 mEq/L (3.5-5.1) 06/11/16 08:05 Chloride 106 mEq/L (98-107) 06/11/16 08:05 Carbon Dioxide 30.4 mEq/L (21.0-31.0) 06/11/16 08:05 Anion Gap 7.7 (7.0-16.0) 06/11/16 08:05 BUN 19 mg/dL (7-25) 06/11/16 08:05 Creatinine 0.8 mg/dL (0.6-1.2) 06/11/16 08:05 Est GFR ( Amer) > 60.0 ml/min (>90) 06/11/16 08:05 Est GFR (Non-Af Amer) > 60.0 ml/min 06/11/16 08:05 BUN/Creatinine Ratio 23.8 06/11/16 08:05 Glucose 111 mg/dL (70-105) H 06/11/16 08:05 POC Glucose 159 MG/DL (70 - 105) H 06/02/16 20:07 Calcium 9.8 mg/dL (8.6-10.3) 06/11/16 08:05 Total Bilirubin 0.3 mg/dL (0.3-1.0) 06/02/16 12:00 AST 20 U/L (13-39) 06/02/16 12:00 ALT 16 U/L (7-52) 06/02/16 12:00 Alkaline Phosphatase 154 U/L (34-104) H 06/02/16 12:00 Total Protein 8.0 gm/dL (6.0-8.3) 06/02/16 12:00 Albumin 4.1 gm/dL (3.7-5.3) 06/02/16 12:00 Globulin 3.9 gm/dL 06/02/16 12:00 Albumin/Globulin Ratio 1.1 (1.0-1.8) 06/02/16 12:00 Urine Source [place] 06/02/16 13:00 Urine Color YELLOW 06/02/16 13:00 Urine Clarity CLEAR (CLEAR) 06/02/16 13:00 Urine pH 6.0 06/02/16 13:00 Ur Specific [place] 1.025 (1.005-1.030) 06/02/16 13:00 Urine Protein NEGATIVE mg/dL (NEGATIVE) 06/02/16 13:00 Urine Glucose (UA) NEGATIVE mg/dL (NEGATIVE) 06/02/16 13:00 Urine Ketones NEGATIVE mg/dL (NEGATIVE) 06/02/16 13:00 Urine Blood TRACE (NEGATIVE) 06/02/16 13:00 Urine Nitrate NEGATIVE (NEGATIVE) 06/02/16 13:00 Urine Bilirubin NEGATIVE (NEGATIVE) 06/02/16 13:00 Urine Urobilinogen 0.2 E.U./dL (0.2 - 1.0) 06/02/16 13:00 Ur Leukocyte Esterase NEGATIVE (NEGATIVE) 06/02/16 13:00 Urine RBC 2-5 /hpf (0-5) 06/02/16 13:00 Urine WBC 0-2 /hpf (0-5) 06/02/16 13:00 Ur Epithelial Cells FEW /lpf (FEW) 06/02/16 13:00 Urine Bacteria FEW /hpf (NONE SEEN) 06/02/16 13:00 - Physical Exam Vitals and I&O: Vital Signs Temp 98.1 F 06/14/16 06:13 Pulse 69 06/14/16 08:51 Resp 19 06/14/16 06:13 BP 115/76 06/14/16 08:51 Pulse Ox 94 06/14/16 06:13 Intake & Output 06/13/16 06/14/16 06/14/16 18:59 06:59 18:59 Intake Total 900 Balance 900 Intake: Oral 900 Other: # Voids 4 2 # Bowel Movements 1 1 Active Medications: Current Medications Acetaminophen (Tylenol) 650 mg PO Q4HR PRN PRN Reason: PAIN OR TEMP >100.5 Stop: 08/01/16 17:26 Al Hydrox/Mg Hydrox/Simethicone (Maalox) 30 ml PO Q4HR PRN PRN Reason: GI DISTRESS Stop: 08/01/16 15:49 Aspirin (Aspirin Chewable) 81 mg PO DAILY [facility] Stop: 08/02/16 08:59 Last Admin: 06/14/16 08:51 Dose: 81 mg Clonidine HCl (Catapres) 0.1 mg PO Q8H PRN PRN Reason: HTN Stop: 08/01/16 17:26 Clopidogrel Bisulfate (Plavix) 75 mg PO DAILY [facility] Stop: 08/02/16 08:59 Last Admin: 06/14/16 08:51 Dose: 75 mg Donepezil HCl (Aricept) 10 mg PO HS [facility] Stop: 08/11/16 20:59 Last Admin: 06/13/16 20:40 Dose: 10 mg Lactulose (Cephulac) 20 gm PO BID [facility] Stop: 08/02/16 08:59 Last Admin: 06/14/16 08:50 Dose: 20 gm Lorazepam (Ativan) 0.5 mg PO Q4HR PRN; Protocol PRN Reason: Anxiety Stop: 07/02/16 15:49 Magnesium Oxide (Mag-Oxide) 400 mg PO DAILY [facility] Stop: 08/02/16 08:59 Last Admin: 06/14/16 08:51 Dose: 400 mg Metoprolol Succinate (Toprol Xl) 25 mg PO DAILY [facility] Stop: 08/02/16 08:59 Last Admin: 06/14/16 08:51 Dose: 25 mg Multivitamins/Vitamin C (Theragran) 1 tab PO DAILY [facility] Stop: 08/02/16 08:59 Last Admin: 06/14/16 08:51 Dose: 1 tab Neomycin/Polymyxin/Bacitracin (Triple Antibiotic Pkt) 1 pkt TP DAILY [facility] Stop: 08/02/16 08:59 Last Admin: 06/14/16 08:51 Dose: Not Given Olanzapine (Zyprexa) 5 mg PO HS [facility] PRN Reason: Protocol Stop: 08/05/16 20:59 Last Admin: 06/13/16 20:40 Dose: 5 mg Zolpidem Tartrate (Ambien) 5 mg PO HS PRN PRN Reason: Insomnia Stop: 08/01/16 15:49 General: alert HEENT: NC/AT Neck: Supple Lungs: CTAB Cardiovascular: RRR, Normal S1, Normal S2, without murmur Abdomen: soft non-tender, non-distended, positive bowel sound Neurological: no change Internal Medicine Assmt/Plan - Assessment Assessment: COPD ERYTHROCYTOSIS STROKE GASTRITIS CONTRACTURES HYPERGLYCEMIA HTN ASTHMA - Plan Plan: BRONCHODILATORS NEEDED MONITOR GLUCOSE PPI CPM Nutritional Asmnt/Malnutr-PDOC - Dietary Evaluation Malnutrition Findings (Please click <Entered> for more info): Nutritional Asmnt/Malnutrition Start: 06/09/16 16: 21 Text: Status: Complete Freq: Document 06/09/16 16:21 GSTINO (Rec: 06/09/16 16:30 GSUN [email or web address]) Nutritional Asmnt/Malnutrition Patient General Information Nutritional Screening Moderate Risk Screening Diagnosis Agitation Pertinent Medical Hx/Surgical Hx Stroke, gastritis, generalized contractures, COPD, smokes, unspecified psychotic disorder Subjective Information 60 year old female from SNF. RD attempted visit twice, first time pt was asleep, second time pt remained silent . Per nursing staff, no nutritional concerns at this time. PO intake 75-100% since adm, meeting nutritional needs . Mild wasting to the temporals noted. Current Diet Order/ Nutrition Support Regular Pertinent Medications Maalox, Mag-Oxide, Theragran Pertinent Labs Reviewed. Glucose 159H. Nutritional Hx/Data Height 5 ft 10 in Height (Calculated Centimeters) 177.8 Current Weight (lbs) 137 lb 1.6 oz Weight (Calculated Kilograms) 62.2 Weight (Calculated Grams) 53023.5 [place] Body Weight 150lb Weight Status Approriate GI Symptoms Cultural/Ethnic/Rastafarian Belief Unknown. Usual diet at home Unknown. Skin Integrity/Comment: [place] 16. Skin intact. Estimated Nutritional Goals Calories/Kcals/Kg IBW 68.1kg, 25-30kcal/kg Kcals Calculated 1703-2043kcal Protein g/kg: IBW 1g/kg Protein Calculated 68g Fluid: ml 1703-2043ml (1ml/kcal) Nutritional Problem 1. Problem Problem No nutritional problems at this time. Intervention/Recommendation Comments 1. Continue with regular diet. Current PO intake is adequate . Expected Outcomes/Goals Expected Outcomes/Goals 1. PO intake continue to meet at least 75% of estimated nutritional needs.
--- NOTE | 2016-06-14 20:52 | Progress Notes ---
SUBJECTIVE: The patient was seen, discussed with staff, chart is reviewed. Still anxious, guarded, still irritable episodes, talking to herself, but her anger outbursts have decreased dramatically compared at the time of admission and agitation is decreasing and she is easier to redirect. The patient's insight is still limited, judgment remains impaired. ASSESSMENT: The patient is stabilizing in this setting. PLAN: We will continue hospitalization, continue supportive measures, continue medication management, consider discharge over next 1-2 days if further improvement is noted. [facility]# [id number]
[2016-06-15] MEDS: Multivitamin Tab PO SCH (08:12)
[2016-06-15] MEDS: Aspirin 81mg Chewable Tab PO SCH (08:12)
[2016-06-15] MEDS: Lactulose 10 Gm/15 mL 30mL UDC PO SCH ×2 (08:12→16:56)
[2016-06-15] MEDS: Triple Antibiotic 0.94 gm Pkt TP SCH (08:13)
--- NOTE | 2016-06-15 11:16 | Internal Medicine Prog Note ---
Internal Medicine Subjective - Subjective Service Date: 06/15/16 Patient seen and examined:: with staff Patient is:: awake Per staff patient is:: no adverse event Internal Medicine Objective - Results Result Diagrams: 06/10/16 07:57 06/11/16 08:05 Recent Labs: Laboratory Last Values WBC 14.4 Th/cmm (4.8-10.8) H D 06/10/16 07:57 RBC 5.66 Mil/cmm (3.80-5.10) H 06/10/16 07:57 Hgb 17.0 gm/dL (11.7-15.5) H 06/10/16 07:57 Hct 51.2 % (35.0-45.0) H 06/10/16 07:57 MCV 90.6 fl (81-100) 06/10/16 07:57 MCH 30.0 pg (27.0-31.0) 06/10/16 07:57 MCHC Differential 33.1 pg (28.0-36.0) 06/10/16 07:57 RDW 12.3 % (11.5-20.0) 06/10/16 07:57 Plt Count 387 Th/cmm (150-400) 06/10/16 07:57 MPV 7.4 fl 06/10/16 07:57 Neutrophils % 68.4 % (40.0-80.0) 06/02/16 12:00 Lymphocytes % 23.8 % (20.0-50.0) 06/02/16 12:00 Monocytes % 4.3 % (2.0-10.0) 06/02/16 12:00 Eosinophils % 1.2 % (0.0-5.0) 06/02/16 12:00 Basophils % 2.3 % (0.0-2.0) H 06/02/16 12:00 Neutrophils (Manual) 66 % (40-80) 06/10/16 07:57 Lymphocytes 27 % (20-50) 06/10/16 07:57 Monocytes 4 % (2-10) 06/10/16 07:57 Eosinophils 3 % (0-5) 06/10/16 07:57 Platelet Estimate ADEQUATE (NORMAL) 06/10/16 07:57 Platelet Morphology NORMAL (NORMAL) 06/10/16 07:57 RBC Morph Micro Appear NORMAL (NORMAL) 06/10/16 07:57 Sodium 140 mEq/L (136-145) 06/11/16 08:05 Potassium 4.1 mEq/L (3.5-5.1) 06/11/16 08:05 Chloride 106 mEq/L (98-107) 06/11/16 08:05 Carbon Dioxide 30.4 mEq/L (21.0-31.0) 06/11/16 08:05 Anion Gap 7.7 (7.0-16.0) 06/11/16 08:05 BUN 19 mg/dL (7-25) 06/11/16 08:05 Creatinine 0.8 mg/dL (0.6-1.2) 06/11/16 08:05 Est GFR ( Amer) > 60.0 ml/min (>90) 06/11/16 08:05 Est GFR (Non-Af Amer) > 60.0 ml/min 06/11/16 08:05 BUN/Creatinine Ratio 23.8 06/11/16 08:05 Glucose 111 mg/dL (70-105) H 06/11/16 08:05 POC Glucose 159 MG/DL (70 - 105) H 06/02/16 20:07 Calcium 9.8 mg/dL (8.6-10.3) 06/11/16 08:05 Total Bilirubin 0.3 mg/dL (0.3-1.0) 06/02/16 12:00 AST 20 U/L (13-39) 06/02/16 12:00 ALT 16 U/L (7-52) 06/02/16 12:00 Alkaline Phosphatase 154 U/L (34-104) H 06/02/16 12:00 Total Protein 8.0 gm/dL (6.0-8.3) 06/02/16 12:00 Albumin 4.1 gm/dL (3.7-5.3) 06/02/16 12:00 Globulin 3.9 gm/dL 06/02/16 12:00 Albumin/Globulin Ratio 1.1 (1.0-1.8) 06/02/16 12:00 Urine Source [place] 06/02/16 13:00 Urine Color YELLOW 06/02/16 13:00 Urine Clarity CLEAR (CLEAR) 06/02/16 13:00 Urine pH 6.0 06/02/16 13:00 Ur Specific [place] 1.025 (1.005-1.030) 06/02/16 13:00 Urine Protein NEGATIVE mg/dL (NEGATIVE) 06/02/16 13:00 Urine Glucose (UA) NEGATIVE mg/dL (NEGATIVE) 06/02/16 13:00 Urine Ketones NEGATIVE mg/dL (NEGATIVE) 06/02/16 13:00 Urine Blood TRACE (NEGATIVE) 06/02/16 13:00 Urine Nitrate NEGATIVE (NEGATIVE) 06/02/16 13:00 Urine Bilirubin NEGATIVE (NEGATIVE) 06/02/16 13:00 Urine Urobilinogen 0.2 E.U./dL (0.2 - 1.0) 06/02/16 13:00 Ur Leukocyte Esterase NEGATIVE (NEGATIVE) 06/02/16 13:00 Urine RBC 2-5 /hpf (0-5) 06/02/16 13:00 Urine WBC 0-2 /hpf (0-5) 06/02/16 13:00 Ur Epithelial Cells FEW /lpf (FEW) 06/02/16 13:00 Urine Bacteria FEW /hpf (NONE SEEN) 06/02/16 13:00 - Physical Exam Vitals and I&O: Vital Signs Temp 98.0 F 06/14/16 14:00 Pulse 71 06/15/16 08:11 Resp 18 06/14/16 20:00 BP 119/74 06/15/16 08:11 Pulse Ox 96 06/14/16 14:00 Intake & Output 06/14/16 06/15/16 06/15/16 18:59 06:59 18:59 Intake Total 600 Balance 600 Intake: Oral 600 Other: # Voids 3 # Bowel Movements 0 Active Medications: Current Medications Acetaminophen (Tylenol) 650 mg PO Q4HR PRN PRN Reason: PAIN OR TEMP >100.5 Stop: 08/01/16 17:26 Al Hydrox/Mg Hydrox/Simethicone (Maalox) 30 ml PO Q4HR PRN PRN Reason: GI DISTRESS Stop: 08/01/16 15:49 Aspirin (Aspirin Chewable) 81 mg PO DAILY [facility] Stop: 08/02/16 08:59 Last Admin: 06/15/16 08:12 Dose: 81 mg Clonidine HCl (Catapres) 0.1 mg PO Q8H PRN PRN Reason: HTN Stop: 08/01/16 17:26 Clopidogrel Bisulfate (Plavix) 75 mg PO DAILY [facility] Stop: 08/02/16 08:59 Last Admin: 06/15/16 08:13 Dose: 75 mg Donepezil HCl (Aricept) 10 mg PO HS [facility] Stop: 08/11/16 20:59 Last Admin: 06/14/16 20:45 Dose: 10 mg Lactulose (Cephulac) 20 gm PO BID [facility] Stop: 08/02/16 08:59 Last Admin: 06/15/16 08:12 Dose: 20 gm Lorazepam (Ativan) 0.5 mg PO Q4HR PRN; Protocol PRN Reason: Anxiety Stop: 07/02/16 15:49 Magnesium Oxide (Mag-Oxide) 400 mg PO DAILY [facility] Stop: 08/02/16 08:59 Last Admin: 06/15/16 08:12 Dose: 400 mg Metoprolol Succinate (Toprol Xl) 25 mg PO DAILY [facility] Stop: 08/02/16 08:59 Last Admin: 06/15/16 08:11 Dose: Not Given Multivitamins/Vitamin C (Theragran) 1 tab PO DAILY [facility] Stop: 08/02/16 08:59 Last Admin: 06/15/16 08:12 Dose: 1 tab Neomycin/Polymyxin/Bacitracin (Triple Antibiotic Pkt) 1 pkt TP DAILY [facility] Stop: 08/02/16 08:59 Last Admin: 06/15/16 08:13 Dose: Not Given Olanzapine (Zyprexa) 5 mg PO HS [facility]EREKET PRN Reason: Protocol Stop: 08/05/16 20:59 Last Admin: 06/14/16 20:45 Dose: 5 mg Zolpidem Tartrate (Ambien) 5 mg PO HS PRN PRN Reason: Insomnia Stop: 08/01/16 15:49 General: alert HEENT: NC/AT Neck: Supple Lungs: CTAB Cardiovascular: RRR, Normal S1, Normal S2, without murmur Abdomen: soft non-tender, non-distended, positive bowel sound Extremities: clear Neurological: no change Internal Medicine Assmt/Plan - Assessment Assessment: COPD ERYTHROCYTOSIS STROKE GASTRITIS CONTRACTURES HYPERGLYCEMIA HTN ASTHMA - Plan Plan: BRONCHODILATORS NEEDED MONITOR GLUCOSE PPI CPM Nutritional Asmnt/Malnutr-PDOC - Dietary Evaluation Malnutrition Findings (Please click <Entered> for more info): Nutritional Asmnt/Malnutrition Start: 06/09/16 16: 21 Text: Status: Complete Freq: Document 06/09/16 16:21 GSTINO (Rec: 06/09/16 16:30 GSTINO [id number]) Nutritional Asmnt/Malnutrition Patient General Information Nutritional Screening Moderate Risk Screening Diagnosis Agitation Pertinent Medical Hx/Surgical Hx Stroke, gastritis, generalized contractures, COPD, smokes, unspecified psychotic disorder Subjective Information 60 year old female from SNF. RD attempted visit twice, first time pt was asleep, second time pt remained silent . Per nursing staff, no nutritional concerns at this time. PO intake 75-100% since adm, meeting nutritional needs . Mild wasting to the temporals noted. Current Diet Order/ Nutrition Support Regular Pertinent Medications Maalox, Mag-Oxide, Theragran Pertinent Labs Reviewed. Glucose 159H. Nutritional Hx/Data Height 5 ft 10 in Height (Calculated Centimeters) 177.8 Current Weight (lbs) 137 lb 1.6 oz Weight (Calculated Kilograms) 62.2 Weight (Calculated Grams) 37706.5 [place] Body Weight 150lb Weight Status Approriate GI Symptoms Cultural/Ethnic/[employer] Belief Unknown. Usual diet at home Unknown. Skin Integrity/Comment: [place] 16. Skin intact. Estimated Nutritional Goals Calories/Kcals/Kg IBW 68.1kg, 25-30kcal/kg Kcals Calculated 1703-2043kcal Protein g/kg: IBW 1g/kg Protein Calculated 68g Fluid: ml 1703-2043ml (1ml/kcal) Nutritional Problem 1. Problem Problem No nutritional problems at this time. Intervention/Recommendation Comments 1. Continue with regular diet. Current PO intake is adequate . Expected Outcomes/Goals Expected Outcomes/Goals 1. PO intake continue to meet at least 75% of estimated nutritional needs.
--- NOTE | 2016-06-16 00:50 | Progress Notes ---
SUBJECTIVE: The patient was seen, discussed with staff. Still with some hallucinations, episodes of talking to herself, but her anger outbursts subsided down and she is eating better. Her sleep is fair. The patient continues to require assistance with her ADLs and she continues to lack ability to care for herself. ASSESSMENT: Psychosis is slowly decreasing and condition is slowly stabilizing. PLAN: We will continue hospitalization, continue stabilization, continue supportive measures. [facility]# [id number]
[2016-06-16] MEDS: Triple Antibiotic 0.94 gm Pkt TP SCH (08:06)
[2016-06-16] MEDS: Aspirin 81mg Chewable Tab PO SCH (08:06)
[2016-06-16] MEDS: Multivitamin Tab PO SCH (08:06)
[2016-06-16] MEDS: Lactulose 10 Gm/15 mL 30mL UDC PO SCH ×2 (08:07→16:52)
--- NOTE | 2016-06-16 12:40 | Internal Medicine Prog Note ---
Internal Medicine Subjective - Subjective Patient seen and examined:: with staff, chart reviewed Patient is:: awake, verbal, interactive Per staff patient is:: no adverse event, noncompliant, confused Internal Medicine Objective - Results Result Diagrams: 06/10/16 07:57 06/11/16 08:05 Recent Labs: Laboratory Last Values WBC 14.4 Th/cmm (4.8-10.8) H D 06/10/16 07:57 RBC 5.66 Mil/cmm (3.80-5.10) H 06/10/16 07:57 Hgb 17.0 gm/dL (11.7-15.5) H 06/10/16 07:57 Hct 51.2 % (35.0-45.0) H 06/10/16 07:57 MCV 90.6 fl (81-100) 06/10/16 07:57 MCH 30.0 pg (27.0-31.0) 06/10/16 07:57 MCHC Differential 33.1 pg (28.0-36.0) 06/10/16 07:57 RDW 12.3 % (11.5-20.0) 06/10/16 07:57 Plt Count 387 Th/cmm (150-400) 06/10/16 07:57 MPV 7.4 fl 06/10/16 07:57 Neutrophils % 68.4 % (40.0-80.0) 06/02/16 12:00 Lymphocytes % 23.8 % (20.0-50.0) 06/02/16 12:00 Monocytes % 4.3 % (2.0-10.0) 06/02/16 12:00 Eosinophils % 1.2 % (0.0-5.0) 06/02/16 12:00 Basophils % 2.3 % (0.0-2.0) H 06/02/16 12:00 Neutrophils (Manual) 66 % (40-80) 06/10/16 07:57 Lymphocytes 27 % (20-50) 06/10/16 07:57 Monocytes 4 % (2-10) 06/10/16 07:57 Eosinophils 3 % (0-5) 06/10/16 07:57 Platelet Estimate ADEQUATE (NORMAL) 06/10/16 07:57 Platelet Morphology NORMAL (NORMAL) 06/10/16 07:57 RBC Morph Micro Appear NORMAL (NORMAL) 06/10/16 07:57 Sodium 140 mEq/L (136-145) 06/11/16 08:05 Potassium 4.1 mEq/L (3.5-5.1) 06/11/16 08:05 Chloride 106 mEq/L (98-107) 06/11/16 08:05 Carbon Dioxide 30.4 mEq/L (21.0-31.0) 06/11/16 08:05 Anion Gap 7.7 (7.0-16.0) 06/11/16 08:05 BUN 19 mg/dL (7-25) 06/11/16 08:05 Creatinine 0.8 mg/dL (0.6-1.2) 06/11/16 08:05 Est GFR ( Amer) > 60.0 ml/min (>90) 06/11/16 08:05 Est GFR (Non-Af Amer) > 60.0 ml/min 06/11/16 08:05 BUN/Creatinine Ratio 23.8 06/11/16 08:05 Glucose 111 mg/dL (70-105) H 06/11/16 08:05 POC Glucose 159 MG/DL (70 - 105) H 06/02/16 20:07 Calcium 9.8 mg/dL (8.6-10.3) 06/11/16 08:05 Total Bilirubin 0.3 mg/dL (0.3-1.0) 06/02/16 12:00 AST 20 U/L (13-39) 06/02/16 12:00 ALT 16 U/L (7-52) 06/02/16 12:00 Alkaline Phosphatase 154 U/L (34-104) H 06/02/16 12:00 Total Protein 8.0 gm/dL (6.0-8.3) 06/02/16 12:00 Albumin 4.1 gm/dL (3.7-5.3) 06/02/16 12:00 Globulin 3.9 gm/dL 06/02/16 12:00 Albumin/Globulin Ratio 1.1 (1.0-1.8) 06/02/16 12:00 Urine Source [place] 06/02/16 13:00 Urine Color YELLOW 06/02/16 13:00 Urine Clarity CLEAR (CLEAR) 06/02/16 13:00 Urine pH 6.0 02/24/17 13:00 Ur Specific [place] 1.025 (1.005-1.030) 06/02/16 13:00 Urine Protein NEGATIVE mg/dL (NEGATIVE) 06/02/16 13:00 Urine Glucose (UA) NEGATIVE mg/dL (NEGATIVE) 06/02/16 13:00 Urine Ketones NEGATIVE mg/dL (NEGATIVE) 06/02/16 13:00 Urine Blood TRACE (NEGATIVE) 06/02/16 13:00 Urine Nitrate NEGATIVE (NEGATIVE) 06/02/16 13:00 Urine Bilirubin NEGATIVE (NEGATIVE) 06/02/16 13:00 Urine Urobilinogen 0.2 E.U./dL (0.2 - 1.0) 06/02/16 13:00 Ur Leukocyte Esterase NEGATIVE (NEGATIVE) 06/02/16 13:00 Urine RBC 2-5 /hpf (0-5) 06/02/16 13:00 Urine WBC 0-2 /hpf (0-5) 06/02/16 13:00 Ur Epithelial Cells FEW /lpf (FEW) 06/02/16 13:00 Urine Bacteria FEW /hpf (NONE SEEN) 06/02/16 13:00 - Physical Exam Vitals and I&O: Vital Signs Temp 97.0 F 06/16/16 11:26 Pulse 71 06/16/16 11:26 Resp 19 06/16/16 11:26 BP 125/75 06/16/16 11:26 Pulse Ox 97 06/16/16 11:26 Active Medications: Current Medications Acetaminophen (Tylenol) 650 mg PO Q4HR PRN PRN Reason: PAIN OR TEMP >100.5 Stop: 08/01/16 17:26 Al Hydrox/Mg Hydrox/Simethicone (Maalox) 30 ml PO Q4HR PRN PRN Reason: GI DISTRESS Stop: 08/01/16 15:49 Aspirin (Aspirin Chewable) 81 mg PO DAILY [facility] Stop: 08/02/16 08:59 Last Admin: 06/16/16 08:06 Dose: 81 mg Clonidine HCl (Catapres) 0.1 mg PO Q8H PRN PRN Reason: HTN Stop: 08/01/16 17:26 Clopidogrel Bisulfate (Plavix) 75 mg PO DAILY [facility] Stop: 08/02/16 08:59 Last Admin: 06/16/16 08:06 Dose: 75 mg Donepezil HCl (Aricept) 10 mg PO HS [facility] Stop: 08/11/16 20:59 Last Admin: 06/15/16 21:03 Dose: 10 mg Lactulose (Cephulac) 20 gm PO BID [facility] Stop: 08/02/16 08:59 Last Admin: 06/16/16 08:07 Dose: 20 gm Lorazepam (Ativan) 0.5 mg PO Q4HR PRN; Protocol PRN Reason: Anxiety Stop: 07/02/16 15:49 Magnesium Oxide (Mag-Oxide) 400 mg PO DAILY [facility] Stop: 08/02/16 08:59 Last Admin: 06/16/16 08:06 Dose: 400 mg Metoprolol Succinate (Toprol Xl) 25 mg PO DAILY [facility] Stop: 08/02/16 08:59 Last Admin: 06/16/16 08:07 Dose: 25 mg Multivitamins/Vitamin C (Theragran) 1 tab PO DAILY [facility] Stop: 08/02/16 08:59 Last Admin: 06/16/16 08:06 Dose: 1 tab Neomycin/Polymyxin/Bacitracin (Triple Antibiotic Pkt) 1 pkt TP DAILY [facility] Stop: 08/02/16 08:59 Last Admin: 06/16/16 08:06 Dose: Not Given Olanzapine (Zyprexa) 5 mg PO HS [facility] PRN Reason: Protocol Stop: 08/05/16 20:59 Last Admin: 06/15/16 21:03 Dose: 5 mg Zolpidem Tartrate (Ambien) 5 mg PO HS PRN PRN Reason: Insomnia Stop: 08/01/16 15:49 General: demented HEENT: NC/AT, PERRLA Neck: Supple, No JVD, No LAD Lungs: CTAB Cardiovascular: RRR, Normal S1, Normal S2 Abdomen: soft non-tender, globular, positive bowel sound Extremities: excoriation Neurological: no change Internal Medicine Assmt/Plan - Assessment Assessment: COPD ERYTHROCYTOSIS STROKE GASTRITIS CONTRACTURES HYPERGLYCEMIA HTN ASTHMA - Plan Plan: o2 bronchodilator tx fall precaution cont on bp meds dw rn Nutritional Asmnt/Malnutr-PDOC - Dietary Evaluation Malnutrition Findings (Please click <Entered> for more info): Nutritional Asmnt/Malnutrition Start: 06/09/16 16: 21 Text: Status: Complete Freq: Document 06/09/16 16:21 GSUN (Rec: 06/09/16 16:30 GSUN [email or web address]) Nutritional Asmnt/Malnutrition Patient General Information Nutritional Screening Moderate Risk Screening Diagnosis Agitation Pertinent Medical Hx/Surgical Hx Stroke, gastritis, generalized contractures, COPD, smokes, unspecified psychotic disorder Subjective Information 60 year old female from SNF. RD attempted visit twice, first time pt was asleep, second time pt remained silent . Per nursing staff, no nutritional concerns at this time. PO intake 75-100% since adm, meeting nutritional needs . Mild wasting to the temporals noted. Current Diet Order/ Nutrition Support Regular Pertinent Medications Maalox, Mag-Oxide, Theragran Pertinent Labs Reviewed. Glucose 159H. Nutritional Hx/Data Height 1.78 m Height (Calculated Centimeters) 177.8 Current Weight (lbs) 62.188 kg Weight (Calculated Kilograms) 62.2 Weight (Calculated Grams) 17927.5 [place] Body Weight 150lb Weight Status Approriate GI Symptoms Cultural/Ethnic/Adventism Belief Unknown. Usual diet at home Unknown. Skin Integrity/Comment: [place] 16. Skin intact. Estimated Nutritional Goals Calories/Kcals/Kg IBW 68.1kg, 25-30kcal/kg Kcals Calculated 1703-2043kcal Protein g/kg: IBW 1g/kg Protein Calculated 68g Fluid: ml 1703-2043ml (1ml/kcal) Nutritional Problem 1. Problem Problem No nutritional problems at this time. Intervention/Recommendation Comments 1. Continue with regular diet. Current PO intake is adequate . Expected Outcomes/Goals Expected Outcomes/Goals 1. PO intake continue to meet at least 75% of estimated nutritional needs.
--- NOTE | 2016-06-16 23:11 | Discharge Summary ---
REASON FOR HOSPITALIZATION: Schizoaffective disorder, psychotic phase. HISTORY OF PRESENT ILLNESS: The patient is a 60-year-old female, who was sent from her halfway facility for yelling episodes, anger, and agitation, and attempting to hit staff, refusing care, refusing medications. The patient was extremely paranoid, talking to herself. The patient was admitted. HOSPITALIZATION COURSE: Medications were implemented. The patient initially was refusing, but she started to comply. Condition slowly started to improve, agitation resolved. Sleep improved, appetite improved. The patient continued to have ____ where she is talking to herself, but her anger resolved. On 06/16/2016, the patient was discharged back to the facility. She was not suicidal or homicidal, and she did not have any aggressive behavior. FINAL DIAGNOSES: Schizoaffective disorder; dementia, Alzheimer's type versus vascular. Medical, history of hypertension, osteoarthritis, and CVA. CONDITION ON DISCHARGE: Improved. No agitation. Fair sleep and appetite. No suicidal or homicidal thoughts. DISPOSITION: The patient was discharged to [facility]. EXPECTED COURSE OF RECOVERY: The patient with chronic condition. JOB# [id number]
== END 2016-06-16 18:00 | DRG 885 ==
LOC: ER 11:33 → GERO 14:39
DX: F25.9 Schizoaffective disorder, unspecified (principal); E11.65 Type 2 diabetes mellitus with hyperglycemia; F29 Unspecified psychosis not due to a substance or known physiological condition; D75.1 Secondary polycythemia; F02.80 Dementia in other diseases classified elsewhere, unspecified severity, without behavioral disturbance, psychotic disturbance, mood disturbance, and anxiety; G30.9 Alzheimer's disease, unspecified; I10 Essential (primary) hypertension; J44.9 Chronic obstructive pulmonary disease, unspecified; K29.70 Gastritis, unspecified, without bleeding; J45.909 Unspecified asthma, uncomplicated; F01.50 Vascular dementia, unspecified severity, without behavioral disturbance, psychotic disturbance, mood disturbance, and anxiety; M19.90 Unspecified osteoarthritis, unspecified site; Z88.0 Allergy status to penicillin; Z86.73 Personal history of transient ischemic attack (TIA), and cerebral infarction without residual deficits; Z91.14 Patient's other noncompliance with medication regimen
CPT/HCPCS: 36415-UA; 71010-TC; 80048-TC; 80053-TC; 81001-TC; 82948-90; 85007-TC; 85025-TC; 85027-TC; 90899; G0410; J7051; Z7610

== ENCOUNTER 2018-09-05 19:03 | Inpatient (IN) | payer MEDICARE, MEDICAID ==
--- NOTE | 2018-09-05 19:28 | ED Physician Chart ---
ED Chief Complaint/HPI - Patient Information Date Seen:: 09/05/18 Time Seen:: 19:20 Chief Complaint:: agitation History of Present Illness:: Patient has been more agitated and exhibiting aggressive behavior at her extended care facility. Allergies:: Allergies Allergy/AdvReac Type Severity Reaction Status Date / Time Penicillins Allergy Verified 06/02/16 11:49 Vitals:: Vital Signs - 8 hr 09/05/18 19:08 Temp 98.4 F HR 92 RR 19 BP 100/82 O2 Sat % 95 Historian:: EMS Review:: Transfer documents Reviewed ED Review of Systems - Review of Systems General/Constitutional: No fever, No chills Skin: No skin lesions Head: No headache Eyes: No loss of vision ENT: No earache Neck: No neck pain, No swelling Cardio Vascular: No chest pain, No palpitations Pulmonary: No SOB GI: No nausea, No vomiting, No diarrhea G/U: No dysuria Musculoskeletal: No bone or joint pain Endocrine: No polyuria Psychiatric: Prior psych history Hematopoietic: No bruising Allergic/Immuno: No urticaria Neurological: No syncope ED Past Medical History - Past Medical History Past Medical History: HTN, Asthma/COPD, CVA/TIA, Other (CVA with left-sided paralysis) Family History: Other (not available) Social History: Care Facility Surgical History: other (trach) Psychiatricy History: Dementia, Other (patient reportedly only oriented 2) Family Medical History - Family Member Mother History Unknown: Yes Ethnicity: Unknown Living Status: Unknown ED Physical Exam - Physical Examination General/Constitutional: Awake, Alert Other Gen/Cons comments:: Patient follows simple commands; constant movement of her head and right arm Head: Atraumatic Eyes: Lids, conjuctiva normal, PERRL Skin: Nl inspection, No rash ENMT: External ears, nose nl, Nasal exam nl Neck: No nuchal rigidity Respiratory: Nl effort/Exclusion, Clear to Auscultation Cardio Vascular: RRR, No murmur, gallop, rubs GI: No tenderness/rebounding/guarding, No organomegaly, No hernia, Normal BS's Other Extremities comments:: Dense left-sided paralysis Other Neuro/Psych comments:: Dense left-sided paralysis ED Labs/Radiology/EKG Results - Lab Results Results: Laboratory Results WBC 12.4 Th/cmm (4.8-10.8) H 09/05/18 10:06 RBC 5.40 Mil/cmm (3.80-5.10) H 09/05/18 10:06 Hgb 16.8 gm/dL (12-16) 09/05/18 10:06 Hct 49.5 % (41.0-60) 09/05/18 10:06 MCV 91.5 fl (81-100) 09/05/18 10:06 MCH 31.1 pg (27.0-31.0) H 09/05/18 10:06 MCHC Differential 34.0 pg (28.0-36.0) 09/05/18 10:06 RDW 12.6 % (11.5-20.0) 09/05/18 10:06 Plt Count 692 Th/cmm (150-400) H 09/05/18 10:06 MPV 7.1 fl 09/05/18 10:06 Neutrophils % 78.0 % (40.0-80.0) 09/05/18 10:06 Lymphocytes % 15.7 % (20.0-50.0) L 09/05/18 10:06 Monocytes % 5.2 % (2.0-10.0) 09/05/18 10:06 Eosinophils % 1.1 % (0.0-5.0) 09/05/18 10:06 Basophils % 0.0 % (0.0-2.0) 09/05/18 10:06 Laboratory Results WBC 12.4 Th/cmm (4.8-10.8) H 09/05/18 10:06 RBC 5.40 Mil/cmm (3.80-5.10) H 09/05/18 10:06 Hgb 16.8 gm/dL (12-16) 09/05/18 10:06 Hct 49.5 % (41.0-60) 09/05/18 10:06 MCV 91.5 fl (81-100) 09/05/18 10:06 MCH 31.1 pg (27.0-31.0) H 09/05/18 10:06 MCHC Differential 34.0 pg (28.0-36.0) 09/05/18 10:06 RDW 12.6 % (11.5-20.0) 09/05/18 10:06 Plt Count 692 Th/cmm (150-400) H 09/05/18 10:06 MPV 7.1 fl 09/05/18 10:06 Neutrophils % 78.0 % (40.0-80.0) 09/05/18 10:06 Lymphocytes % 15.7 % (20.0-50.0) L 09/05/18 10:06 Monocytes % 5.2 % (2.0-10.0) 09/05/18 10:06 Eosinophils % 1.1 % (0.0-5.0) 09/05/18 10:06 Basophils % 0.0 % (0.0-2.0) 09/05/18 10:06 Laboratory Results WBC 12.4 Th/cmm (4.8-10.8) H 09/05/18 10:06 RBC 5.40 Mil/cmm (3.80-5.10) H 09/05/18 10:06 Hgb 16.8 gm/dL (12-16) 09/05/18 10:06 Hct 49.5 % (41.0-60) 09/05/18 10:06 MCV 91.5 fl (81-100) 09/05/18 10:06 MCH 31.1 pg (27.0-31.0) H 09/05/18 10:06 MCHC Differential 34.0 pg (28.0-36.0) 09/05/18 10:06 RDW 12.6 % (11.5-20.0) 09/05/18 10:06 Plt Count 692 Th/cmm (150-400) H 09/05/18 10:06 MPV 7.1 fl 09/05/18 10:06 Neutrophils % 78.0 % (40.0-80.0) 09/05/18 10:06 Lymphocytes % 15.7 % (20.0-50.0) L 09/05/18 10:06 Monocytes % 5.2 % (2.0-10.0) 09/05/18 10:06 Eosinophils % 1.1 % (0.0-5.0) 09/05/18 10:06 Basophils % 0.0 % (0.0-2.0) 09/05/18 10:06 Sodium 139 mEq/L (136-145) 09/05/18 10:06 Potassium 3.9 mEq/L (3.5-5.1) 09/05/18 10:06 Chloride 107 mEq/L (98-107) 09/05/18 10:06 Carbon Dioxide 24.0 mEq/L (21.0-31.0) 09/05/18 10:06 Anion Gap 11.9 (7.0-16.0) 09/05/18 10:06 BUN 22 mg/dL (7-25) 09/05/18 10:06 Creatinine 0.9 mg/dL (0.6-1.2) 09/05/18 10:06 Est GFR ( Amer) > 60.0 ml/min (>90) 09/05/18 10:06 Est GFR (Non-Af Amer) > 60.0 ml/min 09/05/18 10:06 BUN/Creatinine Ratio 24.4 09/05/18 10:06 Glucose 111 mg/dL (70-105) H 09/05/18 10:06 Calcium 9.7 mg/dL (8.6-10.3) 09/05/18 10:06 Total Bilirubin 0.4 mg/dL (0.3-1.0) 09/05/18 10:06 AST 19 U/L (13-39) 09/05/18 10:06 ALT 19 U/L (7-52) 09/05/18 10:06 Alkaline Phosphatase 126 U/L (34-104) H 09/05/18 10:06 Creatine Kinase 82 U/L (30-223) 09/05/18 10:06 Total Protein 7.4 gm/dL (6.0-8.3) 09/05/18 10:06 Albumin 4.1 gm/dL (3.7-5.3) 09/05/18 10:06 Globulin 3.3 gm/dL 09/05/18 10:06 Albumin/Globulin Ratio 1.2 (1.0-1.8) 09/05/18 10:06 Triglycerides 97 mg/dL (<150) 09/05/18 10:06 Cholesterol 199 mg/dL (<200) 09/05/18 10:06 LDL Cholesterol Direct 122 mg/dL (75-193) 09/05/18 10:06 HDL Cholesterol 53 mg/dL (23-92) 09/05/18 10:06 Salicylates < 25.0 mg/L (30.0-100.0) L 09/05/18 10:06 Acetaminophen < 10.0 ug/mL (10.0-30.0) L 09/05/18 10:06 Ethyl Alcohol < 10 mg/dL (0-10) 09/05/18 10:06 - Radiology Results Results: Chest x-ray negative for infiltrate - EKG Interpretations Rate & Rhythm: normal sinus rhythm with a rate is 65 [place]: left axis deviation Comments:: Incomplete right bundle-branch block ED Septic Shock - . Is Septic Shock (SBP<90, OR Lactate>4 mmol\L) present?: No - <6hrs of presentation: Vital Signs: Vital Signs - 8 hr 09/05/18 19:08 Temp 98.4 F HR 92 RR 19 BP 100/82 O2 Sat % 95 ED Reassessment (Disposition) - Reassessment Reassessment Condition:: Unchanged - Diagnosis Diagnosis:: Dementia with agitation; cerebrovascular accident with left-sided paralysis - Patient Disposition Admitted to:: [facility] Admitting Medical Physician:: Ruben Cruz Admitting Psych Physician:: Vashti Moe
[2018-09-05 20:17] LABS: % EOSINOPHILS 1.1 % (0.0-5.0); % LYMPHOCYTES 15.7 % (20.0-50.0); % MONOCYTES 5.2 % (2.0-10.0); EOSINOPHILE ABSOLUTE 0.1 Th/cmm (0.1-0.4); HEMATOCRIT 49.5 % (41.0-60); HEMOGLOBIN 16.8 gm/dL (12-16); LYMPHOCYTE ABSOLUTE 1.9 Th/cmm (1.5-3.0); MEAN CELL VOLUME 91.5 fl (81-100); MEAN CORPUSCULAR HEMOGLOBIN 31.1 pg (27.0-31.0); MONOCYTE ABSOLUTE 0.6 Th/cmm (0.3-1.0); NEUTROPHILE ABSOLUTE 9.8 Th/cmm (1.8-8.0); PLATELET COUNT 692 Th/cmm (150-400); RED CELL DISTRIBUTION WIDTH 12.6 % (11.5-20.0); WHITE BLOOD COUNT 12.4 Th/cmm (4.8-10.8)
[2018-09-05 20:27] LABS: ACETAMINOPHEN < 10.0 ug/mL (10.0-30.0); ALB/GLOB RATIO 1.2 (1.0-1.8); ALBUMIN 4.1 gm/dL (3.7-5.3); ALKALINE PHOSPHATASE 126 U/L (34-104); ANION GAP 11.9 (7.0-16.0); BILIRUBIN,TOTAL 0.4 mg/dL (0.3-1.0); BUN - UREA NITROGEN 22 mg/dL (7-25); CALCIUM SERUM 9.7 mg/dL (8.6-10.3); CHLORIDE 107 mEq/L (98-107); CHOLESTEROL 199 mg/dL (<200); CREATININE - SERUM 0.9 mg/dL (0.6-1.2); GFR AFRICAN-AMERICAN > 60.0 ml/min (>90); GFR NON AFRICAN-AMERICAN > 60.0 ml/min; GLUCOSE 111 mg/dL (70-105); HDL -HIGH DENSITY LIPOPROTEIN 53 mg/dL (23-92); POTASSIUM SERUM 3.9 mEq/L (3.5-5.1); SGOT 19 U/L (13-39); SGPT/ALT 19 U/L (7-52); SODIUM SERUM 139 mEq/L (136-145); TOTAL PROTEIN,SERUM 7.4 gm/dL (6.0-8.3); TRIGLYCERIDES 97 mg/dL (<150)
[2018-09-05 22:58] VITALS: BP 115/74
[2018-09-05] MEDS ORDERED: Magnesium Hydroxide (MOM) 30 mL UDC PO PRN (23:00)
[2018-09-05] MEDS ORDERED: Maalox 30 mL Cup PO PRN (23:00)
[2018-09-06 05:42] LABS: CHOLESTEROL 204 mg/dL (<200); HDL -HIGH DENSITY LIPOPROTEIN 56 mg/dL (23-92); TRIGLYCERIDES 97 mg/dL (<150)
--- NOTE | 2018-09-06 08:35 | Diagnostic Imaging Report ---
Portable chest x-ray History: Shortness of breath Allowing for portable technique the heart size is normal. No focal pulmonary parenchymal processes. No hilar or mediastinal abnormalities. Scoliosis noted. Impression: No acute abnormalities.
[2018-09-06] MEDS: Lactulose 10 Gm/15 mL 30mL UDC PO SCH ×2 (11:48→16:09)
[2018-09-06] MEDS: Aspirin 81mg Chewable Tab PO SCH (11:48)
[2018-09-06] MEDS: Multivitamin w/ Minerals Tab PO SCH (11:48)
--- NOTE | 2018-09-06 18:02 | History & Physical ---
ADMIT DATE: 09/06/2018 CHIEF COMPLAINT: Medical evaluation and clearance. HISTORY OF PRESENT ILLNESS: This is a 62-year-old female with history of stroke with left-sided weakness, gastritis, COPD, asthma, hypercholesterolemia, dementia, admitted from nursing facility secondary to agitated behavior under the service of Dr. Moe. The patient is a poor historian. Denies chest pain, shortness of breath. PAST MEDICAL HISTORY: As mentioned in the history of present illness. PAST SURGICAL HISTORY: Denies surgeries in the past. ALLERGIES: PENICILLIN. MEDICATIONS: The patient is on aspirin, lactulose, magnesium, metoprolol, and multivitamins. FAMILY HISTORY: Noncontributory. SOCIAL HISTORY: The patient is a alf resident, requiring 24-hour nursing care. REVIEW OF SYSTEMS: This is limited secondary to the patient's current mental state. We will try to obtain more detailed review of system at a later date by talking to family members ____. Conservator, . We will also try to get information from nursing staff at [facility] [phone] Dr[address] Moe, who normally follows the patient. PHYSICAL EXAMINATION: VITAL SIGNS: Blood pressure 140/81, respirations 18, pulse 127/76. GENERAL: Elderly female, appears chronically ill. NECK: Supple. No mass. LUNGS: Equal breath sounds, few rhonchi. HEART: Regular rate and rhythm with systolic ejection murmur. ABDOMEN: Soft, globular. EXTREMITIES: Positive excoriation. NEUROLOGIC: Limited. LABORATORY DATA: WBC 12, hemoglobin 16, platelets 692. Sodium 139, potassium 3.9, BUN 24, creatinine 0.9, glucose 111. Albumin 4.1. ASSESSMENT AND PLAN: Leukocytosis, thrombocytosis, stroke with left-sided weakness, gastritis, COPD, generalized contractures, asthma, hyperglycemia, dementia. Continue the patient on nutrition support. We will monitor for any signs or symptoms of infection. Continue laxative. Continue beta tri. We will continue to follow the patient with Dr. Abhi fisher. JOB# [id number]
--- NOTE | 2018-09-07 04:21 | Psychiatric Evaluation ---
DATE OF SERVICE: 09/05/2018 IDENTIFYING DATA: The patient is a 62-year-old woman, resident of [facility]. JUSTIFICATION TO HOSPITALIZATION: The patient is admitted here on a voluntary basis in view of her acute agitation and striking out and refusing to comply with the medication. Staff was spoken to. The patient is interviewed. The patient, at this time, has been lying down in the bed and with very little interaction. The patient is stating that she is okay and does not want to be talking anymore because she is too tired. PAST PSYCHIATRIC HISTORY: The patient is being followed up by Dr. Moe on an outpatient basis. The patient has been conserved. The patient is on donepezil and lorazepam as needed. MEDICAL HISTORY: Physical examination is requested to be done by Dr. Cruz and is noted to be significant for multiple medical problems. The patient has history of hypertension, asthma, COPD, history of CVA, left-sided paralysis. SUBSTANCE ABUSE HISTORY: None. PHYSICAL OR SEXUAL ABUSE HISTORY: None. LEGAL PROBLEMS: None at this time. SOCIAL HISTORY: The patient is a resident of a snf facility. MENTAL STATUS EXAMINATION: The patient is a 62-year-old woman, looking older than her stated age, superficially cooperative. Eye contact is poor. Mood is noted to be irritable. Affect is constricted. Insight and judgment, at this time, are noted to be still impaired. Impulse control is noted to be limited. Coping skills are noted to be limited. The patient has been having difficult time to cope with the stress. The patient is getting easily irritable, angry, and upset. The patient, at this time, has been having difficult time to articulate. Short and long-term are noted to be poor. Attention span and concentration are noted to be poor. The patient is reported to have been out of control. DIAGNOSTIC IMPRESSION: AXIS I: A. Depressive disorder, not otherwise specified. B. Psychosis, not otherwise specified. AXIS II: None. AXIS III: As per Dr. Cruz. IMMEDIATE TREATMENT PLAN: The patient is going to be observed on the inpatient unit, provided with supportive psychotherapy. The patient is going to be closely monitored. I encouraged her to participate in the groups and verbalize the concerns. Once stabilized, the patient is going to be discharged to [facility] to be followed up on an outpatient basis. JOB# [id number]
[2018-09-07 08:07] LABS: A1C 5.5 % (4.8-5.6)
[2018-09-07] MEDS: Multivitamin w/ Minerals Tab PO SCH (09:51)
[2018-09-07] MEDS: Aspirin 81mg Chewable Tab PO SCH (09:52)
[2018-09-07] MEDS: Lactulose 10 Gm/15 mL 30mL UDC PO SCH ×2 (09:52→17:16)
--- NOTE | 2018-09-07 11:20 | Internal Medicine Prog Note ---
Internal Medicine Subjective - Subjective Patient seen and examined:: with staff, chart reviewed Patient is:: asleep, non-verbal, non-interactive, in bed, confused Per staff patient has:: no adverse event, no episodes of fall, confused, tolerating meds Internal Medicine Objective - Results Result Diagrams: 09/05/18 10:06 09/05/18 10:06 Recent Labs: Laboratory Last Values WBC 12.4 Th/cmm (4.8-10.8) H 09/05/18 10:06 RBC 5.40 Mil/cmm (3.80-5.10) H 09/05/18 10:06 Hgb 16.8 gm/dL (12-16) 09/05/18 10:06 Hct 49.5 % (41.0-60) 09/05/18 10:06 MCV 91.5 fl (81-100) 09/05/18 10:06 MCH 31.1 pg (27.0-31.0) H 09/05/18 10:06 MCHC Differential 34.0 pg (28.0-36.0) 09/05/18 10:06 RDW 12.6 % (11.5-20.0) 09/05/18 10:06 Plt Count 692 Th/cmm (150-400) H 09/05/18 10:06 MPV 7.1 fl 09/05/18 10:06 Neutrophils % 78.0 % (40.0-80.0) 09/05/18 10:06 Lymphocytes % 15.7 % (20.0-50.0) L 09/05/18 10:06 Monocytes % 5.2 % (2.0-10.0) 09/05/18 10:06 Eosinophils % 1.1 % (0.0-5.0) 09/05/18 10:06 Basophils % 0.0 % (0.0-2.0) 09/05/18 10:06 Sodium 139 mEq/L (136-145) 09/05/18 10:06 Potassium 3.9 mEq/L (3.5-5.1) 09/05/18 10:06 Chloride 107 mEq/L (98-107) 09/05/18 10:06 Carbon Dioxide 24.0 mEq/L (21.0-31.0) 09/05/18 10:06 Anion Gap 11.9 (7.0-16.0) 09/05/18 10:06 BUN 22 mg/dL (7-25) 09/05/18 10:06 Creatinine 0.9 mg/dL (0.6-1.2) 09/05/18 10:06 Est GFR ( Amer) > 60.0 ml/min (>90) 09/05/18 10:06 Est GFR (Non-Af Amer) > 60.0 ml/min 09/05/18 10:06 BUN/Creatinine Ratio 24.4 09/05/18 10:06 Glucose 111 mg/dL (70-105) H 09/05/18 10:06 Calcium 9.7 mg/dL (8.6-10.3) 09/05/18 10:06 Total Bilirubin 0.4 mg/dL (0.3-1.0) 09/05/18 10:06 AST 19 U/L (13-39) 09/05/18 10:06 ALT 19 U/L (7-52) 09/05/18 10:06 Alkaline Phosphatase 126 U/L (34-104) H 09/05/18 10:06 Creatine Kinase 82 U/L (30-223) 09/05/18 10:06 Total Protein 7.4 gm/dL (6.0-8.3) 09/05/18 10:06 Albumin 4.1 gm/dL (3.7-5.3) 09/05/18 10:06 Globulin 3.3 gm/dL 09/05/18 10:06 Albumin/Globulin Ratio 1.2 (1.0-1.8) 09/05/18 10:06 Triglycerides 97 mg/dL (<150) 09/05/18 20:05 Cholesterol 204 mg/dL (<200) H 09/05/18 20:05 LDL Cholesterol Direct 126 mg/dL (75-193) 09/05/18 20:05 HDL Cholesterol 56 mg/dL (23-92) 09/05/18 20:05 TSH 0.94 uIU/ml (0.34-5.60) 09/05/18 10:06 Salicylates < 25.0 mg/L (30.0-100.0) L 09/05/18 10:06 Acetaminophen < 10.0 ug/mL (10.0-30.0) L 09/05/18 10:06 Ethyl Alcohol < 10 mg/dL (0-10) 09/05/18 10:06 RPR NONREACTIVE (NONREACTIVE) 09/05/18 10:06 - Physical Exam Vitals and I&O: Vital Signs Temp 98.1 F 09/07/18 06:02 Pulse 70 09/07/18 09:51 Resp 18 09/07/18 06:02 BP 128/67 09/07/18 09:51 Pulse Ox 93 09/07/18 06:02 Intake & Output 09/06/18 09/07/18 09/07/18 18:59 06:59 18:59 Intake Total 1200 Balance 1200 Intake: Oral 1200 Other: # Bowel Movements 1 Active Medications: Current Medications Acetaminophen (Tylenol) 650 mg PO Q4HR PRN PRN Reason: Mild Pain / Temp above 100 Stop: 11/04/18 22:59 Al Hydrox/Mg Hydrox/Simethicone (Maalox) 30 ml PO Q4HR PRN PRN Reason: GI DISTRESS Stop: 11/04/18 22:59 Aspirin (Aspirin Chewable) 81 mg PO DAILY [facility] Stop: 11/05/18 11:59 Last Admin: 09/07/18 09:52 Dose: 81 mg Donepezil HCl (Aricept) 5 mg PO HS BEREKET Stop: 11/05/18 20:59 Last Admin: 09/06/18 20:45 Dose: 5 mg Lactulose (Cephulac) 20 gm PO BID BEREKET Stop: 11/05/18 11:59 Last Admin: 09/07/18 09:52 Dose: 20 gm Lorazepam (Ativan) 0.5 mg PO Q4HR PRN; Protocol PRN Reason: Anxiety Stop: 10/05/18 22:59 Last Admin: 09/07/18 11:10 Dose: 0.5 mg Magnesium Hydroxide (Milk Of Magnesia) 30 ml PO HS PRN PRN Reason: Constipation Magnesium Oxide (Mag-Oxide) 400 mg PO DAILY BEREKET Stop: 11/06/18 08:59 Last Admin: 09/07/18 09:51 Dose: 400 mg Metoprolol Tartrate (Lopressor) 25 mg PO Q12HR BEREKET Stop: 11/05/18 11:59 Last Admin: 09/07/18 09:51 Dose: 25 mg Quetiapine Fumarate (Seroquel) 12.5 mg PO HS BEREKET; Protocol Stop: 11/05/18 20:59 Last Admin: 09/06/18 20:45 Dose: 12.5 mg Zolpidem Tartrate (Ambien) 5 mg PO HS PRN PRN Reason: Insomnia Stop: 11/04/18 22:59 General: demented HEENT: NC/AT, PERRLA Neck: Supple Lungs: congested Cardiovascular: RRR, Normal S1, Normal S2, with murmur Abdomen: soft, non-distended, positive bowel sound Extremities: excoriation, contracture Internal Medicine Assmt/Plan - Assessment Assessment: ASSESSMENT AND PLAN: Leukocytosis, thrombocytosis, stroke with left-sided weakness, gastritis, COPD, generalized contractures, asthma, hyperglycemia, dementia. - Plan Plan: PLAN: Continue the patient on nutrition support. We will monitor for any signs or symptoms of infection. Continue laxative. Continue beta tri. We will continue to follow the patient with you, Dr. Moe.
--- NOTE | 2018-09-08 00:29 | Progress Notes ---
DATE: 09/07/2018 SUBJECTIVE: Staff was spoken to. The patient is interviewed. Mood is noted to be less irritable. The patient is reporting that she had good night sleep last night. No side effects to the medications are noted. The patient is able to tolerate the low dose of the Seroquel and the patient is going to be followed up. JOB# [id number]
[2018-09-08] MEDS: Aspirin 81mg Chewable Tab PO SCH (09:22)
[2018-09-08] MEDS: Multivitamin w/ Minerals Tab PO SCH (09:22)
[2018-09-08] MEDS: Lactulose 10 Gm/15 mL 30mL UDC PO SCH ×2 (09:23→17:35)
--- NOTE | 2018-09-08 09:46 | Consultation ---
DATE OF CONSULTATION: 09/07/2018 DATE OF CONSULTATION: 09/07/2018 REFERRING PHYSICIAN: Azalea Garsia MD TYPE OF CONSULTATION: Psychology. HISTORY OF PRESENT ILLNESS: The patient is a 62-year-old -[place] female. The patient is a resident of [facility]. The following is by record review and by the patient's self-report. The patient is being admitted due to acute agitation and striking out behavior as well as refusing medication and resistant to treatment. Upon interview, the patient is responding minimally in her verbal responses to the clinical interview questions. The patient denied any stress. The patient denied that she has been agitated or has been striking out at staff or peers. The patient did not answer questions about refusing medication or refusing treatment. The patient denied any suicidal ideation, plan, or intention at the time of this clinical interview. Staff reports that the patient has had episodes of striking out and refusing to comply with medication. PAST MEDICAL HISTORY: Please see history and physical by Dr. Cruz. PAST PSYCHIATRIC HISTORY: The patient is under the care of Dr. Moe at her [facility] placement. The patient is also conserved. The patient has a history of a psychotic disorder. The patient has at least 1 previous hospitalization here on the [facility]. SUBSTANCE ABUSE HISTORY: The patient declined to answer these questions. PSYCHOSOCIAL HISTORY: The patient did not answer questions about occupational history or educational history. The patient's conservator is Aixa Vences. The patient indicated that she is Gnosticism. The patient is single with no children according to the record. The patient denied any history of physical or sexual abuse or any current legal problems. The patient expects to return to her placement at [facility]. MENTAL STATUS EXAMINATION: The patient appears to be older than her stated age. The patient's attitude is superficially cooperative. Eye contact is [id number]. Mood is irritable and guarded. Affect is constricted. Speech is slow, soft, and delayed. Mood is somewhat irritable. Affect is constricted. Thought process shows to be confused as well as concrete. The patient answered the clinical questions in a yes or no manner. The patient denied any auditory or visual hallucinations or delusions. The patient denies any suicidal ideation or homicidal ideation, plan, or intention. The patient denied the behavior of striking out at staff. The patient states that she does not need medication. The patient is generally withdrawn. Impulse control is inadequate. Concentration is poor. The patient was unable to sustain focus and attention. Sensorium is alert and oriented to self only. The patient did not participate in the memory assessment. The patient did not participate in the interpretation of proverbs. Insight is poor. Judgment is impaired. DIAGNOSTIC IMPRESSION: AXIS I: 1. Psychotic disorder, not otherwise specified. 2. Depressive disorder, not otherwise specified. AXIS II: Deferred. AXIS III: Per Dr. Cruz. TREATMENT PLAN: The patient has been seen by Dr. Garsia for psychiatric evaluation and for the management of the patient's psychotropic medications. We will provide supportive psychotherapy to include reality orientation, differentiation, and integration. We will provide motivational enhancement for the patient to become compliant and stay compliant with all aspects of her care and treatment. We will encourage the patient to participate in the milieu therapy and to be able to get out of bed and follow through with staff direction. We will provide limit setting as well as boundary awareness and boundary definitions with respect to the patient's striking out behaviors. We will encourage the patient to verbally contract for no harm to others. We will provide coping strategies for phase of life issues. We will encourage the patient to demonstrate emotional and self-regulation and to be able to verbalize her concerns versus acting out. Thank you, Dr. Garsia for this consult and the opportunity to participate in this patient's care. JOB# [id number] MARIE
--- NOTE | 2018-09-08 12:13 | Internal Medicine Prog Note ---
Internal Medicine Subjective - Subjective Patient seen and examined:: with staff, chart reviewed Patient is:: asleep, non-verbal, non-interactive, in bed, confused Per staff patient has:: no adverse event, no episodes of fall, confused, tolerating meds Internal Medicine Objective - Results Result Diagrams: 09/05/18 10:06 09/05/18 10:06 Recent Labs: Laboratory Last Values WBC 12.4 Th/cmm (4.8-10.8) H 09/05/18 10:06 RBC 5.40 Mil/cmm (3.80-5.10) H 09/05/18 10:06 Hgb 16.8 gm/dL (12-16) 09/05/18 10:06 Hct 49.5 % (41.0-60) 09/05/18 10:06 MCV 91.5 fl (81-100) 09/05/18 10:06 MCH 31.1 pg (27.0-31.0) H 09/05/18 10:06 MCHC Differential 34.0 pg (28.0-36.0) 09/05/18 10:06 RDW 12.6 % (11.5-20.0) 09/05/18 10:06 Plt Count 692 Th/cmm (150-400) H 09/05/18 10:06 MPV 7.1 fl 09/05/18 10:06 Neutrophils % 78.0 % (40.0-80.0) 09/05/18 10:06 Lymphocytes % 15.7 % (20.0-50.0) L 09/05/18 10:06 Monocytes % 5.2 % (2.0-10.0) 09/05/18 10:06 Eosinophils % 1.1 % (0.0-5.0) 09/05/18 10:06 Basophils % 0.0 % (0.0-2.0) 09/05/18 10:06 Sodium 139 mEq/L (136-145) 09/05/18 10:06 Potassium 3.9 mEq/L (3.5-5.1) 09/05/18 10:06 Chloride 107 mEq/L (98-107) 09/05/18 10:06 Carbon Dioxide 24.0 mEq/L (21.0-31.0) 09/05/18 10:06 Anion Gap 11.9 (7.0-16.0) 09/05/18 10:06 BUN 22 mg/dL (7-25) 09/05/18 10:06 Creatinine 0.9 mg/dL (0.6-1.2) 09/05/18 10:06 Est GFR ( Amer) > 60.0 ml/min (>90) 09/05/18 10:06 Est GFR (Non-Af Amer) > 60.0 ml/min 09/05/18 10:06 BUN/Creatinine Ratio 24.4 09/05/18 10:06 Glucose 111 mg/dL (70-105) H 09/05/18 10:06 Calcium 9.7 mg/dL (8.6-10.3) 09/05/18 10:06 Total Bilirubin 0.4 mg/dL (0.3-1.0) 09/05/18 10:06 AST 19 U/L (13-39) 09/05/18 10:06 ALT 19 U/L (7-52) 09/05/18 10:06 Alkaline Phosphatase 126 U/L (34-104) H 09/05/18 10:06 Creatine Kinase 82 U/L (30-223) 09/05/18 10:06 Total Protein 7.4 gm/dL (6.0-8.3) 09/05/18 10:06 Albumin 4.1 gm/dL (3.7-5.3) 09/05/18 10:06 Globulin 3.3 gm/dL 09/05/18 10:06 Albumin/Globulin Ratio 1.2 (1.0-1.8) 09/05/18 10:06 Triglycerides 97 mg/dL (<150) 09/05/18 20:05 Cholesterol 204 mg/dL (<200) H 09/05/18 20:05 LDL Cholesterol Direct 126 mg/dL (75-193) 09/05/18 20:05 HDL Cholesterol 56 mg/dL (23-92) 09/05/18 20:05 TSH 0.94 uIU/ml (0.34-5.60) 09/05/18 10:06 Salicylates < 25.0 mg/L (30.0-100.0) L 09/05/18 10:06 Acetaminophen < 10.0 ug/mL (10.0-30.0) L 09/05/18 10:06 Ethyl Alcohol < 10 mg/dL (0-10) 09/05/18 10:06 RPR NONREACTIVE (NONREACTIVE) 09/05/18 10:06 - Physical Exam Vitals and I&O: Vital Signs Temp 97.6 F 09/08/18 06:30 Pulse 70 09/08/18 09:22 Resp 19 09/08/18 06:30 BP 123/68 09/08/18 09:22 Pulse Ox 97 09/08/18 06:30 Intake & Output 09/07/18 09/08/18 09/08/18 18:59 06:59 18:59 Intake Total 960 Balance 960 Intake: Oral 960 Other: # Voids 3 # Bowel Movements 1 Active Medications: Current Medications Acetaminophen (Tylenol) 650 mg PO Q4HR PRN PRN Reason: Mild Pain / Temp above 100 Stop: 11/04/18 22:59 Al Hydrox/Mg Hydrox/Simethicone (Maalox) 30 ml PO Q4HR PRN PRN Reason: GI DISTRESS Stop: 11/04/18 22:59 Aspirin (Aspirin Chewable) 81 mg PO DAILY [facility] Stop: 11/05/18 11:59 Last Admin: 09/08/18 09:22 Dose: 81 mg Donepezil HCl (Aricept) 5 mg PO HS [facility] Stop: 11/05/18 20:59 Last Admin: 09/07/18 20:35 Dose: 5 mg Lactulose (Cephulac) 20 gm PO BID [facility] Stop: 11/05/18 11:59 Last Admin: 09/08/18 09:23 Dose: 20 gm Lorazepam (Ativan) 0.5 mg PO Q4HR PRN; Protocol PRN Reason: Anxiety Stop: 10/05/18 22:59 Last Admin: 09/08/18 09:23 Dose: 0.5 mg Magnesium Hydroxide (Milk Of Magnesia) 30 ml PO HS PRN PRN Reason: Constipation Magnesium Oxide (Mag-Oxide) 400 mg PO DAILY [facility] Stop: 11/06/18 08:59 Last Admin: 09/08/18 09:23 Dose: 400 mg Metoprolol Tartrate (Lopressor) 25 mg PO Q12HR [facility] Stop: 11/05/18 11:59 Last Admin: 09/08/18 09:22 Dose: 25 mg Quetiapine Fumarate (Seroquel) 12.5 mg PO HS BEREKET; Protocol Stop: 11/05/18 20:59 Last Admin: 09/07/18 20:36 Dose: 12.5 mg Zolpidem Tartrate (Ambien) 5 mg PO HS PRN PRN Reason: Insomnia Stop: 11/04/18 22:59 Last Admin: 09/07/18 20:37 Dose: 5 mg General: demented HEENT: NC/AT, PERRLA Neck: Supple Lungs: congested Cardiovascular: RRR, Normal S1, Normal S2, with murmur Abdomen: soft, non-distended, positive bowel sound Extremities: excoriation, contracture Internal Medicine Assmt/Plan - Assessment Assessment: ASSESSMENT AND PLAN: Leukocytosis, thrombocytosis, stroke with left-sided weakness, gastritis, COPD, generalized contractures, asthma, hyperglycemia, dementia. - Plan Plan: PLAN: Continue the patient on nutrition support. We will monitor for any signs or symptoms of infection. Continue laxative. Continue beta tri. We will continue to follow the patient with Dr. Abhi fisher.
--- NOTE | 2018-09-08 23:24 | Progress Notes ---
DATE: 09/08/2018 SUBJECTIVE: Staff was spoken to. The patient is interviewed. Mood is noted to be less irritable. Affect is appropriate. Continues to be paranoid. Insight and judgment at this time noted to be still improving. Impulse control seems to be fair. No side effects to the medications are noted. The patient has been able to comply with the medication. ASSESSMENT: The patient's aggressive behavior is being closely monitored. PLAN: To continue the patient with the supportive therapy and follow up. JOB# [id number]
[2018-09-09] MEDS: Aspirin 81mg Chewable Tab PO SCH (08:25)
[2018-09-09] MEDS: Lactulose 10 Gm/15 mL 30mL UDC PO SCH ×2 (08:26→17:13)
[2018-09-09] MEDS: Multivitamin w/ Minerals Tab PO SCH (08:26)
--- NOTE | 2018-09-09 12:46 | Internal Medicine Prog Note ---
Internal Medicine Subjective - Subjective Patient seen and examined:: with staff, chart reviewed Patient is:: asleep, non-verbal, non-interactive, in bed, confused Per staff patient has:: no adverse event, no episodes of fall, confused, tolerating meds Internal Medicine Objective - Results Result Diagrams: 09/05/18 10:06 09/05/18 10:06 Recent Labs: Laboratory Last Values WBC 12.4 Th/cmm (4.8-10.8) H 09/05/18 10:06 RBC 5.40 Mil/cmm (3.80-5.10) H 09/05/18 10:06 Hgb 16.8 gm/dL (12-16) 09/05/18 10:06 Hct 49.5 % (41.0-60) 09/05/18 10:06 MCV 91.5 fl (81-100) 09/05/18 10:06 MCH 31.1 pg (27.0-31.0) H 09/05/18 10:06 MCHC Differential 34.0 pg (28.0-36.0) 09/05/18 10:06 RDW 12.6 % (11.5-20.0) 09/05/18 10:06 Plt Count 692 Th/cmm (150-400) H 09/05/18 10:06 MPV 7.1 fl 09/05/18 10:06 Neutrophils % 78.0 % (40.0-80.0) 09/05/18 10:06 Lymphocytes % 15.7 % (20.0-50.0) L 09/05/18 10:06 Monocytes % 5.2 % (2.0-10.0) 09/05/18 10:06 Eosinophils % 1.1 % (0.0-5.0) 09/05/18 10:06 Basophils % 0.0 % (0.0-2.0) 09/05/18 10:06 Sodium 139 mEq/L (136-145) 09/05/18 10:06 Potassium 3.9 mEq/L (3.5-5.1) 09/05/18 10:06 Chloride 107 mEq/L (98-107) 09/05/18 10:06 Carbon Dioxide 24.0 mEq/L (21.0-31.0) 09/05/18 10:06 Anion Gap 11.9 (7.0-16.0) 09/05/18 10:06 BUN 22 mg/dL (7-25) 09/05/18 10:06 Creatinine 0.9 mg/dL (0.6-1.2) 09/05/18 10:06 Est GFR ( Amer) > 60.0 ml/min (>90) 09/05/18 10:06 Est GFR (Non-Af Amer) > 60.0 ml/min 09/05/18 10:06 BUN/Creatinine Ratio 24.4 09/05/18 10:06 Glucose 111 mg/dL (70-105) H 09/05/18 10:06 Calcium 9.7 mg/dL (8.6-10.3) 09/05/18 10:06 Total Bilirubin 0.4 mg/dL (0.3-1.0) 09/05/18 10:06 AST 19 U/L (13-39) 09/05/18 10:06 ALT 19 U/L (7-52) 09/05/18 10:06 Alkaline Phosphatase 126 U/L (34-104) H 09/05/18 10:06 Creatine Kinase 82 U/L (30-223) 09/05/18 10:06 Total Protein 7.4 gm/dL (6.0-8.3) 09/05/18 10:06 Albumin 4.1 gm/dL (3.7-5.3) 09/05/18 10:06 Globulin 3.3 gm/dL 09/05/18 10:06 Albumin/Globulin Ratio 1.2 (1.0-1.8) 09/05/18 10:06 Triglycerides 97 mg/dL (<150) 09/05/18 20:05 Cholesterol 204 mg/dL (<200) H 09/05/18 20:05 LDL Cholesterol Direct 126 mg/dL (75-193) 09/05/18 20:05 HDL Cholesterol 56 mg/dL (23-92) 09/05/18 20:05 TSH 0.94 uIU/ml (0.34-5.60) 09/05/18 10:06 Salicylates < 25.0 mg/L (30.0-100.0) L 09/05/18 10:06 Acetaminophen < 10.0 ug/mL (10.0-30.0) L 09/05/18 10:06 Ethyl Alcohol < 10 mg/dL (0-10) 09/05/18 10:06 RPR NONREACTIVE (NONREACTIVE) 09/05/18 10:06 - Physical Exam Vitals and I&O: Vital Signs Temp 97.4 F 09/09/18 05:44 Pulse 70 09/09/18 05:44 Resp 19 09/09/18 05:44 BP 120/68 09/09/18 05:44 Pulse Ox 95 09/09/18 05:44 Intake & Output 09/08/18 09/09/18 09/09/18 18:59 06:59 18:59 Intake Total 240 Balance 240 Intake: Oral 240 Other: # Voids 2 # Bowel Movements 0 Active Medications: Current Medications Acetaminophen (Tylenol) 650 mg PO Q4HR PRN PRN Reason: Mild Pain / Temp above 100 Stop: 11/04/18 22:59 Al Hydrox/Mg Hydrox/Simethicone (Maalox) 30 ml PO Q4HR PRN PRN Reason: GI DISTRESS Stop: 11/04/18 22:59 Aspirin (Aspirin Chewable) 81 mg PO DAILY [facility] Stop: 11/05/18 11:59 Last Admin: 09/09/18 08:25 Dose: 81 mg Donepezil HCl (Aricept) 5 mg PO HS [facility] Stop: 11/05/18 20:59 Last Admin: 09/08/18 20:54 Dose: 5 mg Lactulose (Cephulac) 20 gm PO BID [facility] Stop: 11/05/18 11:59 Last Admin: 09/09/18 08:26 Dose: 20 gm Lorazepam (Ativan) 0.5 mg PO Q4HR PRN; Protocol PRN Reason: Anxiety Stop: 10/05/18 22:59 Last Admin: 09/09/18 00:58 Dose: 0.5 mg Magnesium Hydroxide (Milk Of Magnesia) 30 ml PO HS PRN PRN Reason: Constipation Magnesium Oxide (Mag-Oxide) 400 mg PO DAILY [facility] Stop: 11/06/18 08:59 Last Admin: 09/09/18 08:26 Dose: 400 mg Metoprolol Tartrate (Lopressor) 25 mg PO Q12HR [facility] Stop: 11/05/18 11:59 Last Admin: 09/09/18 08:26 Dose: Not Given Quetiapine Fumarate (Seroquel) 12.5 mg PO HS [facility]; Protocol Stop: 11/05/18 20:59 Last Admin: 09/08/18 20:57 Dose: 12.5 mg Zolpidem Tartrate (Ambien) 5 mg PO HS PRN PRN Reason: Insomnia Stop: 11/04/18 22:59 Last Admin: 09/08/18 20:57 Dose: 5 mg General: demented HEENT: NC/AT, PERRLA Neck: Supple Lungs: congested Cardiovascular: RRR, Normal S1, Normal S2, with murmur Abdomen: soft, non-distended, positive bowel sound Extremities: excoriation, contracture Internal Medicine Assmt/Plan - Assessment Assessment: ASSESSMENT AND PLAN: Leukocytosis, thrombocytosis, stroke with left-sided weakness, gastritis, COPD, generalized contractures, asthma, hyperglycemia, dementia. - Plan Plan: PLAN: Continue the patient on nutrition support. We will monitor for any signs or symptoms of infection. Continue laxative. Continue beta tir. We will continue to follow the patient with Dr. Abhi fisher.
--- NOTE | 2018-09-10 06:15 | Progress Notes ---
DATE: 09/09/2018 PSYCHIATRIC PROGRESS NOTE SUBJECTIVE: Staff was spoken to. The patient is interviewed. Mood is noted to be irritable. Affect is constricted. The patient's insight and judgment noted to be improving. Impulse control seems to be fair today. The patient has been able to tolerate the Seroquel and also her agitated behavior is reported today. Sleep and appetite are noted to be improving. ASSESSMENT: The patient's impulsivity is getting under control. PLAN: To continue the patient with supportive therapy. I encouraged the patient to verbalize the concerns rather than to act out. JOB# [id number]
[2018-09-10] MEDS: Lactulose 10 Gm/15 mL 30mL UDC PO SCH ×2 (08:52→16:17)
[2018-09-10] MEDS: Aspirin 81mg Chewable Tab PO SCH (08:52)
[2018-09-10] MEDS: Multivitamin w/ Minerals Tab PO SCH (08:53)
--- NOTE | 2018-09-10 09:25 | Progress Notes ---
DATE: 09/09/2018 PSYCHOLOGY PROGRESS NOTE SUBJECTIVE: The patient is seen and is interviewed. Case is discussed with staff. The patient presents as friendly and less irritable. The patient continued to verbalize suspicious thoughts regarding her hospitalization and people that were involved in her care. Staff reports that the patient seems to be stabilizing and is compliant with her medication. OBJECTIVE: Mood is less irritable. Affect is mood congruent and appropriate. Thought process shows to be confused. There is some paranoid ideation present. The patient denied any hallucinations or delusions. The patient has been compliant with her p.o. medication. ASSESSMENT AND PLAN: Staff is monitoring the patient's behavior. There have been no aggressive behaviors and no care refusal. We will continue to provide supportive psychotherapeutic interventions including remotivation for the patient to stay compliant with her care and treatment. We will provide reality orientation, differentiation and integration. We will provide coping strategies for phase of life issues. We will follow up in two days to continue the present treatment if the patient remains on the unit. JOB# [id number] MARIE
--- NOTE | 2018-09-10 12:32 | Internal Medicine Prog Note ---
Internal Medicine Subjective - Subjective Patient seen and examined:: with staff, chart reviewed Patient is:: asleep, non-verbal, non-interactive, in bed, confused Per staff patient has:: no adverse event, no episodes of fall, confused, tolerating meds Internal Medicine Objective - Results Result Diagrams: 09/05/18 10:06 09/05/18 10:06 Recent Labs: Laboratory Last Values WBC 12.4 Th/cmm (4.8-10.8) H 09/05/18 10:06 RBC 5.40 Mil/cmm (3.80-5.10) H 09/05/18 10:06 Hgb 16.8 gm/dL (12-16) 09/05/18 10:06 Hct 49.5 % (41.0-60) 09/05/18 10:06 MCV 91.5 fl (81-100) 09/05/18 10:06 MCH 31.1 pg (27.0-31.0) H 09/05/18 10:06 MCHC Differential 34.0 pg (28.0-36.0) 09/05/18 10:06 RDW 12.6 % (11.5-20.0) 09/05/18 10:06 Plt Count 692 Th/cmm (150-400) H 09/05/18 10:06 MPV 7.1 fl 09/05/18 10:06 Neutrophils % 78.0 % (40.0-80.0) 09/05/18 10:06 Lymphocytes % 15.7 % (20.0-50.0) L 09/05/18 10:06 Monocytes % 5.2 % (2.0-10.0) 09/05/18 10:06 Eosinophils % 1.1 % (0.0-5.0) 09/05/18 10:06 Basophils % 0.0 % (0.0-2.0) 09/05/18 10:06 Sodium 139 mEq/L (136-145) 09/05/18 10:06 Potassium 3.9 mEq/L (3.5-5.1) 09/05/18 10:06 Chloride 107 mEq/L (98-107) 09/05/18 10:06 Carbon Dioxide 24.0 mEq/L (21.0-31.0) 09/05/18 10:06 Anion Gap 11.9 (7.0-16.0) 09/05/18 10:06 BUN 22 mg/dL (7-25) 09/05/18 10:06 Creatinine 0.9 mg/dL (0.6-1.2) 09/05/18 10:06 Est GFR ( Amer) > 60.0 ml/min (>90) 09/05/18 10:06 Est GFR (Non-Af Amer) > 60.0 ml/min 09/05/18 10:06 BUN/Creatinine Ratio 24.4 09/05/18 10:06 Glucose 111 mg/dL (70-105) H 09/05/18 10:06 Calcium 9.7 mg/dL (8.6-10.3) 09/05/18 10:06 Total Bilirubin 0.4 mg/dL (0.3-1.0) 09/05/18 10:06 AST 19 U/L (13-39) 09/05/18 10:06 ALT 19 U/L (7-52) 09/05/18 10:06 Alkaline Phosphatase 126 U/L (34-104) H 09/05/18 10:06 Creatine Kinase 82 U/L (30-223) 09/05/18 10:06 Total Protein 7.4 gm/dL (6.0-8.3) 09/05/18 10:06 Albumin 4.1 gm/dL (3.7-5.3) 09/05/18 10:06 Globulin 3.3 gm/dL 09/05/18 10:06 Albumin/Globulin Ratio 1.2 (1.0-1.8) 09/05/18 10:06 Triglycerides 97 mg/dL (<150) 09/05/18 20:05 Cholesterol 204 mg/dL (<200) H 09/05/18 20:05 LDL Cholesterol Direct 126 mg/dL (75-193) 09/05/18 20:05 HDL Cholesterol 56 mg/dL (23-92) 09/05/18 20:05 TSH 0.94 uIU/ml (0.34-5.60) 09/05/18 10:06 Salicylates < 25.0 mg/L (30.0-100.0) L 09/05/18 10:06 Acetaminophen < 10.0 ug/mL (10.0-30.0) L 09/05/18 10:06 Ethyl Alcohol < 10 mg/dL (0-10) 09/05/18 10:06 RPR NONREACTIVE (NONREACTIVE) 09/05/18 10:06 - Physical Exam Vitals and I&O: Vital Signs Temp 98.0 F 09/10/18 05:33 Pulse 61 09/10/18 05:33 Resp 18 09/10/18 05:33 BP 101/67 09/10/18 05:33 Pulse Ox 96 09/10/18 05:33 Intake & Output 09/09/18 09/10/18 09/10/18 18:59 06:59 18:59 Intake Total 960 240 Balance 960 240 Intake: Oral 960 240 Other: # Voids 3 1 # Bowel Movements 1 0 Active Medications: Current Medications Acetaminophen (Tylenol) 650 mg PO Q4HR PRN PRN Reason: Mild Pain / Temp above 100 Stop: 11/04/18 22:59 Al Hydrox/Mg Hydrox/Simethicone (Maalox) 30 ml PO Q4HR PRN PRN Reason: GI DISTRESS Stop: 11/04/18 22:59 Aspirin (Aspirin Chewable) 81 mg PO DAILY [facility] Stop: 11/05/18 11:59 Last Admin: 09/10/18 08:52 Dose: 81 mg Donepezil HCl (Aricept) 5 mg PO HS [facility] Stop: 11/05/18 20:59 Last Admin: 09/09/18 20:44 Dose: 5 mg Lactulose (Cephulac) 20 gm PO BID [facility] Stop: 11/05/18 11:59 Last Admin: 09/10/18 08:52 Dose: 20 gm Lorazepam (Ativan) 0.5 mg PO Q4HR PRN; Protocol PRN Reason: Anxiety Stop: 10/05/18 22:59 Last Admin: 09/09/18 00:58 Dose: 0.5 mg Magnesium Hydroxide (Milk Of Magnesia) 30 ml PO HS PRN PRN Reason: Constipation Magnesium Oxide (Mag-Oxide) 400 mg PO DAILY [facility] Stop: 11/06/18 08:59 Last Admin: 09/10/18 08:53 Dose: 400 mg Metoprolol Tartrate (Lopressor) 25 mg PO Q12HR [facility] Stop: 11/05/18 11:59 Last Admin: 09/10/18 08:53 Dose: Not Given Quetiapine Fumarate (Seroquel) 12.5 mg PO HS [facility]; Protocol Stop: 11/05/18 20:59 Last Admin: 09/09/18 20:45 Dose: 12.5 mg Zolpidem Tartrate (Ambien) 5 mg PO HS PRN PRN Reason: Insomnia Stop: 11/04/18 22:59 Last Admin: 09/09/18 20:45 Dose: 5 mg General: demented HEENT: NC/AT, PERRLA Neck: Supple Lungs: congested Cardiovascular: RRR, Normal S1, Normal S2, with murmur Abdomen: soft, non-distended, positive bowel sound Extremities: excoriation, contracture Internal Medicine Assmt/Plan - Assessment Assessment: ASSESSMENT AND PLAN: Leukocytosis, thrombocytosis, stroke with left-sided weakness, gastritis, COPD, generalized contractures, asthma, hyperglycemia, dementia. - Plan Plan: PLAN: Continue the patient on nutrition support. We will monitor for any signs or symptoms of infection. Continue laxative. Continue beta tri. We will continue to follow the patient with Dr. Abhi fisher.
[2018-09-11] MEDS: Lactulose 10 Gm/15 mL 30mL UDC PO SCH ×2 (08:53→16:57)
[2018-09-11] MEDS: Multivitamin w/ Minerals Tab PO SCH (08:54)
[2018-09-11] MEDS: Aspirin 81mg Chewable Tab PO SCH (08:54)
--- NOTE | 2018-09-11 12:42 | Internal Medicine Prog Note ---
Internal Medicine Subjective - Subjective Patient seen and examined:: with staff, chart reviewed Patient is:: asleep, non-verbal, non-interactive, in bed, confused Per staff patient has:: no adverse event, no episodes of fall, confused, tolerating meds Internal Medicine Objective - Results Result Diagrams: 09/05/18 10:06 09/05/18 10:06 Recent Labs: Laboratory Last Values WBC 12.4 Th/cmm (4.8-10.8) H 09/05/18 10:06 RBC 5.40 Mil/cmm (3.80-5.10) H 09/05/18 10:06 Hgb 16.8 gm/dL (12-16) 09/05/18 10:06 Hct 49.5 % (41.0-60) 09/05/18 10:06 MCV 91.5 fl (81-100) 09/05/18 10:06 MCH 31.1 pg (27.0-31.0) H 09/05/18 10:06 MCHC Differential 34.0 pg (28.0-36.0) 09/05/18 10:06 RDW 12.6 % (11.5-20.0) 09/05/18 10:06 Plt Count 692 Th/cmm (150-400) H 09/05/18 10:06 MPV 7.1 fl 09/05/18 10:06 Neutrophils % 78.0 % (40.0-80.0) 09/05/18 10:06 Lymphocytes % 15.7 % (20.0-50.0) L 09/05/18 10:06 Monocytes % 5.2 % (2.0-10.0) 09/05/18 10:06 Eosinophils % 1.1 % (0.0-5.0) 09/05/18 10:06 Basophils % 0.0 % (0.0-2.0) 09/05/18 10:06 Sodium 139 mEq/L (136-145) 09/05/18 10:06 Potassium 3.9 mEq/L (3.5-5.1) 09/05/18 10:06 Chloride 107 mEq/L (98-107) 09/05/18 10:06 Carbon Dioxide 24.0 mEq/L (21.0-31.0) 09/05/18 10:06 Anion Gap 11.9 (7.0-16.0) 09/05/18 10:06 BUN 22 mg/dL (7-25) 09/05/18 10:06 Creatinine 0.9 mg/dL (0.6-1.2) 09/05/18 10:06 Est GFR ( Amer) > 60.0 ml/min (>90) 09/05/18 10:06 Est GFR (Non-Af Amer) > 60.0 ml/min 09/05/18 10:06 BUN/Creatinine Ratio 24.4 09/05/18 10:06 Glucose 111 mg/dL (70-105) H 09/05/18 10:06 Calcium 9.7 mg/dL (8.6-10.3) 09/05/18 10:06 Total Bilirubin 0.4 mg/dL (0.3-1.0) 09/05/18 10:06 AST 19 U/L (13-39) 09/05/18 10:06 ALT 19 U/L (7-52) 09/05/18 10:06 Alkaline Phosphatase 126 U/L (34-104) H 09/05/18 10:06 Creatine Kinase 82 U/L (30-223) 09/05/18 10:06 Total Protein 7.4 gm/dL (6.0-8.3) 09/05/18 10:06 Albumin 4.1 gm/dL (3.7-5.3) 09/05/18 10:06 Globulin 3.3 gm/dL 09/05/18 10:06 Albumin/Globulin Ratio 1.2 (1.0-1.8) 09/05/18 10:06 Triglycerides 97 mg/dL (<150) 09/05/18 20:05 Cholesterol 204 mg/dL (<200) H 09/05/18 20:05 LDL Cholesterol Direct 126 mg/dL (75-193) 09/05/18 20:05 HDL Cholesterol 56 mg/dL (23-92) 09/05/18 20:05 TSH 0.94 uIU/ml (0.34-5.60) 09/05/18 10:06 Salicylates < 25.0 mg/L (30.0-100.0) L 09/05/18 10:06 Acetaminophen < 10.0 ug/mL (10.0-30.0) L 09/05/18 10:06 Ethyl Alcohol < 10 mg/dL (0-10) 09/05/18 10:06 RPR NONREACTIVE (NONREACTIVE) 09/05/18 10:06 - Physical Exam Vitals and I&O: Vital Signs Temp 98.4 F 09/10/18 20:04 Pulse 99 09/11/18 08:53 Resp 18 09/10/18 20:04 BP 139/91 09/11/18 08:53 Pulse Ox 97 09/10/18 20:04 Intake & Output 09/10/18 09/11/18 09/11/18 18:59 06:59 18:59 Intake Total 800 120 Balance 800 120 Intake: Oral 800 120 Other: # Voids 3 2 # Bowel Movements 1 0 Active Medications: Current Medications Acetaminophen (Tylenol) 650 mg PO Q4HR PRN PRN Reason: Mild Pain / Temp above 100 Stop: 11/04/18 22:59 Al Hydrox/Mg Hydrox/Simethicone (Maalox) 30 ml PO Q4HR PRN PRN Reason: GI DISTRESS Stop: 11/04/18 22:59 Aspirin (Aspirin Chewable) 81 mg PO DAILY [facility] Stop: 11/05/18 11:59 Last Admin: 09/11/18 08:54 Dose: 81 mg Donepezil HCl (Aricept) 5 mg PO HS BEREKET Stop: 11/05/18 20:59 Last Admin: 09/10/18 21:35 Dose: 5 mg Lactulose (Cephulac) 20 gm PO BID BEREKET Stop: 11/05/18 11:59 Last Admin: 09/11/18 08:53 Dose: 20 gm Lorazepam (Ativan) 0.5 mg PO Q4HR PRN; Protocol PRN Reason: Anxiety Stop: 10/05/18 22:59 Last Admin: 09/09/18 00:58 Dose: 0.5 mg Magnesium Hydroxide (Milk Of Magnesia) 30 ml PO HS PRN PRN Reason: Constipation Magnesium Oxide (Mag-Oxide) 400 mg PO DAILY B[facility]KET Stop: 11/06/18 08:59 Last Admin: 09/11/18 08:54 Dose: 400 mg Metoprolol Tartrate (Lopressor) 25 mg PO Q12HR BEREKET Stop: 11/05/18 11:59 Last Admin: 09/11/18 08:53 Dose: 25 mg Quetiapine Fumarate (Seroquel) 12.5 mg PO HS BEREKET; Protocol Stop: 11/05/18 20:59 Last Admin: 09/10/18 21:34 Dose: 12.5 mg Zolpidem Tartrate (Ambien) 5 mg PO HS PRN PRN Reason: Insomnia Stop: 11/04/18 22:59 Last Admin: 09/10/18 21:35 Dose: 5 mg General: demented HEENT: NC/AT, PERRLA Neck: Supple Lungs: congested Cardiovascular: RRR, Normal S1, Normal S2, with murmur Abdomen: soft, non-distended, positive bowel sound Extremities: excoriation, contracture Internal Medicine Assmt/Plan - Assessment Assessment: ASSESSMENT AND PLAN: Leukocytosis, thrombocytosis, stroke with left-sided weakness, gastritis, COPD, generalized contractures, asthma, hyperglycemia, dementia. - Plan Plan: PLAN: Continue the patient on nutrition support. We will monitor for any signs or symptoms of infection. Continue laxative. Continue beta tri. We will continue to follow the patient with you, Dr. Moe. Nutritional Asmnt/Malnutr-PDOC - Dietary Evaluation Malnutrition Findings (Please click <Entered> for more info): Nutritional Asmnt/Malnutrition Start: 09/10/18 15: 28 Text: Status: Complete Freq: Protocol: Document 09/10/18 15:28 [email or web address] (Rec: 09/10/18 15:34 [email or web address]) Nutritional Asmnt/Malnutrition Patient General Information Nutritional Screening Low Risk Diagnosis psychosis Pertinent Medical Hx/Surgical Hx CVA with left sided weakness, gastritis, COPD, hypercholesterolemia, dementia Subjective Information Pt stated good appetite and po intake, NKFA, tolerating diet with no chew/swallow difficulty, unable to recall ht or UBW, declined to provide food preferences. RN reported self-feeding, no n/v, BM today. Current Diet Order/ Nutrition Support mechanical soft WILMER Patient / S.O Not Indicated Pertinent Medications Maalox, lactulose, Mag-oxide, PRN MOM Pertinent Labs Glu 111, AlkPhos 126, Chol 204 Nutritional Hx/Data Height 1.68 m Height (Calculated Centimeters) 167.6 Current Weight (lbs) 53.07 kg Weight (Calculated Kilograms) 53.1 Weight (Calculated Grams) 34653.3 [place] Body Weight 130 lb Body Mass Index (BMI) 18.8 Weight Status Approriate GI Symptoms GI Symptoms None Difficult in: None Food Allergies No Skin Integrity/Comment: intact, Kleber Perkins Current %PO Good (75-100%) Estimated Nutritional Goals BEE in Kcals: Using Current wt Calories/Kcals/Kg 25-30 Kcals Calculated 3199-4350 Protein: Using Current wt Protein g/k-1.2 Protein Calculated 53-64 Fluid: ml 9421-3575 Nutritional Problem 1. Problem Problem Altered nutrition related labs Etiology medical condition Signs/Symptoms: AlkPhos 126, Chol 204, Glu 111 Intervention/Recommendation Comments 1. continue mechanical soft, WILMER diet at this time 2. Monitor PO intake, wt, labs and skin integrity 3. F/U as low risk in 7 days Expected Outcomes/Goals Expected Outcomes/Goals 1. PO intake to meet at least 75% of nutritional needs. 2. Wt stability, skin to remain intact, labs to approach WNL. Blaire Cotton RD
--- NOTE | 2018-09-11 20:19 | Progress Notes ---
DATE: 09/10/2018 SUBJECTIVE: Staff was spoken to. The patient is interviewed. Mood is noted to be irritable. Affect is constricted. The patient's irritability and anger has been coming down. No major side effects of medications are noted. The patient has been able to verbalize the concerns rather than to act out. ASSESSMENT: The patient is less irritable and impulsivity is coming under control. PLAN: To continue the patient with the current medications and follow. JOB# [id number]
--- NOTE | 2018-09-12 03:16 | Progress Notes ---
DATE: 09/11/2018 PSYCHOLOGY PROGRESS NOTE SUBJECTIVE: The patient is seen and is interviewed. Case is discussed with staff. The patient presents as friendly and cooperative. Staff reports the patient has been eating approximately 30% of her meals and is taking her p.o. medication. There have been no overt exhibits of agitated behavior or poor impulse control. The patient is compliant with her care and treatment. OBJECTIVE: Mood is less irritable and normalizing. Affect is constricted. Thought process shows to be confused. The patient denied any hallucinations or delusions. Impulse control is improving. The patient's insight and judgment seem to be improving with respect to understanding the need to be compliant with her medications. Both sleep and appetite are improving. ASSESSMENT AND PLAN: The patient is possibly approaching baseline and stabilization. We will continue to provide supportive psychotherapy to include positive reinforcement for following through and staying compliant with her care and treatment. We will provide coping strategies for phase of life issues as well as for chronic mental illness. We will follow up in 2 days to continue the present treatment, if the patient is remains admitted on the unit. [facility]# [id number] MARIE
--- NOTE | 2018-09-12 08:28 | Progress Notes ---
DATE: 09/11/2018 SUBJECTIVE: Staff was spoken to. The patient is interviewed. Mood is noted to be less irritable. Affect is appropriate. Insight and judgment is noted to be improving. Impulse control is noted to be fair. No side effects to the medications are noted. The patient has been coping well so far, no major side effects to the Seroquel are noted. No aggressive behavior is noted. ASSESSMENT: The patient is stabilizing. PLAN: To continue the patient with the current medications and possibly discharge the patient tomorrow for followup on an outpatient basis. JOB# [id number]
[2018-09-12] MEDS: Multivitamin w/ Minerals Tab PO SCH (09:30)
[2018-09-12] MEDS: Lactulose 10 Gm/15 mL 30mL UDC PO SCH (09:30)
[2018-09-12] MEDS: Aspirin 81mg Chewable Tab PO SCH (09:30)
--- NOTE | 2018-09-12 12:33 | Internal Medicine Prog Note ---
Internal Medicine Subjective - Subjective Patient seen and examined:: with staff, chart reviewed Patient is:: asleep, non-verbal, non-interactive, in bed, confused Per staff patient has:: no adverse event, no episodes of fall, confused, tolerating meds Internal Medicine Objective - Results Result Diagrams: 09/05/18 10:06 09/05/18 10:06 Recent Labs: Laboratory Last Values WBC 12.4 Th/cmm (4.8-10.8) H 09/05/18 10:06 RBC 5.40 Mil/cmm (3.80-5.10) H 09/05/18 10:06 Hgb 16.8 gm/dL (12-16) 09/05/18 10:06 Hct 49.5 % (41.0-60) 09/05/18 10:06 MCV 91.5 fl (81-100) 09/05/18 10:06 MCH 31.1 pg (27.0-31.0) H 09/05/18 10:06 MCHC Differential 34.0 pg (28.0-36.0) 09/05/18 10:06 RDW 12.6 % (11.5-20.0) 09/05/18 10:06 Plt Count 692 Th/cmm (150-400) H 09/05/18 10:06 MPV 7.1 fl 09/05/18 10:06 Neutrophils % 78.0 % (40.0-80.0) 09/05/18 10:06 Lymphocytes % 15.7 % (20.0-50.0) L 09/05/18 10:06 Monocytes % 5.2 % (2.0-10.0) 09/05/18 10:06 Eosinophils % 1.1 % (0.0-5.0) 09/05/18 10:06 Basophils % 0.0 % (0.0-2.0) 09/05/18 10:06 Sodium 139 mEq/L (136-145) 09/05/18 10:06 Potassium 3.9 mEq/L (3.5-5.1) 09/05/18 10:06 Chloride 107 mEq/L (98-107) 09/05/18 10:06 Carbon Dioxide 24.0 mEq/L (21.0-31.0) 09/05/18 10:06 Anion Gap 11.9 (7.0-16.0) 09/05/18 10:06 BUN 22 mg/dL (7-25) 09/05/18 10:06 Creatinine 0.9 mg/dL (0.6-1.2) 09/05/18 10:06 Est GFR ( Amer) > 60.0 ml/min (>90) 09/05/18 10:06 Est GFR (Non-Af Amer) > 60.0 ml/min 09/05/18 10:06 BUN/Creatinine Ratio 24.4 09/05/18 10:06 Glucose 111 mg/dL (70-105) H 09/05/18 10:06 Calcium 9.7 mg/dL (8.6-10.3) 09/05/18 10:06 Total Bilirubin 0.4 mg/dL (0.3-1.0) 09/05/18 10:06 AST 19 U/L (13-39) 09/05/18 10:06 ALT 19 U/L (7-52) 09/05/18 10:06 Alkaline Phosphatase 126 U/L (34-104) H 09/05/18 10:06 Creatine Kinase 82 U/L (30-223) 09/05/18 10:06 Total Protein 7.4 gm/dL (6.0-8.3) 09/05/18 10:06 Albumin 4.1 gm/dL (3.7-5.3) 09/05/18 10:06 Globulin 3.3 gm/dL 09/05/18 10:06 Albumin/Globulin Ratio 1.2 (1.0-1.8) 09/05/18 10:06 Triglycerides 97 mg/dL (<150) 09/05/18 20:05 Cholesterol 204 mg/dL (<200) H 09/05/18 20:05 LDL Cholesterol Direct 126 mg/dL (75-193) 09/05/18 20:05 HDL Cholesterol 56 mg/dL (23-92) 09/05/18 20:05 TSH 0.94 uIU/ml (0.34-5.60) 09/05/18 10:06 Salicylates < 25.0 mg/L (30.0-100.0) L 09/05/18 10:06 Acetaminophen < 10.0 ug/mL (10.0-30.0) L 09/05/18 10:06 Ethyl Alcohol < 10 mg/dL (0-10) 09/05/18 10:06 RPR NONREACTIVE (NONREACTIVE) 09/05/18 10:06 - Physical Exam Vitals and I&O: Vital Signs Temp 97.2 F 09/12/18 05:55 Pulse 60 09/12/18 05:55 Resp 19 09/12/18 05:55 BP 120/68 09/12/18 05:55 Pulse Ox 98 09/12/18 05:55 Intake & Output 09/11/18 09/12/18 09/12/18 18:59 06:59 18:59 Intake Total 1200 Output Total 2 Balance 1200 -2 Intake: Oral 1200 Output: Urine 2 Other: # Bowel Movements 1 1 Active Medications: Current Medications Acetaminophen (Tylenol) 650 mg PO Q4HR PRN PRN Reason: Mild Pain / Temp above 100 Stop: 11/04/18 22:59 Al Hydrox/Mg Hydrox/Simethicone (Maalox) 30 ml PO Q4HR PRN PRN Reason: GI DISTRESS Stop: 11/04/18 22:59 Aspirin (Aspirin Chewable) 81 mg PO DAILY [facility] Stop: 11/05/18 11:59 Last Admin: 09/11/18 08:54 Dose: 81 mg Donepezil HCl (Aricept) 5 mg PO HS BEREKET Stop: 11/05/18 20:59 Last Admin: 09/11/18 21:12 Dose: 5 mg Lactulose (Cephulac) 20 gm PO BID BEREKET Stop: 11/05/18 11:59 Last Admin: 09/11/18 16:57 Dose: Not Given Lorazepam (Ativan) 0.5 mg PO Q4HR PRN; Protocol PRN Reason: Anxiety Stop: 10/05/18 22:59 Last Admin: 09/09/18 00:58 Dose: 0.5 mg Magnesium Hydroxide (Milk Of Magnesia) 30 ml PO HS PRN PRN Reason: Constipation Magnesium Oxide (Mag-Oxide) 400 mg PO DAILY [facility]EREKET Stop: 11/06/18 08:59 Last Admin: 09/11/18 08:54 Dose: 400 mg Metoprolol Tartrate (Lopressor) 25 mg PO Q12HR BEREKET Stop: 11/05/18 11:59 Last Admin: 09/11/18 21:12 Dose: 25 mg Quetiapine Fumarate (Seroquel) 12.5 mg PO HS BEREKET; Protocol Stop: 11/05/18 20:59 Last Admin: 09/11/18 21:12 Dose: 12.5 mg Zolpidem Tartrate (Ambien) 5 mg PO HS PRN PRN Reason: Insomnia Stop: 11/04/18 22:59 Last Admin: 09/10/18 21:35 Dose: 5 mg General: demented HEENT: NC/AT, PERRLA Neck: Supple Lungs: congested Cardiovascular: RRR, Normal S1, Normal S2, with murmur Abdomen: soft, non-distended, positive bowel sound Extremities: excoriation, contracture Internal Medicine Assmt/Plan - Assessment Assessment: ASSESSMENT AND PLAN: Leukocytosis, thrombocytosis, stroke with left-sided weakness, gastritis, COPD, generalized contractures, asthma, hyperglycemia, dementia. - Plan Plan: PLAN: Continue the patient on nutrition support. We will monitor for any signs or symptoms of infection. Continue laxative. Continue beta tri. We will continue to follow the patient with you, Dr. Moe. meds renewed Nutritional Asmnt/Malnutr-PDOC - Dietary Evaluation Malnutrition Findings (Please click <Entered> for more info): Nutritional Asmnt/Malnutrition Start: 09/10/18 15: 28 Text: Status: Complete Freq: Protocol: Document 09/10/18 15:28 [email or web address].[email or web address] (Rec: 09/10/18 15:34 [email or web address]) Nutritional Asmnt/Malnutrition Patient General Information Nutritional Screening Low Risk Diagnosis psychosis Pertinent Medical Hx/Surgical Hx CVA with left sided weakness, gastritis, COPD, hypercholesterolemia, dementia Subjective Information Pt stated good appetite and po intake, NKFA, tolerating diet with no chew/swallow difficulty, unable to recall ht or UBW, declined to provide food preferences. RN reported self-feeding, no n/v, BM today. Current Diet Order/ Nutrition Support mechanical soft WILMER Patient / S.O Not Indicated Pertinent Medications Maalox, lactulose, Mag-oxide, PRN MOM Pertinent Labs Glu 111, AlkPhos 126, Chol 204 Nutritional Hx/Data Height 1.68 m Height (Calculated Centimeters) 167.6 Current Weight (lbs) 53.07 kg Weight (Calculated Kilograms) 53.1 Weight (Calculated Grams) 17616.3 [place] Body Weight 130 lb Body Mass Index (BMI) 18.8 Weight Status Approriate GI Symptoms GI Symptoms None Difficult in: None Food Allergies No Skin Integrity/Comment: Kleber leon Current %PO Good (75-100%) Estimated Nutritional Goals BEE in Kcals: Using Current wt Calories/Kcals/Kg 25-30 Kcals Calculated 5597-7406 Protein: Using Current wt Protein g/k-1.2 Protein Calculated 53-64 Fluid: ml 8724-7136 Nutritional Problem 1. Problem Problem Altered nutrition related labs Etiology medical condition Signs/Symptoms: AlkPhos 126, Chol 204, Glu 111 Intervention/Recommendation Comments 1. continue mechanical soft, WILMER diet at this time 2. Monitor PO intake, wt, labs and skin integrity 3. F/U as low risk in 7 days Expected Outcomes/Goals Expected Outcomes/Goals 1. PO intake to meet at least 75% of nutritional needs. 2. Wt stability, skin to remain intact, labs to approach WNL. Blaire Cotton RD
--- NOTE | 2018-09-13 04:06 | Progress Notes ---
DATE: 09/12/2018 SUBJECTIVE: Staff was spoken to. The patient is interviewed. Mood is noted to be anxious. Affect is appropriate. Not suicidal or homicidal. Insight and judgment are noted to be improving. Impulse control is noted to be fair. Coping skills are also noted to be fair. No side effects to the medications are noted. The patient has been able to verbalize the concerns rather than to act out. ASSESSMENT: The patient is stabilizing. PLAN: To discharge the patient today for followup on outpatient basis. JOB# [id number]
== END 2018-09-12 17:10 | DRG 885 ==
LOC: ER 19:03 → GERO2 21:15
DX: F29 Unspecified psychosis not due to a substance or known physiological condition (principal); Z93.0 Tracheostomy status; F03.91 Unspecified dementia, unspecified severity, with behavioral disturbance; I69.354 Hemiplegia and hemiparesis following cerebral infarction affecting left non-dominant side; I10 Essential (primary) hypertension; J44.9 Chronic obstructive pulmonary disease, unspecified; E78.00 Pure hypercholesterolemia, unspecified; D47.3 Essential (hemorrhagic) thrombocythemia; R73.9 Hyperglycemia, unspecified; F32.9 Major depressive disorder, single episode, unspecified; Z88.0 Allergy status to penicillin
CPT/HCPCS: 36415-UA; 71045-TC; 80053-TC; 80061-TC; 80320-TC; 80329-TC; 82550-TC; 83036-90; 84443-TC; 85025-TC; 86592-TC; 93005

== ENCOUNTER 2019-01-17 20:20 | Inpatient (IN) | payer MEDICARE, MEDICAID ==
[2019-01-18] MEDS: Multivitamin Tab PO SCH (10:07)
[2019-01-18] MEDS: Lactulose 10 Gm/15 mL 30mL UDC PO SCH ×2 (10:07→17:13)
[2019-01-18] MEDS: Aspirin 81mg Chewable Tab PO SCH (10:07)
--- NOTE | 2019-01-18 15:52 | History & Physical ---
ADMIT DATE: 01/17/2019 REASON FOR CONSULTATION: Medical management and clearance and the patient admitted to inpatient unit. HISTORY OF PRESENT ILLNESS: This is a 62-year-old -[place] female with history of COPD, hypercholesterolemia, hypertension, psych disorder, dementia, malnutrition, and gastritis, admitted from nursing facility secondary to decompensation of her psych disorder. The patient is a poor historian. Denies any chest pain or shortness of breath. PAST MEDICAL HISTORY: As mentioned in history of present illness. PAST SURGICAL HISTORY: Denies surgeries in the past. ALLERGIES: PENICILLIN. MEDICATIONS: Aspirin, lactulose, magnesium, metoprolol, and multivitamins. FAMILY HISTORY: Noncontributory. SOCIAL HISTORY: The patient lives in a skilled nursing. The patient requiring 24-hour total care. REVIEW OF SYSTEMS: This is limited secondary to pain, comatose state. We will try to obtain more detailed review of system at a later date by family members. There is a conservator, Aixa Vences, number [phone]. We will also try to get information from nursing staff at [facility], as well as from Dr. Moe who has known the patient from previous admission. PHYSICAL EXAMINATION: VITAL SIGNS: Blood pressure ____, respirations 18, pulse 81, temperature 97.7, previously blood pressure was 140/80. GENERAL: Elderly female, appears chronically ill. Bitemporal wasting. LUNGS: Decreased breath sounds, few rhonchi. HEART: Regular rate and rhythm. Systolic ejection murmur. ABDOMEN: Soft and positive bowel sounds. EXTREMITIES: Positive excoriation bilateral lower extremity. LABORATORY DATA: WBC 12, hemoglobin 17, and platelets 609. Sodium 143, potassium 4.5, BUN 22, creatinine 0.9, blood sugar 108. Cholesterol 229. ASSESSMENT AND PLAN: Chronic obstructive pulmonary disease, hypertension, hypercholesterolemia, psych disorder, dementia, malnutrition, erythrocytosis, leukocytosis of unclear etiology, and renal insufficiency. The patient to increase fluid and adjust the patient's antihypertensive medication. We will put the patient on nutrition support and continue bronchodilator treatment as needed basis. We will continue to monitor the patient closely. JOB# [id number]
[2019-01-19] MEDS: Multivitamin Tab PO SCH (09:57)
[2019-01-19] MEDS: Lactulose 10 Gm/15 mL 30mL UDC PO SCH ×2 (09:57→17:32)
[2019-01-19] MEDS: Aspirin 81mg Chewable Tab PO SCH (09:57)
--- NOTE | 2019-01-19 12:41 | Internal Medicine Prog Note ---
Internal Medicine Subjective - Subjective Service Date: 01/19/19 Patient seen and examined:: with staff Patient is:: awake, non-verbal Per staff patient has:: tolerating meds Internal Medicine Objective - Results Recent Labs: Laboratory Last Values POC Glucose 153 MG/DL (70 - 105) H 01/17/19 22:05 - Physical Exam Vitals and I&O: Vital Signs Temp 97.3 F 01/19/19 06:20 Pulse 73 01/19/19 09:57 Resp 19 01/19/19 08:00 BP 114/76 01/19/19 09:57 Pulse Ox 96 01/19/19 06:20 Intake & Output 01/18/19 01/19/19 01/19/19 18:59 06:59 18:59 Intake Total 850 240 Output Total 1 Balance 850 239 Intake: Oral 850 240 Output: Urine/Stool Mix 1 Other: # Voids 4 1 # Bowel Movements 1 1 Active Medications: Current Medications Acetaminophen (Tylenol) 650 mg PO Q4H PRN PRN Reason: Mild Pain / Temp above 100 Stop: 03/18/19 23:00 Aspirin (Aspirin Chewable) 81 mg PO DAILY BEREKET Stop: 03/19/19 08:59 Last Admin: 01/19/19 09:57 Dose: 81 mg Donepezil HCl (Aricept) 5 mg PO HS BEREKET Stop: 03/19/19 20:59 Last Admin: 01/18/19 21:57 Dose: 5 mg Lactulose (Cephulac) 20 gm PO BID BEREKET Stop: 03/19/19 08:59 Last Admin: 01/19/19 09:57 Dose: 20 gm Lorazepam (Ativan) 0.5 mg PO Q4H PRN; Protocol PRN Reason: Agitation Stop: 03/18/19 23:00 Magnesium Oxide (Mag-Oxide) 400 mg PO DAILY BEREKET Stop: 03/19/19 08:59 Last Admin: 01/19/19 09:57 Dose: 400 mg Metoprolol Succinate (Toprol Xl) 12.5 mg PO BID BEREKET Stop: 03/19/19 16:59 Last Admin: 01/19/19 09:57 Dose: 12.5 mg Multivitamins/Vitamin C (Theragran) 1 tab PO DAILY [facility] Stop: 03/19/19 08:59 Last Admin: 01/19/19 09:57 Dose: 1 tab Quetiapine Fumarate (Seroquel) 12.5 mg PO HS BEREKET; Protocol Stop: 03/19/19 20:59 Last Admin: 01/18/19 22:08 Dose: 12.5 mg Zolpidem Tartrate (Ambien) 5 mg PO HS PRN PRN Reason: Insomnia Stop: 03/18/19 23:00 General: alert HEENT: NC/AT, PERRLA Neck: Supple Lungs: CTAB Cardiovascular: RRR, Normal S1, Normal S2 Abdomen: soft, non-distended, positive bowel sound Extremities: excoriation Neurological: unable to follow command Internal Medicine Assmt/Plan - Assessment Assessment: Copd hypercholesteremia psych disorder dementia malnutrition eythrocytosis renal insufficiency - Plan Plan: will adjust anti-hypertensive medications as needed ppi increase fluid prn bronchodilator continue current plan of care
--- NOTE | 2019-01-20 04:30 | Psychiatric Evaluation ---
DATE OF SERVICE: 01/17/2019 INITIAL PSYCHIATRIC EVALUATION CHIEF COMPLAINT: "I'm fine." HISTORY OF PRESENT ILLNESS: The patient is a 63-year-old female with chronic history of mental illness and was sent from a halfway facility for increased agitation, anger outburst episodes of refusing care. The patient has been more confused and the patient was evaluated, now admitted after being medically cleared in the Emergency Room at [facility]. PAST PSYCHIATRIC HISTORY: Multiple hospitalizations, history of schizophrenia and dementia. PAST MEDICAL HISTORY: As per H and P. PSYCHOSOCIAL HISTORY: The patient resides at [facility] and requires complete care. SUBSTANCE ABUSE HISTORY: Denied. Noncontributory. MENTAL STATUS EXAMINATION: The patient made fair eye contact. Speech fluent, short sentences at times, irrelevant to topic. Thought process somewhat disorganized. The patient is oriented to being in some kind of hospital, not oriented to time or situation. The patient was with some paranoia and agitation at times. The patient's strength, the patient is passively accepting treatment. The patient's weakness, lack of insight. ASSESSMENT: Schizoaffective disorder and dementia, Alzheimer's type versus not otherwise specified. MEDICAL: As per medical history. PLAN: We will admit the patient for hospitalization. We will start individual and group therapy. The patient is currently on Seroquel 12.5 mg p.o. at bedtime, which is a small dose. The patient also has grinding in her teeth, this has been chronic and probably from chronic use of antipsychotics. We will monitor closely. Consider increasing Seroquel dose. ESTIMATED LENGTH OF STAY: 5-7 days. CRITERIA FOR DISCHARGE: Improved condition. No agitation or aggressive behavior and safe disposition, outpatient treatment plan. JOB# [id number]
[2019-01-20] MEDS: Aspirin 81mg Chewable Tab PO SCH (09:02)
[2019-01-20] MEDS: Multivitamin Tab PO SCH (09:02)
[2019-01-20] MEDS: Lactulose 10 Gm/15 mL 30mL UDC PO SCH ×2 (09:03→17:31)
--- NOTE | 2019-01-20 10:58 | Progress Notes ---
DATE: 01/19/2019 SUBJECTIVE: The patient was seen, remains anxious, guarded, keeping to herself, episodes of irritability. The patient still with some agitation at times, but she is taking her medications, and appetite is fair. MENTAL STATUS EXAM: Speech is fluent. The patient is responsive directly to questions. However, she remains disorganized, confused. She is oriented to person, not oriented to time or place. The patient still with some paranoia. When asked if she is hearing voices, the patient did not reply. ASSESSMENT: The patient still with some agitation, psychosis, confusion. PLAN: Continue hospitalization stabilization. Continue medication management. JOB# [id number]
--- NOTE | 2019-01-20 11:44 | Internal Medicine Prog Note ---
Internal Medicine Subjective - Subjective Patient seen and examined:: with staff, chart reviewed Patient is:: awake, interactive Per staff patient has:: no adverse event, no episodes of fall, agitated, tolerating meds Internal Medicine Objective - Results Recent Labs: Laboratory Last Values POC Glucose 153 MG/DL (70 - 105) H 01/17/19 22:05 - Physical Exam Vitals and I&O: Vital Signs Temp 96.8 F 01/20/19 06:10 Pulse 70 01/20/19 09:03 Resp 18 01/20/19 08:00 BP 129/62 01/20/19 09:03 Pulse Ox 93 01/20/19 06:10 Intake & Output 01/19/19 01/20/19 01/20/19 18:59 06:59 18:59 Intake Total 850 120 Balance 850 120 Intake: Oral 850 120 Other: # Voids 4 3 # Bowel Movements 1 0 Active Medications: Current Medications Acetaminophen (Tylenol) 650 mg PO Q4H PRN PRN Reason: Mild Pain / Temp above 100 Stop: 03/18/19 23:00 Aspirin (Aspirin Chewable) 81 mg PO DAILY [facility] Stop: 03/19/19 08:59 Last Admin: 01/20/19 09:02 Dose: 81 mg Divalproex Sodium (Depakote Sprinkle) 125 mg PO Q12HR [facility]; Protocol Stop: 03/21/19 20:59 Donepezil HCl (Aricept) 5 mg PO HS [facility] Stop: 03/19/19 20:59 Last Admin: 01/19/19 20:26 Dose: 5 mg Lactulose (Cephulac) 20 gm PO BID [facility] Stop: 03/19/19 08:59 Last Admin: 01/20/19 09:03 Dose: 20 gm Lorazepam (Ativan) 0.5 mg PO Q4H PRN; Protocol PRN Reason: Agitation Stop: 03/18/19 23:00 Magnesium Oxide (Mag-Oxide) 400 mg PO DAILY [facility] Stop: 03/19/19 08:59 Last Admin: 01/20/19 09:03 Dose: 400 mg Metoprolol Succinate (Toprol Xl) 12.5 mg PO BID [facility] Stop: 03/19/19 16:59 Last Admin: 01/20/19 09:03 Dose: 12.5 mg Multivitamins/Vitamin C (Theragran) 1 tab PO DAILY [facility] Stop: 03/19/19 08:59 Last Admin: 01/20/19 09:02 Dose: 1 tab Quetiapine Fumarate (Seroquel) 25 mg PO HS [facility]; Protocol Stop: 03/20/19 20:59 Last Admin: 01/19/19 20:26 Dose: 25 mg Zolpidem Tartrate (Ambien) 5 mg PO HS PRN PRN Reason: Insomnia Stop: 03/18/19 23:00 General: demented HEENT: NC/AT, PERRLA Neck: Supple Lungs: CTAB Cardiovascular: RRR, Normal S1, Normal S2 Abdomen: soft, non-distended, positive bowel sound Extremities: excoriation Neurological: no change, unable to follow command Internal Medicine Assmt/Plan - Assessment Assessment: ASSESSMENT AND PLAN: Chronic obstructive pulmonary disease, hypertension, hypercholesterolemia, psych disorder, dementia, malnutrition, erythrocytosis, leukocytosis of unclear etiology, and renal insufficiency. - Plan Plan: PLAN: . The patient to increase fluid and adjust the patient's antihypertensive medication. We will put the patient on nutrition support and continue bronchodilator treatment as needed basis. We will continue to monitor the patient closely.
[2019-01-20 12:52] VITALS: BP 140/80
--- NOTE | 2019-01-20 20:46 | Progress Notes ---
DATE: 01/20/2019 SUBJECTIVE: The patient was resting in bed when approached. The patient was alert, calm and cooperative. The patient was able to give her name and date of ; however, the patient stated that she is 67. When asked why she is here, the patient was not able to respond. The patient stated that she is eating well and she likes the food here. The patient stated that she is sleeping well. When asked if she is happy or sad, the patient stated that she is happy. When asked if she has any children, the patient did not respond. When asked if she is , the patient stated yes. When asked where her is, the patient did not respond. When asked if she has any auditory or visual hallucination or delusion, the patient denied. The patient also denied being agitated and aggressive. OBJECTIVE: The patient was calm and cooperative during the interview. The patient had difficulty responding to some other questions. The patient was slow in responding. The patient was unable to move her left upper and lower extremities. The patient was not able to say what happened. Staff reported that the patient was admitted for increased episodes of agitation and aggression. Staff reported that the patient has been cooperative and compliant with care and treatment, taking her medications without any difficulty. Staff reported that the patient has been eating and sleeping well and so far has not exhibited any aggressive behavior. The staff reported that the patient has a history of grinding teeth for a long time. ASSESSMENT: 1. Vascular dementia with possibly psychosis and depression with behavioral disturbance. 2. Psychotic disorder and mood disorder, depressed due to medical condition. 3. Impulse control disorder, not otherwise specified. 4. Personality change due to medical condition. PLAN: We will start the patient on Depakote Sprinkle 125 mg p.o. q. 12 hours for poor impulse control. We will continue to monitor the patient respond to the medication. We will consider adding antidepressant if appropriate. We will consider switching from Seroquel to Abilify if the patient exhibits psychotic symptoms. JOB# [id number] MARIE
[2019-01-21] MEDS: Multivitamin Tab PO SCH (09:08)
[2019-01-21] MEDS: Aspirin 81mg Chewable Tab PO SCH (09:08)
[2019-01-21] MEDS: Lactulose 10 Gm/15 mL 30mL UDC PO SCH ×2 (09:08→17:19)
--- NOTE | 2019-01-21 12:19 | Internal Medicine Prog Note ---
Internal Medicine Subjective - Subjective Patient seen and examined:: with staff, chart reviewed Patient is:: awake, interactive Per staff patient has:: no adverse event, no episodes of fall, agitated, tolerating meds Internal Medicine Objective - Results Recent Labs: Laboratory Last Values POC Glucose 153 MG/DL (70 - 105) H 01/17/19 22:05 - Physical Exam Vitals and I&O: Vital Signs Temp 97.3 F 01/21/19 05:57 Pulse 67 01/21/19 09:08 Resp 18 01/21/19 08:00 BP 94/69 01/21/19 09:08 Pulse Ox 97 01/21/19 05:57 Intake & Output 01/20/19 01/21/19 01/21/19 18:59 06:59 18:59 Intake Total 700 300 Balance 700 300 Intake: Oral 700 300 Other: # Voids 3 1 # Bowel Movements 0 0 Active Medications: Current Medications Acetaminophen (Tylenol) 650 mg PO Q4H PRN PRN Reason: Mild Pain / Temp above 100 Stop: 03/18/19 23:00 Aspirin (Aspirin Chewable) 81 mg PO DAILY [facility] Stop: 03/19/19 08:59 Last Admin: 01/21/19 09:08 Dose: 81 mg Divalproex Sodium (Depakote Sprinkle) 125 mg PO Q12HR [facility]; Protocol Stop: 03/21/19 20:59 Last Admin: 01/21/19 09:08 Dose: 125 mg Donepezil HCl (Aricept) 5 mg PO HS [facility] Stop: 03/19/19 20:59 Last Admin: 01/20/19 20:54 Dose: 5 mg Lactulose (Cephulac) 20 gm PO BID [facility] Stop: 03/19/19 08:59 Last Admin: 01/21/19 09:08 Dose: 20 gm Lorazepam (Ativan) 0.5 mg PO Q4H PRN; Protocol PRN Reason: Agitation Stop: 03/18/19 23:00 Magnesium Oxide (Mag-Oxide) 400 mg PO DAILY [facility] Stop: 03/19/19 08:59 Last Admin: 01/21/19 09:08 Dose: 400 mg Metoprolol Succinate (Toprol Xl) 12.5 mg PO BID [facility] Stop: 03/19/19 16:59 Last Admin: 01/21/19 09:08 Dose: Not Given Multivitamins/Vitamin C (Theragran) 1 tab PO DAILY [facility] Stop: 03/19/19 08:59 Last Admin: 01/21/19 09:08 Dose: 1 tab Quetiapine Fumarate (Seroquel) 25 mg PO HS [facility]; Protocol Stop: 03/20/19 20:59 Last Admin: 01/20/19 20:54 Dose: 25 mg Zolpidem Tartrate (Ambien) 5 mg PO HS PRN PRN Reason: Insomnia Stop: 03/18/19 23:00 Last Admin: 01/20/19 20:54 Dose: 5 mg General: demented HEENT: NC/AT, PERRLA Neck: Supple Lungs: CTAB Cardiovascular: RRR, Normal S1, Normal S2 Abdomen: soft, non-distended, positive bowel sound Extremities: excoriation Neurological: no change, unable to follow command Internal Medicine Assmt/Plan - Assessment Assessment: ASSESSMENT AND PLAN: Chronic obstructive pulmonary disease, hypertension, hypercholesterolemia, psych disorder, dementia, malnutrition, erythrocytosis, leukocytosis of unclear etiology, and renal insufficiency. - Plan Plan: PLAN: . The patient to increase fluid and adjust the patient's antihypertensive medication. We will put the patient on nutrition support and continue bronchodilator treatment as needed basis. We will continue to monitor the patient closely.
--- NOTE | 2019-01-21 21:29 | Progress Notes ---
DATE: 01/21/2019 SUBJECTIVE: The patient was resting in bed with the head of the bed up. The patient had eaten most of her breakfast, but had some Ensure as well as yogurt left on the table. The patient was cheerful and more verbal this morning. The patient reported that she is doing okay. The patient reported that she slept well. The patient reported that she is happy. When I asked why she is here, the patient was not able to give any answer. When asked how many siblings she has, the patient appeared to be confused and talking about her father that she has not seen in a while. When I asked again, the patient stated that she only has one brother. She was not able to give much information about him. The patient did not respond when I asked if she has any children. The patient denies any auditory or visual hallucination or delusion. The patient denied being agitated or aggressive. OBJECTIVE: The patient appeared to be more cheerful this morning and more verbal, but remained confused and not able to give appropriate response to the majority of the questions. The staff reported that the patient has been calm and cooperative with care and treatment. The patient continued to eat and sleep well. The patient continued to be compliant with medications. ASSESSMENT: 1. Vascular dementia with possibly psychosis and depression with behavioral disturbance. 2. Psychotic disorder and mood disorder, depressed due to medical condition. 3. Impulse control disorder, not otherwise specified. 4. Personality change due to medical condition. PLAN: We will continue patient on current medications and monitor patient's response and readjust medication as needed. [facility]# [id number] MARIE
[2019-01-22] MEDS: Aspirin 81mg Chewable Tab PO SCH (08:58)
[2019-01-22] MEDS: Multivitamin Tab PO SCH (08:58)
[2019-01-22] MEDS: Lactulose 10 Gm/15 mL 30mL UDC PO SCH ×2 (08:58→17:10)
--- NOTE | 2019-01-22 12:34 | Internal Medicine Prog Note ---
Internal Medicine Subjective - Subjective Patient seen and examined:: with staff, chart reviewed Patient is:: awake, interactive Per staff patient has:: no adverse event, no episodes of fall, agitated, tolerating meds Internal Medicine Objective - Results Recent Labs: Laboratory Last Values POC Glucose 153 MG/DL (70 - 105) H 01/17/19 22:05 - Physical Exam Vitals and I&O: Vital Signs Temp 97.4 F 01/22/19 06:37 Pulse 78 01/22/19 08:58 Resp 18 01/22/19 06:37 BP 113/77 01/22/19 08:58 Pulse Ox 98 01/22/19 06:37 Intake & Output 01/21/19 01/22/19 01/22/19 18:59 06:59 18:59 Intake Total 120 Balance 120 Intake: Oral 120 Other: # Voids 3 1 # Bowel Movements 0 0 Active Medications: Current Medications Acetaminophen (Tylenol) 650 mg PO Q4H PRN PRN Reason: Mild Pain / Temp above 100 Stop: 03/18/19 23:00 Aspirin (Aspirin Chewable) 81 mg PO DAILY [facility] Stop: 03/19/19 08:59 Last Admin: 01/22/19 08:58 Dose: 81 mg Divalproex Sodium (Depakote Sprinkle) 125 mg PO Q12HR [facility]; Protocol Stop: 03/21/19 20:59 Last Admin: 01/22/19 08:58 Dose: 125 mg Donepezil HCl (Aricept) 5 mg PO HS [facility] Stop: 03/19/19 20:59 Last Admin: 01/21/19 21:08 Dose: 5 mg Lactulose (Cephulac) 20 gm PO BID [facility] Stop: 03/19/19 08:59 Last Admin: 01/22/19 08:58 Dose: 20 gm Lorazepam (Ativan) 0.5 mg PO Q4H PRN; Protocol PRN Reason: Agitation Stop: 03/18/19 23:00 Magnesium Oxide (Mag-Oxide) 400 mg PO DAILY [facility] Stop: 03/19/19 08:59 Last Admin: 01/22/19 08:59 Dose: 400 mg Metoprolol Succinate (Toprol Xl) 12.5 mg PO BID [facility] Stop: 03/19/19 16:59 Last Admin: 01/22/19 08:58 Dose: 12.5 mg Multivitamins/Vitamin C (Theragran) 1 tab PO DAILY [facility] Stop: 03/19/19 08:59 Last Admin: 01/22/19 08:58 Dose: 1 tab Quetiapine Fumarate (Seroquel) 25 mg PO HS [facility]; Protocol Stop: 03/20/19 20:59 Last Admin: 01/21/19 21:08 Dose: 25 mg Zolpidem Tartrate (Ambien) 5 mg PO HS PRN PRN Reason: Insomnia Stop: 03/18/19 23:00 Last Admin: 01/20/19 20:54 Dose: 5 mg General: demented HEENT: NC/AT, PERRLA Neck: Supple Lungs: CTAB Cardiovascular: RRR, Normal S1, Normal S2 Abdomen: soft, non-distended, positive bowel sound Extremities: excoriation Neurological: no change, unable to follow command Internal Medicine Assmt/Plan - Assessment Assessment: ASSESSMENT AND PLAN: Chronic obstructive pulmonary disease, hypertension, hypercholesterolemia, psych disorder, dementia, malnutrition, erythrocytosis, leukocytosis of unclear etiology, and renal insufficiency. - Plan Plan: PLAN: . The patient to increase fluid and adjust the patient's antihypertensive medication. We will put the patient on nutrition support and continue bronchodilator treatment as needed basis. We will continue to monitor the patient closely. Nutritional Asmnt/Malnutr-PDOC - Dietary Evaluation Malnutrition Findings (Please click <Entered> for more info): Nutritional Asmnt/Malnutrition Start: 01/21/19 14: 54 Text: Status: Complete Freq: Protocol: Document 01/21/19 14:54 ALICE (Rec: 01/21/19 14:57 ALICE [id number]) Nutritional Asmnt/Malnutrition Patient General Information Nutritional Screening Moderate Risk Diagnosis Psychosis Pertinent Medical Hx/Surgical Hx COPD, Hypercholesterolemia, HTN, Psych disorder, Dementia, Malnutrition, Gastritis, CVA with Lt hemiplegia Subjective Information Pt is a 63-year-old female admitted on 01/17 c/o. Pt is eating an estimated 67% of meals x3 days (average) Per Meal/Nutrition Activity Record . Dietary is currently providing an estimated 2880 kcals and 130 gm Pro, per Pt PO intake this is providing an estimated 1930 kcals and 87gm Pro to meet 100+% kcal and 100+% Pro needs. Anthropometrics HT: 56 WT: 117 LB (53.18 kg) BMI: 18.88 (Normal) GI/ Skin Integrity GI: WNL, Flat, Soft, Non- tender BM: 01/19 x1 I/O: 1000/Not Noted Skin: WNL, Intact Kleber: 15 Diet Order: Cardiac, chopped, WILMER, Ensure Clear TID Estimated Energy Needs: ( Geriatric, CBW) 7964-3924 kcals (25-30 kcals/ kg) 53-64g Pro (1.0-1.2 g/kg) 9289-6167 ml (25-30 ml/kg) Current Diet Order/ Nutrition Support Cardiac, chopped, WILMER, Ensure Clear TID Pertinent Medications Cephulac, Mag-oxide, Theragran Pertinent Labs POC Glucose 153 Nutritional Hx/Data Height 1.68 m Height (Calculated Centimeters) 167.6 Current Weight (lbs) 53.07 kg Weight (Calculated Kilograms) 53.1 Weight (Calculated Grams) 59071.3 [place] Body Weight 130 LB (59.09 kg) % [place] Body Weight 90 Body Mass Index (BMI) 18.8 Weight Status Approriate GI Symptoms GI Symptoms None Last BM 01/19 x1 Skin Integrity/Comment: Skin: WNL, Intact Kleber: 15 Estimated Nutritional Goals BEE in Kcals: Using Current wt Calories/Kcals/Kg 25-30 Kcals Calculated 6385-5112 Protein: Using Current wt Protein g/k.0-1.2 Protein Calculated 53-64 Fluid: ml 3331-7889 ml (25-30 ml/kg) Nutritional Problem 1. Problem Problem No nutrition diagnosis at this time Etiology N/A Signs/Symptoms: N/A Malnutrition Related to Morbid Obesity Malnutrition related to morbid obesity No Intervention/Recommendation Comments Continue with Cardiac, chopped , WILMER, Ensure Clear TID diet as ordered. Expected Outcomes/Goals Expected Outcomes/Goals 1. PO intake to continue to meet >75% of nutritional needs . 2. Monitor PO intake, wt, nutrition related labs, and skin integrity. 3. F/U as low risk in 7-10 days, 01/28-01/31
--- NOTE | 2019-01-23 00:45 | Progress Notes ---
DATE: 01/22/2019 SUBJECTIVE: The patient was resting in bed, alert, quiet. The patient responded when talked to. The patient started grinding her teeth. The patient reported that she is doing okay. The patient continued to say that she is happy that she ate and slept well. When asked if she remember where she was prior to coming here, the patient stated that she has to ask her family, her son. When asked when was the last time she saw her son, the patient did not respond. The patient continued to deny any aggression or agitation. OBJECTIVE: The patient continued to be calm and pleasant when talked to. The patient appeared to be less verbal today than yesterday. The patient continued to be confused and disoriented. Staff reported that the patient has been doing okay. At times, the patient would reach for a cup of water and it appeared that the patient was trying to reach someone that standing near her as if she is being aggressive. When the patient got the cup of water she would drink it and then put it back on the table. The staff reported that the patient has been doing okay, has been eating and sleeping okay. No report of any inappropriate behavior. The patient continued to grind her teeth quite often. The patient had not made any statement to indicate that she is having hallucinations or delusions. ASSESSMENT: 1. Vascular dementia with possible psychosis and depression with behavioral disturbance. 2. Psychotic disorder and mood disorder, depressed due to medical condition. 3. Impulse control disorder, not otherwise specified. 4. Personality change due to medical condition. PLAN: We will continue the patient on current medications. The patient appeared to be doing okay. If the patient continued to show no agitation or aggression, we will consider discharging the patient in the next day or two on current medications. [facility]# [id number]
[2019-01-23] MEDS: Multivitamin Tab PO SCH (08:59)
[2019-01-23] MEDS: Aspirin 81mg Chewable Tab PO SCH (08:59)
[2019-01-23] MEDS: Lactulose 10 Gm/15 mL 30mL UDC PO SCH (09:01)
--- NOTE | 2019-01-23 14:59 | Internal Medicine Prog Note ---
Internal Medicine Subjective - Subjective Patient seen and examined:: with staff, chart reviewed, other (late entry- seen at 12 noon) Patient is:: awake, interactive Per staff patient has:: no adverse event, no episodes of fall, agitated, tolerating meds Internal Medicine Objective - Results Recent Labs: Laboratory Last Values POC Glucose 153 MG/DL (70 - 105) H 01/17/19 22:05 - Physical Exam Vitals and I&O: Vital Signs Temp 97.2 F 01/23/19 11:40 Pulse 70 01/23/19 11:40 Resp 18 01/23/19 11:40 BP 136/73 01/23/19 11:40 Pulse Ox 96 01/23/19 11:40 Intake & Output 01/22/19 01/23/19 01/23/19 18:59 06:59 18:59 Intake Total 1150 120 Balance 1150 120 Intake: Oral 1150 120 Other: # Voids 3 General: demented HEENT: NC/AT, PERRLA Neck: Supple Lungs: CTAB Cardiovascular: RRR, Normal S1, Normal S2 Abdomen: soft, non-distended, positive bowel sound Extremities: excoriation Neurological: no change, unable to follow command Internal Medicine Assmt/Plan - Assessment Assessment: ASSESSMENT AND PLAN: Chronic obstructive pulmonary disease, hypertension, hypercholesterolemia, psych disorder, dementia, malnutrition, erythrocytosis, leukocytosis of unclear etiology, and renal insufficiency. - Plan Plan: PLAN: . The patient to increase fluid and adjust the patient's antihypertensive medication. We will put the patient on nutrition support and continue bronchodilator treatment as needed basis. We will continue to monitor the patient closely. Nutritional Asmnt/Malnutr-PDOC - Dietary Evaluation Malnutrition Findings (Please click <Entered> for more info): Nutritional Asmnt/Malnutrition Start: 01/21/19 14: 54 Text: Status: Complete Freq: Protocol: Document 01/21/19 14:54 ALICE (Rec: 01/21/19 14:57 ALICE [id number]) Nutritional Asmnt/Malnutrition Patient General Information Nutritional Screening Moderate Risk Diagnosis Psychosis Pertinent Medical Hx/Surgical Hx COPD, Hypercholesterolemia, HTN, Psych disorder, Dementia, Malnutrition, Gastritis, CVA with Lt hemiplegia Subjective Information Pt is a 63-year-old female admitted on 01/17 c/o. Pt is eating an estimated 67% of meals x3 days (average) Per Meal/Nutrition Activity Record . Dietary is currently providing an estimated 2880 kcals and 130 gm Pro, per Pt PO intake this is providing an estimated 1930 kcals and 87gm Pro to meet 100+% kcal and 100+% Pro needs. Anthropometrics HT: 56 WT: 117 LB (53.18 kg) BMI: 18.88 (Normal) GI/ Skin Integrity GI: WNL, Flat, Soft, Non- tender BM: 01/19 x1 I/O: 1000/Not Noted Skin: WNL, Intact Kleber: 15 Diet Order: Cardiac, chopped, WILMER, Ensure Clear TID Estimated Energy Needs: ( Geriatric, CBW) 1871-9815 kcals (25-30 kcals/ kg) 53-64g Pro (1.0-1.2 g/kg) 7348-8893 ml (25-30 ml/kg) Current Diet Order/ Nutrition Support Cardiac, chopped, WILMER, Ensure Clear TID Pertinent Medications Cephulac, Mag-oxide, Theragran Pertinent Labs POC Glucose 153 Nutritional Hx/Data Height 1.68 m Height (Calculated Centimeters) 167.6 Current Weight (lbs) 53.07 kg Weight (Calculated Kilograms) 53.1 Weight (Calculated Grams) 24562.3 [place] Body Weight 130 LB (59.09 kg) % [place] Body Weight 90 Body Mass Index (BMI) 18.8 Weight Status Approriate GI Symptoms GI Symptoms None Last BM 01/19 x1 Skin Integrity/Comment: Skin: WNL, Intact Kleber: 15 Estimated Nutritional Goals BEE in Kcals: Using Current wt Calories/Kcals/Kg 25-30 Kcals Calculated 1924-5911 Protein: Using Current wt Protein g/k.0-1.2 Protein Calculated 53-64 Fluid: ml 2075-8504 ml (25-30 ml/kg) Nutritional Problem 1. Problem Problem No nutrition diagnosis at this time Etiology N/A Signs/Symptoms: N/A Malnutrition Related to Morbid Obesity Malnutrition related to morbid obesity No Intervention/Recommendation Comments Continue with Cardiac, chopped , WILMER, Ensure Clear TID diet as ordered. Expected Outcomes/Goals Expected Outcomes/Goals 1. PO intake to continue to meet >75% of nutritional needs . 2. Monitor PO intake, wt, nutrition related labs, and skin integrity. 3. F/U as low risk in 7-10 days, 01/28-01/31
--- NOTE | 2019-01-23 16:14 | Discharge Summary ---
DATE OF DISCHARGE: 01/23/2019 HISTORY OF PRESENT ILLNESS: The patient was admitted for increased agitation and anger outburst at the facility, [facility]. The patient also has episodes of refusing care. MENTAL STATUS EXAM: The patient was able to make short sentences, but usually irrelevant to the topic. The patient has somewhat disorganized thoughts. The patient was disoriented to time, place and person. The patient exhibits some paranoid delusions and agitation at times. The patient has poor insight and impaired judgment. HOSPITAL COURSE: Upon admission, the patient continued on her preadmission medications including Tylenol, aspirin, Aricept 5 mg at bedtime, lactulose, Ativan 0.5 mg q. 4 hours p.r.n., magnesium oxide, metoprolol, multiple vitamin, Seroquel 25 mg at bedtime and Ambien 5 mg at bedtime p.r.n. After admission, the patient did not exhibit any recurrent aggressive behavior. Initially, the patient had some difficulty verbalizing. Since the patient has history of being agitated and aggressive, therefore, the patient was started on Depakote 125 mg p.o. q. 12 hours for poor impulse control. The patient appeared to be responding well to the medication. The patient did not exhibit any aggressive behavior while she was here. The patient has been able to verbalize more fluently, but appeared to exhibit some psychotic symptoms. The patient reported that her uncle visited, but not able to say when. The patient mentioned about her uncle coming here for the Halloween and Thanksgiving. The staff reported that the patient has been eating and sleeping well with no recurrent episodes of agitation or aggression. Since the patient appeared to be responding well, therefore, the patient was discharged on January 23 back to [facility]. LABORATORY RESULTS: The patient had one glucose check on January 17, which was 153, slightly elevated. The other lab results were at [facility]. CONDITION AT THE TIME OF DISCHARGE: The patient was discharged in improved condition with no recurrent episodes of agitation and aggression. The patient has been calm and cooperative with care and treatment and taking her medications without any problem. The patient continues to be eating and sleeping well. DISCHARGE MEDICATIONS: The patient will continue Tylenol, aspirin, Depakote 125 mg q. 12 hours, Aricept 5 mg at bedtime, lactulose, Ativan 0.5 mg q. 4 hours p.r.n., magnesium oxide, metoprolol, multiple vitamin, Seroquel 25 mg at bedtime, Ambien 5 mg at bedtime p.r.n. FINAL DIAGNOSES: 1. Vascular dementia with psychosis and depression with behavioral disturbance. 2. Psychotic disorder and mood disorder, depressed due to medical condition. 3. Impulse control disorder, not otherwise specified. 4. Personality change due to medical condition. [facility]# [id number]
== END 2019-01-23 13:00 | DRG 885 ==
LOC: GERO 20:20
PROVIDERS: ADMIT Psychiatry & Neurology Psychiatry; ATTEND Psychiatry & Neurology Psychiatry
DX: F25.9 Schizoaffective disorder, unspecified (principal); F01.51 Vascular dementia, unspecified severity, with behavioral disturbance; E46 Unspecified protein-calorie malnutrition; Z68.1 Body mass index [BMI] 19.9 or less, adult; J44.9 Chronic obstructive pulmonary disease, unspecified; D75.1 Secondary polycythemia; E78.00 Pure hypercholesterolemia, unspecified; I10 Essential (primary) hypertension; D72.829 Elevated white blood cell count, unspecified; N28.9 Disorder of kidney and ureter, unspecified; F39 Unspecified mood [affective] disorder; F63.9 Impulse disorder, unspecified
CPT/HCPCS: 82948-90; 83036-90